=== PATIENT | male | born 2000 | race Caucasian/White ===

== ENCOUNTER 2023-04-26 08:28 | Outpatient (OUT) | payer BC, SELFPAY ==
--- NOTE | 2023-04-26 08:35 | MR_ITS ---
The [address] [address] Patient Name: SHY HARDWICK MRN: [facility]:[id number] date: 2000 Sex: M Assigned Patient Location: MRI Current Patient Location: MRI Accession/Order Number: [id number] Exam Date: 04/26/2023 08:57 Report Date: 04/26/2023 10:07 At the request of: SHADI BRITO Procedure: MR head/brain wo con MR head/brain wo con, 04/26/2023 8:57 AM EDT INDICATION: Migraine G43.909, Balance problem R26.89 COMPARISON: There is no appropriate prior study for comparison. TECHNIQUE: Multiplanar, multisequential MRI images of brain were obtained without injection of contrast. FINDINGS: The cerebral sulci as well as ventricular system are appropriate for age. There is no restricted diffusion. There is no intracranial mass, mass effect, midline shift, intra or extra-axial fluid collection or large hemorrhage. Normal flow-void in the intracranial vessels is noted. Retention cyst within the right maxillary sinus are noted. The visualized portions of orbits, mastoid air cells as well as remainder of paranasal sinuses are unremarkable. MR/MR head/brain wo con IMPRESSION: Normal MRI of brain. Electronically authenticated by: NORM TURNER Date: 04/26/2023 10:07
== END 2023-04-26 08:29 | disposition home or self-care (01) ==
LOC: MRI 08:31
PROVIDERS: PCP Family Medicine; Visit Provider Physician Assistant Medical
DX: G43.909 Migraine, unspecified, not intractable, without status migrainosus (principal); R26.89 Other abnormalities of gait and mobility
CPT/HCPCS: 70551

== ENCOUNTER 2023-06-22 16:37 | Emergency (ER) | payer BC, SELFPAY ==
[2023-06-22 16:39] VITALS: BP 153/97; PULSE 75; RESP 18; TEMP 36.6; O2SAT 100; BMI 23.7
--- NOTE | 2023-06-22 16:48 | ECG_ITS ---
The [facility] Test Date: 2023-06-22 Pat Name: SHY HARDWICK Department: Room: - Gender: Male Manager Summer: : 2000 Requested By: [id number] Order Number: [id number] Reading MD: KIRA RODGERS Measurements Intervals [place] Rate: 62 P: 51 AR: 136 QRS: 53 QRSD: 108 T: 76 QT: 370 QTc: 374 Interpretive Statements 1100 Sinus rhythm 2440 Incomplete right bundle branch block 9130 borderline ECG No previous ECG available for comparison Electronically Signed On 06-23-2023 6:56:29 EST by KIRA RODGERS
--- NOTE | 2023-06-22 16:48 | CT_ITS ---
The [address] [address] Patient Name: SHY HARDWICK MRN: [id number] date: 2000 Sex: M Assigned Patient Location: ED.MAIN Current Patient Location: Accession/Order Number: [id number] Exam Date: 06/22/2023 17:16 Report Date: 06/22/2023 17:42 At the request of: JUJU MATSON Procedure: CT head/brain wo con EXAM: CT head/brain wo con HISTORY: Vertigo COMPARISON: MRI brain 04/26/2023 TECHNIQUE: Axial CT scans through the head were obtained without IV contrast administration. Dose reduction techniques were achieved by using: automated exposure control and/or adjustment of mA and /or kV according to patient size and/or use of iterative reconstruction technique. FINDINGS: There is no acute intracranial hemorrhage or abnormal extra-axial fluid collection. No mass effect or midline shift is seen. There is no evidence of large acute territorial infarction. There is no hydrocephalus. To the limit of CT, the posterior fossa appears unremarkable. The calvaria and extra cranial soft tissues are unremarkable. The visualized orbits show no abnormal mass. The visualized paranasal sinuses show no air-fluid level. Mastoid air cells are clear. CT/CT head/brain wo con IMPRESSION: Unremarkable CT brain performed without contrast Electronically authenticated by: HORACIO NGUYEN Date: 06/22/2023 17:42
--- NOTE | 2023-06-22 16:56 | ED_ITS ---
HPI - Dizziness General Chief Complaint: Dizziness Stated Complaint: DIZZINESS Time Seen by Provider: 06/22/23 16:41 Source: patient Mode of arrival: walk-in Limitations: no limitations History of Present Illness HPI Narrative: 23-year-old male presents for intermittent dizziness that started the day before yesterday. No fever vomiting or diarrhea. No head injury. He doesn't complain of a headache. From time to time she feels like the whole room is spinning. No localized weakness or numbness. He had similar episode about six years ago but did not go and have it checked. Related Data Home Medications Medication Instructions Recorded Confirmed atogepant 60 mg tablet (Qulipta) 60 mg PO DAILY 06/22/23 06/22/23 Previous Rx's Medication Instructions Recorded meclizine 25 mg tablet 25 mg PO TID PRN dizziness #20 tabs 06/22/23 Allergies Allergy/AdvReac Type Severity Reaction Status Date / Time Penicillins Allergy Mild Verified 06/22/23 16:43 Review of Systems ROS Narrative A ten point review of systems is negative except as noted above. Exam Narrative Exam Narrative: Nurses note and vital signs reviewed and patient is not hypoxic. General: The patient appears well and in no apparent distress. Patient is resting comfortably on cart. Skin: Warm, dry, no pallor noted. There is no rash noted. Head: Normocephalic, atraumatic Eye: Normal conjunctiva, no drainage, EOMI. PERRL Ears, Nose, Mouth, and Throat: oral mucosa is moist. Nares patent. Tympanic membranes are normal in appearance. Cardiovascular: Regular Rate and Rhythm Respiratory: Patient is in no distress, no accessory muscle use, lungs are clear to auscultation, no wheezing, rales or rhonchi Back: non-tender GI: soft and nontender Musculoskeletal: The patient has no evidence of calf tenderness, no pitting edema, symmetrical pulses noted bilaterally Neurological: A&O x4, normal speech; upper and lower extremity strength intact Psychiatric: Cooperative Constitutional Vital Signs, click to edit/add: Last Vital Signs Temp 97.9 F 06/22/23 16:39 Pulse 80 06/22/23 17:02 Resp 18 06/22/23 17:02 BP 126/80 06/22/23 17:02 Pulse Ox 100 06/22/23 16:39 O2 Del Method Room Air 06/22/23 16:39 Course Vital Signs Vital signs: Vital Signs Temperature 97.9 F 06/22/23 16:39 Pulse Rate 75 06/22/23 16:39 Respiratory Rate 18 06/22/23 16:39 Blood Pressure 153/97 H 06/22/23 16:39 Pulse Oximetry 100 06/22/23 16:39 Oxygen Delivery Method Room Air 06/22/23 16:39 Temperature 97.9 F 06/22/23 16:39 Pulse Rate 80 06/22/23 17:02 Respiratory Rate 18 06/22/23 17:02 Blood Pressure 126/80 06/22/23 17:02 Pulse Oximetry 100 06/22/23 16:39 Oxygen Delivery Method Room Air 06/22/23 16:39 MDM - Dizziness MDM Narrative Medical decision making narrative: His workup including CT of the brain is negative. He'll be discharged home on Antivert. The patient happens to have a neurology appointment tomorrow and he'll keep that appointment. Treatment diagnosis and follow-up were discussed with the patient. Differential Diagnosis Differential diagnosis: Likely benign paroxysmal positional vertigo and other (dehydration, acute kidney injury, anemia, dysrhythmia) Lab Data Attestation: I reviewed the patient's lab results. Labs: Lab Results 06/22/23 Range/Units 16:54 WBC 5.7 (4.0-11.0) 10^3/uL RBC 4.77 (4.70-6.10) 10^6/uL Hgb 14.6 (14.0-18.0) g/dL Hct 42.1 (42.0-54.0) % MCV 88.3 (80.0-94.0) fL MCH 30.6 (25.9-34.0) pg MCHC 34.7 (29.9-35.2) g/dL RDW 11.5 (11.0-15.0) % Plt Count 253 (150-450) 10^3/uL MPV 9.9 (9.5-13.5) fL Neut % (Auto) 61.7 (43.0-75.0) % Lymph % (Auto) 25.3 (20.5-60.0) % [place] % (Auto) 8.0 (1.7-12.0) % Eos % (Auto) 3.7 (0.9-7.0) % Baso % (Auto) 1.1 (0.2-2.0) % Neut # (Auto) 3.5 (1.4-6.5) 10^3/uL Lymph # (Auto) 1.4 (1.2-3.8) 10^3/uL [place] # (Auto) 0.5 (0.3-0.8) 10^3/uL Eos # (Auto) 0.2 (0.0-0.7) 10^3/uL Baso # (Auto) 0.1 (0.0-0.1) 10^3/uL Abs Immat Gran (auto) 0.01 (0.00-0.03) 10^3/uL Imm/Tot Granulo (auto) 0.2 (0.0-0.5) % Sodium 139 (136-145) mmol/L Potassium 3.8 (3.5-5.1) mmol/L Chloride 104 (98-107) mmol/L Carbon Dioxide 29.9 (21.0-32.0) mmol/L Anion Gap 8.9 BUN 14.0 (7.0-18.0) mg/dL Creatinine 0.99 (0.70-1.30) mg/dL Est GFR ( Amer) >60 (>=60) Est GFR (Non-Af Amer) >60 (>=60) BUN/Creatinine Ratio 14.1 Glucose 101 (74-106) mg/dL Calcium 9.4 (8.5-10.1) mg/dL Imaging Data CT scan - head: Radiologist's impression: Procedure: CT head/brain wo con EXAM: CT head/brain wo con HISTORY: Vertigo COMPARISON: MRI brain 04/26/2023 TECHNIQUE: Axial CT scans through the head were obtained without IV contrast administration. Dose reduction techniques were achieved by using: automated exposure control and/or adjustment of mA and /or kV according to patient size and/or use of iterative reconstruction technique. FINDINGS: There is no acute intracranial hemorrhage or abnormal extra-axial fluid collection. No mass effect or midline shift is seen. There is no evidence of large acute territorial infarction. There is no hydrocephalus. To the limit of CT, the posterior fossa appears unremarkable. The calvaria and extra cranial soft tissues are unremarkable. The visualized orbits show no abnormal mass. The visualized paranasal sinuses show no air-fluid level. Mastoid air cells are clear. IMPRESSION: Unremarkable CT brain performed without contrast Electronically authenticated by: HORACIO NGUYEN Date: 06/22/2023 17:42 ECG Data Attestation: I personally reviewed and interpreted this ECG as follows: (EKG on my interpretation shows normal sinus rhythm with a rate of 62.) Discharge Plan Discharge Chief Complaint: Dizziness Clinical Impression: Vertigo Patient Disposition: Home, Self-Care Time of Disposition Decision: 18:25 Condition: Good Mode of Transportation: Private Vehicle Prescriptions / Home Meds: New meclizine 25 mg tablet 25 mg PO TID PRN (Reason: dizziness) Qty: 20 0RF No Action Qulipta 60 mg tablet 60 mg PO DAILY Instructions: Vertigo (ED) Stand Alone Forms: Portal Instructions Referrals: Campos Lee DO [Primary Care Provider] - 1 week
[2023-06-22] MEDS: MECLIZINE HCL 12.5 MG TABLET 25 MG PO (17:01)
[2023-06-22 17:02] VITALS: BP 126/80; PULSE 80; RESP 18
[2023-06-22 17:02] LABS: Basophils Absolute Auto 0.1 10^3/uL (0.0-0.1); Basophils Percent Auto 1.1 % (0.2-2.0); Eosinophils Absolute Auto 0.2 10^3/uL (0.0-0.7); Eosinophils Percent Auto 3.7 % (0.9-7.0); Hematocrit 42.1 % (42.0-54.0); Hemoglobin 14.6 g/dL (14.0-18.0); Immature Granulocytes Abs Auto 0.01 10^3/uL (0.00-0.03); Immature Granulocytes Pct Auto 0.2 % (0.0-0.5); Lymphocytes Absolute Auto 1.4 10^3/uL (1.2-3.8); Lymphocytes Percent Auto 25.3 % (20.5-60.0); Mean Corpuscular HGB Conc 34.7 g/dL (29.9-35.2); Mean Corpuscular Hemoglobin 30.6 pg (25.9-34.0); Mean Corpuscular Volume 88.3 fL (80.0-94.0); Mean Platelet Volume 9.9 fL (9.5-13.5); Monocytes Absolute Auto 0.5 10^3/uL (0.3-0.8); Neutrophils Absolute Auto 3.5 10^3/uL (1.4-6.5); Neutrophils Percent Auto 61.7 % (43.0-75.0); Platelet Count 253 10^3/uL (150-450); Red Blood Count 4.77 10^6/uL (4.70-6.10); Red Cell Distribution Width 11.5 % (11.0-15.0); White Blood Count 5.7 10^3/uL (4.0-11.0)
[2023-06-22 17:11] LABS: Anion Gap 8.9; BUN Creatinine Ratio 14.1; Calcium 9.4 mg/dL (8.5-10.1); Carbon Dioxide 29.9 mmol/L (21.0-32.0); Chloride 104 mmol/L (98-107); Estimated GFR (African America >60 (>=60); Estimated GFR (Non-African Ame >60 (>=60); Glucose 101 mg/dL (74-106); Potassium 3.8 mmol/L (3.5-5.1); Sodium 139 mmol/L (136-145)
== END 2023-06-22 18:48 | disposition home or self-care (01) ==
PROVIDERS: Emergency Provider Emergency Medicine; PCP Family Medicine
DX: R42 Dizziness and giddiness (principal); Z79.899 Other long term (current) drug therapy
CPT/HCPCS: 36415; 70450; 80048; 85025; 93005; 99285

== ENCOUNTER 2024-03-10 13:45 | Outpatient (OUT) | payer BC, SELFPAY ==
--- NOTE | 2024-03-10 13:47 | MR_ITS ---
The [address] [address] Patient Name: SHY HARDWICK MRN: [id number] date: 2000 Sex: M Assigned Patient Location: MRI Current Patient Location: Accession/Order Number: [id number] Exam Date: 03/10/2024 14:00 Report Date: 03/11/2024 06:48 At the request of: SHADI BRITO Procedure: MR head/brain wo con EXAMINATION: MR head/brain wo con HISTORY: Migraine Without Status Migrainosus, Dizziness COMPARISON: MR head/brain 04/26/2023 TECHNIQUE: A variety of imaging planes and parameters were utilized for visualization of suspected pathology. Images were performed without contrast. FINDINGS: CEREBRUM: No edema, hemorrhage, mass, acute infarction, or inappropriate atrophy. CEREBELLUM: No edema, hemorrhage, mass, acute infarction, or inappropriate atrophy. BRAINSTEM: No edema, hemorrhage, mass, acute infarction, or inappropriate atrophy. CSF SPACES: Ventricles, cisterns, and sulci are appropriate for age. No hydrocephalus, subarachnoid hemorrhage, or mass. SKULL: No mass or other significant visible lesion. SINUSES: A few tiny mucocele/retention cysts within the paranasal sinuses. ORBITS: Limited views are unremarkable. OTHER: Negative. MR/MR head/brain wo con IMPRESSION: 1. Mild chronic sinusitis. 2. No suspicious abnormality of the brain. Electronically authenticated by: JOEY WADDELL Date: 03/11/2024 06:48
== END 2024-03-10 13:46 | disposition home or self-care (01) ==
LOC: MRI 13:45
PROVIDERS: PCP Family Medicine; Visit Provider Physician Assistant Medical
DX: G43.909 Migraine, unspecified, not intractable, without status migrainosus (principal); R42 Dizziness and giddiness; J32.8 Other chronic sinusitis
CPT/HCPCS: 70551

== ENCOUNTER 2025-06-11 07:26 | Emergency (ER) | payer BC, SELFPAY ==
--- OUTSIDE RECORDS SUMMARY | 2017-08-05 06:31 | XMS_ITS | Continuity of Care Document ---
Author Organization [facility] Address [address] [place] [address] Phone Care Team Providers Care Nutter Up Name Role Phone Dc Fabian Unavailable Unavailable Procedures Procedure Date OFFICE/OUTPATIENT VISIT, EST MENB RP W/OMV VACCINE IM Imm Admin Through 18 Yrs Of Age 017 HPV 9 Valent Imm Admin Through 18 Yrs Of Age 017 MENB RP W/OMV VACCINE IM IMMUNIZATION ADMIN HPV VACCINE NON VALENT IM IMMUNIZATION ADMIN, EACH ADD MENB RP W/OMV VACCINE IM Imm Admin Through 18 Yrs Of Age 016 HPV 9 Valent Imm Admin Through 18 Yrs Of Age 016 HEP A VACC, PED/ADOL, 2 DOSE Imm Admin Through 18 Yrs Of Age 016 HPV 9 Valent Imm Admin Through 18 Yrs Of Age 016 Meningococcal Conjugate Vaccine 016 IMMUNIZATION ADMIN HEP A VACC, PED/ADOL, 2 DOSE IMMUNIZATION ADMIN, EACH ADD HPV VACCINE NON VALENT IM MENINGOCOCCAL VACCINE, IM Imm Admin Through 18 Yrs Of Age 011 HEP A VACC, PED/ADOL, 2 DOSE Imm Admin Through 18 Yrs Of Age 011 MENINGOCOCCAL VACCINE, IM Imm Admin Through 17 Yrs Of Age 011 TDAP VACCINE >7 IM OFFICE/OUTPATIENT VISIT, EST Advance Directives Directive Yes / No Effective Date File Name No Information Encounters Encounter Description Practice Location Reason(s) For Visit Diagnoses Date Provider Providers Copied on Encounter [facility], [address] [place], [place], [id number], [place] tel:[phone] [facility] No Information 7 Visci DO Dc. [address] [place], [place], [id number] , [place]. tel: [phone] OFFICE/OUTPAT IENT VISIT, EST [facility], [address] [place], [place], [id number], [place] tel:[phone] [facility] No Information 7 Visci DO Dc. [address] [place], [place], [id number] , [place]. tel: [phone] [facility], [address] [place], [place], [id number], [place] tel:[phone] [facility] No Information 7 Visci DO Dc. [address] [place], [place], [id number] , [place]. tel: [phone] [facility], [address] [place], [place], [id number], [place] tel:[phone] [facility] No Information 6 Visci DO Dc. [address] [place], [place], [id number] , [place]. tel: [phone] [facility], [address] [place], [place], [id number], [place] tel:[phone] [facility] No Information 2 6 Visci DO Dc. [address] [place], [place], [id number] , [place]. tel: [phone] OFFICE/OUTPAT IENT VISIT, [facility], [address] [place], [place], [id number], [place] tel:[phone] [facility] No Information 1 Cruz Oliver. [address] [place], [place], [id number] , [place]. tel:[phone] Family History Family Member Type Diagnosis Age At Onset No Information Immunizations Vaccine Date Status Comments meningococcal B, OMV, 2 dose schedule administered Source: New Immuniza tion Record Influenza virus vaccine, injectable, quadrivalent, split virus, preservative free, 3 years or older Fluarix, Flulaval or Fluzone Quad refused Source: New Immuniza tion Record HPV (9-valent) administered Source: New I mmunization Record Influenza virus vaccine, injectable, quadrivalent, split virus, preservative free, 3 years or older Fluarix, Flulaval or Fluzone Quad refused Source: New Immuniza tion Record meningococcal B, OMV, 2 dose schedule administered Source: New Immuniza tion Record HPV (9-valent) administered Source: New I mmunization Record Influenza virus vaccine, injectable, quadrivalent, split virus, preservative free, 3 years or older Fluarix, Flulaval or Fluzone Quad refused Source: New Immuniza tion Record Hep A (ped/adol, 2 dose) administered Britt rce: New Immunization Record HPV (9-valent) administered Source: New I mmunization Record MCV4 administered Source: New Imm unization Record Hep A (ped/adol, 2 dose) administered Britt rce: New Immunization Record Tdap administered Source: New Imm unization Record MCV4 (11-55 yrs) administered Source: New Immunization Record Payers Payer name Insurance type Covered alliance party ID Authoriza tion(s) [employer] [place] [id number] Medicaid Wrap - [employer] [place] [id number] [employer] [place] [id number] Medicaid Wrap - [employer] [place] [id number] [employer] [place] [id number] Medicaid Wrap - [employer] MC [id number] [employer] MC [id number] Medicaid Wrap - [employer] [place] [id number] [employer] MC [id number] Medicaid Wrap - [employer] MC [id number] Social History Type Description Quantity Date Captured Comments Sex Male Smoking Status No Information Chief Complaint And Reason For Visit No Information Reason For Referral Reason For Referral No Information History Of Present Illness Encounter Date Complaint History Of Prese nt Illness No Information Functional Status Date Functional Assessmen t No Information Instructions Date Instruction Additional Infor mation No Information Assessments Type Assessment Date No Information Patient Care Teams Name Effective Dates (start - stop) Status Members No Information
--- OUTSIDE RECORDS SUMMARY | 2025-06-08 04:10 | XMS_ITS | Continuity of Care Document ---
Author Organization [facility] Address [address] [place] [address] Phone Care Team Providers Care Director Of Midwifery/Staff Midwife Name Role Phone Jesus Campos MATA Primary Care Provider Campos Lee DO Attending Provider [phone] Mayra Hylton DO Attending Provider Care Teams Patient Care Team Team Status: Active Member Role/Relationship Status Dates Campos Lee DO Primary Care Provider Active Visit Care Team Team Status: Inactive Member Role/Relationship Status Dates Campos Lee DO Primary Care Provider Active Sta rt: March 30, 2025 End: March 30deacon Lee DOAttmushtaq ProviderActiveStart: March 30, 2025 End: March 30, 2025 Visit Care Team Team Status: Inactive Member Role/Relationship Status Dates Campos Lee DO Primary Care Provider Active Sta rt: April 30, 2025 End: April 30deacon Lee DOAttending ProviderActiveStart: April 30, 2025 End: April 30, 2025 Patient Care Team Team Status: Inactive Member Role/Relationship Status Dates Campos Lee DO Primary Care Provider Active Sta rt: June 08, 2025 End: June 08reg Hylton DOAttending ProviderActiveStart: June 08, 2025 End: June 08, 2025 Chief Complaint and Reason for Visit Chief Complaint Admit Date 3 month follow up March 30, 2025 8: 37am lung soreness post covid per bpk Septemb 2024 10:23am 3-4 month follow up June 08, 2025 8 :52am Reason for Visit Admit Date Abdominal pain March 30, 2025 8: 37am Bilateral hand numbness March 30 8:37am Gastritis and duodenitis March 30 8:37am Numbness and tingling of both feet Augus t 2024 8:37am Post covid-19 condition, unspecified Sep tember 2024 10:23am Acid reflux June 08, 2025 8 :52am Bloating June 08, 2025 8 :52am Allergies, Adverse Reactions, Alerts Allergen Type Severity Reaction Last Updated Verified Status banana Allergy Moderate Swelling of Lip/Tongue/Throat June 08, 2025 8:53am Yes Active Penicillins Allergy Unknown Itching, hives May 112024 8:53am Yes Active egg Allergy Unknown Itching June 08, 2025 8:53am Yes Active Social History Smoking Status Status Start Date End Date Date of Observa tion Smokes tobacco daily (finding) January 30, 2025 10:20am Observation Status Observation Response Date of Response Legal Sex Male (finding) Sex Assigned At BirthMaleSeptember 1999 Family History Relationship Condition Age at Onset Recorded Date/T marco father Seizures Unknown motherMigraine headacheUnknownpaternal grandmotherHypertensionUnknownHigh blood cholesterolUnknownHeart diseaseUnknownGlaucomaUnknownfamily memberMalignant neoplasmUnknownpaternal grandfatherHigh blood cholesterolUnknownDementiaUnknown HypertensionUnknownHeart diseaseUnknown Problems Active Problems Problem Diagnosis/Recorded Date Onset Date Stat us Change in bowel habits June 23, 2024 11:25am Unk nown Active Cervical spine pain October 09, 2024 11:12am Unknown Active Fatigue December 01, 2023 10:45am Unknown Act nae Hypotestosteronism December 15, 2024 9:17am Unknown A ctive Migraines December 06, 2021 5:21pm Unknown Acti ve Lack of motivation October 09, 2024 11:43am Unknown Active Neutropenia October 27, 2023 11:28am Unknown Act nae Elevated liver enzymes July 10, 2024 3:26pm Unkno wn Active Vertigo October 27, 2023 11:06am Unknown Act nae Viremia July 10, 2024 3:26pm Unknown Ac tive Bloating August 10, 2024 1:09pm Unknown Act nae BRBPR (bright red blood per rectum) August 10, 2024 1:08pm Unknown Active Lumbar pain October 26, 2023 5:19pm Unknown Acti ve Left foot pain October 09, 2024 11:12am Unknown Ac tive Blood in stool June 23, 2024 11:25am Unknown Active Blood in stool January 05, 2025 9:26am Unknown Acti ve Acid reflux October 26, 2023 5:19pm Unknown Acti ve Abdominal pain June 23, 2024 11:25am Unknown Active Abdominal pain January 05, 2025 9:26am Unknown Acti ve Elevated LDL cholesterol level October 26, 2023 5:19pm Unknown Active Open-angle glaucoma June 23, 2024 11:09am Unknow n Active Vitamin D deficiency October 26, 2023 5:19pm Unknown Active Hepatomegaly July 19, 2024 12:36pm Unknown Active Inactive/Resolved Problems Problem Diagnosis/Recorded Date Onset Date Stat us EBV positive mononucleosis syndrome July 19 12:36pm Unknown Resolved Mononucleosis July 19, 2024 12:30pm Unknown Resolved Melena August 10, 2024 1:02pm Unknown Res olved Medications Medication Status Dose Units Route Directions Qty Days Refills S tart Date Stop Date End Date Reason(s) Instructions Adherence Prednisone 20 mg tablet Discontinued 20 MG PO .COMPLEX 15 10 1 October 25, 2024 3:17pm December 15, 2024 8:52am20 mg orally BID x 5 days , QD x 5 days;Pantoprazole 40 mg tablet,delayed release (DR/EC)Szrnsy14NGZWGbtqw267Ejyf 2024 12:00am Complies with drug therapyClotrimazole-Betamethasone 1-0.05 % bguztAryqjr1WIDSSZ TOPICALTwice iumkk324Yzcaabtsk 2024 12:00amComplies with drug therapy Ondansetron 4 mg tablet,emgrevdirjazezUpmqzennadno9ZOPNL7F091Qtopb 2021 12:00amMarch 2023 10:48amAzithromycin (Zithromax Z-Dante) 250 mg tablet Tfzpvlclrdig9OU.ELMOBYB93Zqjoe 2021 12:00amMarch 2023 5:16pmFor 250 mg dose pack: take 500 mg today (day 1), then 250 mg for 4 days (days 2-5) Divalproex 250 mg tablet,delayed release (DR/EC)Koksoddlxuao651HNDGTnjgu daily June 23, 2024 1:00amJanuary 2024 1:04pmZavegepant (Zavzpret) 10 mg/actuation spray,non-nwmaezrQcwbuhlrrukk8PWMPPGIOYBOYCRZNphi as neededNovember 2023 1:00amJanuary 2024 1:04pmCholecalciferol (Vitamin D3) 25 mcg (1,000 unit) dqaazsnDizsutcrtpai73SASXMOzfugCudzrtap 2023 1:00amDeceer 2023 11:41amDiclofenac Sodium (Arthritis Pain (Diclofenac)) 1 % gel Ljkijertwxxm7NFTHNOZFGIiol times daily as needed for oyml7919Zvxenge 2024 1:00amMarch 2024 11:47amGabapentin 100 mg jsnfbvbSpqxwfzztzhi723PREEIqats ddnuv715Kbbytu 2024 12:00amOctober 2024 8:58amFluticasone Propionate 50 mcg/actuation spray,bexfphzpojNnrsbrighxuo0ZLGVOWVJDJHBQXYUmgrzLxsqn 2023 12:00amMarch 2023 10:48amAtogepant 60 mg uhabymQmtraswymews04FHKM DailyC[facility] 2023 12:00amNovember 2023 11:18amPrednisone 20 mg tablet Ldrvhuxmbrat37MRJUYoekv532Skwgg 2023 12:00amApril 2023 10:44amBID X 5 DAYS, QD X 5 DAYSMethylprednisolone 4 mg tablets,dose gibiHhozjbqhawss9FRbkv package omycowwpwu250Oapbwzfp 11th, 2024 1:00amJanuary 2024 1:04pmPO PER PKG DIRPrednisone 20 mg elcjgpLxgcgszcnkls80TGNQ.NGWFLRW99342Uopzg 2024 1:00amMarch 2024 3:17pm20 mg orally BID x 5 days , QD x 5 days;Diclofenac Sodium (Arthritis Pain (Diclofenac)) 1 % xhmWnhdyjqrirle6VABTEACVHFyvg times daily as needed for rcnr9681Cllww 2024 11:47amJune 2024 2:10pm Cholecalciferol (Vitamin D3) 50 mcg (2,000 unit) fndxnvsIorlup594HWHNMVdlcqJqg 2024 12:00amComplies with drug therapyAscorbate Calcium (Vitamin C) 500 mg uuygniImwlzm070OLQOAyysyXig 2024 12:00amComplies with drug therapyMagnesium Glycinate 100 mg magnesium gkrozmsQuoiut274PFWIYpyqmGob 2024 12:00am Complies with drug therapyPrednisone 20 mg ilaoqkWszliqjbxuhl54ZVFO.ZDKGIWW191 April 30, 2025 12:00amOctober 2024 8:58am20 mg orally BID for five days, QD for five days;Budesonide-Formoterol (Symbicort) 160-4.5 mcg/actuation HFA aerosol ieaxdfxOfbudjkhkrqh7STENUSNKJYADALuhdw daily10.21Sept2024 12:00amOctober 2024 8:58am Immunizations Immunization Event Date Not Given Reason Dose Number Production Manager Lot Number Reason(s) Given Vaccine Information Statement (VIS) Detail Administration Location Meningococcal B, OMV September 15, 2016 Meningococcal B, OMVMarch 2016DTap, unspecifiedNovember 1998DTap, unspecifiedOctober 1999DTap, unspecifiedAugust 2003DTap, unspecified August 18, 1999DTap, unspecifiedMarch 1999Hepatitis A Vaccine, adol/ped, 2 doseAugust 2010Hepatitis A Vaccine, adol/ped, 2 doseAugust 2015Hepatitis B Vaccine, adol/ped dosageNov1998Hepatitis B Vaccine, adol/ped dosageJanuary 1999Hepatitis B Vaccine, adol/ped dosage June 07, 2000Hib, unspecified formulationNov1998Hib, unspecified formulationJanuary 1999Hib, unspecified formulationMarch 1999Hib, unspecified formulationOctober 1999Human Papillomavirus, 9 Valent March 10, 2016Human Papillomavirus, 9 ValentOctober 2015Human Papillomavirus, 9 ValentFebruary 2016Inactivated Poliovirus VaccineAugust 2003Meningococcal LKN7KCuehff 2015Meningococcal Vaccine (MCV4P)March 19, 2011Measles, Mumps, and Rubella Virus VaccineOctober 1999Measles, Mumps, and Rubella Virus VaccineAugust 2003polio, unspecified formulation June 26, 1999polio, unspecified formulationJanuary 1999polio, unspecified formulationJune 1999Tetanus, Diphtheria, Pertussis (Tdap) March 19, 2011Tetanus, Diphtheria, Pertussis (Tdap)March 27, 2023 Vital Signs Vital Reading Result Reference Range Collection Date/Time Height 69 [in_i] March 30, 2025 9:53pkYlvpii76.91 kgAugust 2024 9:00amHeart Rate68 /min 60-100August 2024 9:00amRespiratory rate16 /rqg32-88Nwatqv 2024 9:00amOxygen saturation by Pulse %95-100August 2024 9:00amBP Etxgydnr980 mm[Hg]100-140August 2024 9:00amBP Jqoojafpo56 mm[Hg]60-100 March 30, 2025 9:00amBMI (Body Mass Index)27.3 kg/q7Nfubao 2024 9:00am Vqdtbi59 [in_i]April 30, 2025 11:95atIwznnf93.91 kgSeptember 2024 11:00amHeart Rate66 /miu18-191Ebbmhwuvl 2024 11:00amRespiratory rate18 /jec73-23Yonrysgxn 2024 11:00amOxygen saturation by Pulse jvkryoru29 % 95-100September 2024 11:00amBP Uxrdgpjl720 mm[Hg]100-140September 2024 11:00amBP Nokqqhqhx89 mm[Hg]60-100September 2024 11:00amBMI (Body Mass Index)27.3 kg/l6Msbtruvfe 2024 11:97ocRfabwi19 [in_i]June 08, 2025 8:96huHzuuhj12.45 kgOctober 2024 8:57amBMI (Body Mass Index)28.8 kg/k6Epzlppr 2024 8:57am Advance Directives Advance Directive Response Recorded Date/ Time Advance Directives No December 24 9:26am Insurance Providers Guarantor Sebastian Brooke Address [address] [facility] [address]Qbhddmx Info.Home Phone: Coverage Status Update:2025 Payer Group Member ID Coverage Type Subscriber Relationship to Subscriber Effective Date Expiration Date MMO PEDRO [id number] A Baker Id: [id number] [address] [facility] [address] Home Phone: Email: declined 7..[employer] [place] Id: [id number] A Baker Id: [id number] [address] [facility] [address] [facility] [address] Home Phone: Email: declined 7..[facility] [place] PEDRO [id number] A Baker Id: [id number] [address] [facility] [address] [facility] [address] Home Phone: Email: declined 7..[facility] Id: [id number] Palm[place] Id: [id number] [address] [facility] [address] [facility] [address] Home Phone: Encounters Encounter Location(s) Arrival/Admit Date Discharge/Departure Date Discharge/Departure Disposition Provider(s) Departed Physician/ Provider Office Visit -[facility] [place] March 30, 2025 8:37am March 30, 2025 9:43am Discharged to home care or self care (routine discharge) Kodak West DO Departed Physician/ Provider Office Visit -[facility] April 30, 2025 10:23am April 30, 2025 11:37am Discharged to home care or self care (routine discharge) Kodak West DO Departed Physician/ Provider Office Visit -[facility] June 08, 2025 8:52am June 08, 2025 9:08am Discharged to home care or self care (routine discharge) Mayra Hylton DO Recent Diagnosis Onset Date Admit Date Abdominal pain Unknown March 30 8:37am Bilateral hand numbness Unknown March 102024 8:37am Gastritis and duodenitis Unknown March 30, 2025 8:37am Numbness and tingling of both feet Unknown March 30, 2025 8:37am Post covid-19 condition, unspecified Unknown April 30, 2025 10:23am Acid reflux Unknown June 08 8:52am Bloating Unknown June 08 8:52am Assessments Author Pennie [facility] 2024 9:15amThe above note written by Pennie KIDD acting as human recorder, note dictated by Dr. Campos Lee. Author Malkaarabella Brandt [facility] 2024 11:08amSooner if needed, ER if concerns. The above note written by Malka Brandt LPN, acting as human recorder, note dictated by Dr. Campos Lee. Plan of Treatment Author Pennie [facility] 2024 9:43amPatient did have colonscopy and EGD with Dr. Hylton in January. Colonoscopy noted mild diverticulosis in the right colon, one polyp removed, internal hemorrhoids, otherwise normal colon. Recommended the patient have another colonoscopy in five years. EGD noted esophagitis in the distal esophagus, mild gastritis, mild duodenitis, otherwise normal EGD status post small bowel, gastric, distal and proximal esophageal biopsies obtained. All biopsies were benign. I did prescribe gabapentin 100mg. Advised the patient to start taking at bedtime. If this doesn't cause drowsiness, he can take twice a day or two at bedtime. I would like to see the patient back in two months to follow up. Prescription provided of gabapentin. Noted on EGD results. I advised the patient he needs to continue with the pantoprazole. I will see the patient back early June as the patient might be moving to [place] end of June. Author Malka Brandt [facility] HospitalAuthoredSeptember 2024 11:36amI do feel pt would benefit from treatment with oral steroids and an inhaler for these persistent symptoms. Discussed risks, benefits, and dosing directions of these medications. Pt is agreeable to this treatment plan. He is to call if symptoms do not resolve. Future Tests Future scheduled test information is unavailable Pending Tests Pending diagnostic test information is unavailable Future Visits Future appointment information is unavailable Future Procedures Future procedure information is unavailable Future Medications Future medication information is unavailable Patient Instructions Patient instructions are unavailable
--- OUTSIDE RECORDS SUMMARY | 2025-06-11 07:37 | XMS_ITS | Encounter Summary ---
Author Organization [facility] Address [address] [place] [address] Care Team Providers Care Belt Picker Name Role Phone Jesus Campos Kodak DO Primary Care Provider [phone] Blake Beverly MD Unavailable [phone] Shannon Wharton Unavailable Shadi Brito Unavailable Curtis Zayas DO Unavailable [phone] Encounter Details DateTypeDepartmentCare Team (Latest Contact Info)Zjzagdbznqz98/03/2024linisync Result Encounter [facility] Unsolicited Shadi Brito PA [address] [place] [address] Social History Tobacco UseTypesPacks/DayYears UsedDateSmoking Tobacco: Every DayCigarettes Alcohol UseStandard Drinks/WeekCommentsNever0 (1 standard drink = 0.6 oz pure alcohol)caffeine intake: 1-2 cups per daySex and Gender InformationValueDate RecordedSex Assigned at BirthNot on fileLegal JmnHvii0710/21/2022 7:08 PM EDT Gender IdentityNot on fileSexual OrientationNot on filedocumented as of this encounter Plan of Treatment DateTypeDepartmentCare Team (Latest Contact Info)Hebikgbirmg33/19/2025 9:00 AM ESTOffice Visit [facility] [address] [place] [id number] Curtis Zayas DO [address] [place] [address] documented as of this encounter Procedures Procedure NamePriorityDate/TimeAssociated DiagnosisCommentsMR HEAD/BRAIN WO CON 03/11/2024 6:48 AM EDT documented in this encounter Results * MR HEAD/BRAIN WO CON (03/11/2024 6:48 AM EDT)Anatomical RegionLaterality ModalityOtherSpecimen (Source)Anatomical Location / LateralityCollection Method / VolumeCollection TimeReceived Time03/11/2024 6:48 AM EDT Narrative 03/11/2024 6:50 AM EDT [facility] ?[address] ? [place] [address] ? Magnetic Resonance Report ? Signed ? Patient: SHY BROOKE ? MR#: [id number] ?? : 2000 ?Acct:[id number] ?? Age/Sex: 23 / M ?ADM Date: 03/10/24 ?? Loc: MRI ? Attending Dr: Shadi PAIZ ? Ordering Physician: Shadi Brito ?? Date of Service: 03/10/24 ?? Procedure(s): MR head/brain wo con ?? Accession Number(s): [id number] ? cc: Campos Lee D.O.; Shadi Brito ? [facility] ? [address] ? [place] [address] ? Patient Name: ?? SHY Dowling RONEN ? MRN: [facility]:[id number] ? date: 2000 ?Sex: M ?? Assigned Patient Location: MRI ?? Current Patient Location: ? Accession/Order Number: [id number] ?? Exam Date: 03/10/2024 ??14:00 ?Report Date: 03/11/2024 ??06:48 ? At the request of: ?? SHADI ??LAYA ? Procedure: ??MR head/brain wo con ? EXAMINATION: MR head/brain wo con ? HISTORY: Migraine Without Status Migrainosus, Dizziness ? COMPARISON: MR head/brain 04/26/2023 ? TECHNIQUE: A variety of imaging planes and parameters were utilized for ?? visualization of suspected pathology. Images were performed without contrast. ? FINDINGS: ?? CEREBRUM: No edema, hemorrhage, mass, acute infarction, or inappropriate ?? atrophy. ?? CEREBELLUM: No edema, hemorrhage, mass, acute infarction, or inappropriate ?? atrophy. ?? BRAINSTEM: No edema, hemorrhage, mass, acute infarction, or inappropriate ?? atrophy. ?? CSF SPACES: Ventricles, cisterns, and sulci are appropriate for age. No ?? hydrocephalus, subarachnoid hemorrhage, or mass. ?? SKULL: No mass or other significant visible lesion. ?? SINUSES: A few tiny mucocele/retention cysts within the paranasal sinuses. ?? ORBITS: Limited views are unremarkable. ?? OTHER: Negative. ? MR/MR head/brain wo con ?? IMPRESSION: ? 1. Mild chronic sinusitis. ?? 2. No suspicious abnormality of the brain. ? Electronically authenticated by: BLAKE ??NADIRA ?? Date: 03/11/2024 ??06:48 ? Dictated By: ?Blake Diallo M.D. ? Signed By: ?03/11/24 0650 ? DD/ 0648 ? TD/TT: ? Wagon Washer: Procedure Note Radiology, Radiologist, - 03/11/2024 [place] [address] Magnetic Resonance Report Signed Patient: SHY BROOKE [facility]#: [id number] : 2000Acct:[id number] Age/Sex: 23 / MADM Date: 03/10/24 Loc: MRI Attending Dr: Shadi PAIZ Ordering Physician: Shadi Brito Date of Service: 03/10/24 Procedure(s): MR head/brain wo con Accession Number(s): [id number] cc: Campos Lee D.O.; Shadi Brito [place] [id number] Patient Name: SHY BROOKE MRN: [id number] date: 2000 Sex: M Assigned Patient Location: MRI Current Patient Location: Accession/Order Number: [id number] Exam Date: 03/10/2024 14:00 Report Date: 03/11/2024 06:48 At the request of: SHADI BRITO Procedure: MR head/brain wo con EXAMINATION: MR head/brain wo con HISTORY: Migraine Without Status Migrainosus, Dizziness COMPARISON: MR head/brain 04/26/2023 TECHNIQUE: A variety of imaging planes and parameters were utilized for visualization of suspected pathology. Images were performed withoutcontrast. FINDINGS: CEREBRUM: No edema, hemorrhage, mass, acute infarction, or inappropriate atrophy. CEREBELLUM: No edema, hemorrhage, mass, acute infarction, or inappropriate atrophy. BRAINSTEM: No edema, hemorrhage, mass, acute infarction, or inappropriate atrophy. CSF SPACES: Ventricles, cisterns, and sulci are appropriate for age. No hydrocephalus, subarachnoid hemorrhage, or mass. SKULL: No mass or other significant visible lesion. SINUSES: A few tiny mucocele/retention cysts within the paranasal sinuses. ORBITS: Limited views are unremarkable. OTHER: Negative. MR/MR head/brain wo con IMPRESSION: 1. Mild chronic sinusitis. 2. No suspicious abnormality of the brain. Electronically authenticated by: BLAKE DIALLO Date: 03/11/2024 06:48 Dictated By: Blake Diallo M.D. Signed By:03/11/2450 DD/ TD/TT: Wagon Washer: Authorizing ProviderResult TypeResult StatusAngela Laya PACLINISYNC IMAGINGFinal Result documented in this encounter Visit Diagnoses Not on filedocumented in this encounter Care Teams Team MemberRelationshipSpecialtyStart DateEnd Date Campos Lee DO [address] [place] [address] PCP - [facility]01/06/24 Blake Beverly MD [address] [place] [address] [place] [address] Referring SepiomaauMyfcrtikn75/14/24 Shannon Wharton PA Physician LcmfkqxkjSsnyaabtr04/14/24 Shadi Brito PA [address] [facility] [address] [place] [address] Physician AssistantNeurology01/08/25 Curtis Zayas DO [address] [place] [address] Otolaryngology01/08/25documented as of this encounter
--- OUTSIDE RECORDS SUMMARY | 2025-06-11 07:37 | XMS_ITS | Clinical Summary ---
Author Organization [facility] Address [address] [place] [place] [address] Care Team Providers Care Youth Associate Name Role Phone Samuel Leean Kodak DO Primary Care Provider [phone] Blake Beverly MD Unavailable Shannon Wharton Unavailable Nalini Asif Unavailable Curtis Zayas DO Unavailable [phone] Allergies Active AllergyReactionsCriticalityNoted CunxBsmqlptoVlblqlftrya16/29/2024 Medications MedicationSigDispense QuantityRefillsLast FilledStart DateEnd DateStatus Ascorbic Acid (VITAMIN C PO) Take by mouthActive Cholecalciferol (VITAMIN D3 PO) Take by mouthActive MAGNESIUM GLYCINATE PO Take by mouthActive pantoprazole (ProtoNix) 40 MG EC tablet Take 40 mg by mouth Daily5Active Active Problems ProblemNoted DateDiagnosed YwqlSnumykij91/29/2024 Overview (05/06/2024): Patient presented with migraines that have been occurring since he was 17 years old and are daily with symptoms of dizziness, visual changes, photophobia, and nausea. Patient headaches are Most consistent with migraine headache without aura with associated symptoms including vertigo and blurred vision. The patient had a CT scan of the brain 12/06/21 that was normal. The patient had a Holter Monitor that revealed sinus rthythm mechanism throughout. The patient had a routine EEG that was normal. The patient was previously taking Duexis that helped but he cannot get this anymore. He was started on eletriptan that did not work and he has side effects. Patient stopped taking amitriptyline as he felt it may have caused side effects. He did not have a benefit with doxepin. PSG 04/01/22 was negative for obstructive sleep apnea. He works third shift which is also likely influencing his symptoms. He did not like how he felt on Trileptal. He has had slight benefit with Emgality. He does not like to take medications. He has triptans at home but he does not always take these. He stopped Emgality due to potential side effects. He has had excellent response to Qulipta but he notes his insurance may deny this. The patient notes that he is now experiencing neuropathic pain around the eyes that is intermittent and sharp in nature. This is new for him. Ydxwlicrq31/29/2024 Overview (05/06/2024): The patient continues with dizziness manifested as difficulty focusing when turning his head. He states that this affects his balance as well. He had a significant episode 06/22/23 which prompted ER visit as he could not operate his browne at work due to his symptoms. CT brain 06/22/23 was unremarkable. He was started on meclizine and had some improvement. MRI of the brain 04/26/23 was unremarkable. Wjvjjavxnjw88/29/2024alance pnidjce9401/05/2024 Resolved Problems ProblemNoted DateDiagnosed DateResolved DateMild episode of recurrent major depressive peaogbvq40 Encounters DateTypeDepartmentCare ObgtFwcqddldvvo62/05/2025 10:45 AM EDTOffice Visit [facility] [address] [place] [id number] Brigitte Yadav, SAND OPERATOR COVID-19 (Primary Dx); Cough, unspecified type; Pharyngitis, unspecified owwoelvx28/05/2025Travelfrom Last 3 Months Family History Medical HistoryRelationNameCommentsHypertensionFatherSeizuresFatherHypertension MotherMigrainesMotherSeizuresMotherRelationNameStatusCommentsFatherMother Social History Tobacco UseTypesPacks/DayYears UsedDateSmoking Tobacco: Every DayCigarettes Tobacco Cessation:Ready to Q uit: Not Asked; Counseling Given: Not Answered Alcohol UseStandard Drinks/WeekCommentsNever0 (1 standard drink = 0.6 oz pure alcohol)caffeine intake: 1-2 cups per daySex and Gender InformationValueDate RecordedSex Assigned at BirthNot on fileLegal IlxGzyp2610/21/2022 7:08 PM EDT Gender IdentityNot on fileSexual OrientationNot on file Last Filed Vital Signs Vital SignReadingTime TakenCommentsBlood Xpxkvzzh496/78004/13/2025 10:44 AM EDT Hezlp405404/13/2025 10:44 AM HCHIggopefkbzv99.9 ??C (98.5 ??F)04/13/2025 10:44 AM EDTRespiratory Jjep971904/13/2025 10:44 AM EDTOxygen Sqmqnhsxwy67%04/13/2025 10:44 AM EDTInhaled Oxygen Concentration--Laqpte52.6 kg (186 lb 8.2 oz)04/13/2025 10:44 AM CJQCzeqcs883.3 cm (5' 9 )01/26/2025 9:09 AM EDTBody Mass Index27.54 01/26/2025 9:09 AM EDT Plan of Treatment DateTypeDepartmentCare Team (Latest Contact Info)Qgimmtkmrbh22/19/2025 9:00 AM ESTOffice Visit [facility] [address] [place] [address] Curtis Zayas, DO [address] [place] [address] Procedures Procedure NamePriorityDate/TimeAssociated DiagnosisCommentsSTREP DNA PROBE Ivdqgsd5904/13/2025 11:02 AM EDT Pharyngitis, unspecified etiology RAPID DNA MASBNVnzdagq80/05/2025 11:02 AM EDT Cough, unspecified type from Last 3 Months Results * STREP DNA PROBE (04/13/2025 11:02 AM EDT)ComponentValueRef RangeTest Method Analysis TimePerformed AtPathologist SignatureRESULTnegNegativeSpecimen (Source)Anatomical Location / LateralityCollection Method / VolumeCollection TimeReceived ZrwmWfrdnr29/05/2025 11:02 AM EDT Narrative Authorizing ProviderResult TypeResult StatusLindsalan Yadav NPPOINT OF CARE TEST ENTER/EDIT ORDERABLESFinal Result * (ABNORMAL) RAPID DNA COVID (04/13/2025 11:02 AM EDT)ComponentValueRef Range Test MethodAnalysis TimePerformed AtPathologist SignatureCOVID-19 NAATpositive NegativeSpecimen (Source)Anatomical Location / LateralityCollection Method / VolumeCollection TimeReceived WachAbmhfcfhcwjiwr42/05/2025 11:02 AM EDT Narrative Authorizing ProviderResult TypeResult StatusLindsalan Yadav NPPOINT OF CARE TEST ENTER/EDIT ORDERABLESFinal Result from Last 3 Months Insurance Care Teams Team MemberRelationshipSpecialtyStart DateEnd Campos Lee DO [address] [place] [address] PCP - General01/06/24 Blake Beverly MD [address] [place] [address] [place] [address] Referring RsttcpqlfHyytzjvys99/14/24 Shannon Wharton PA Physician JfzlglmxlYqdffwyec22/14/24 Nalini Asif PA [address] [place] [address] Physician AssistantNeurology01/08/25 Curtis Zayas DO [address] [place] [address] Otolaryngology01/08/25
--- OUTSIDE RECORDS SUMMARY | 2025-06-11 07:37 | XMS_ITS | Clinical Summary ---
Author Organization [facility] Address [address] [place] [address] Phone Care Team Providers Care Sighter Name Role Phone Unavailable Primary Care Provider Unavailabl e Social History Tobacco UseTypesPacks/DayYears UsedDateSmoking Tobacco: Never AssessedSex and Gender InformationValueDate RecordedSex Assigned at BirthNot on fileLegal Sex Male07/03/2022 8:16 PM ESTGender IdentityNot on fileSexual OrientationNot on file Plan of Treatment Not on file
--- OUTSIDE RECORDS SUMMARY | 2025-06-11 07:37 | XMS_ITS | Patient Health Record ---
Author Organization [facility] Address [address] [place] [address] Care Team Providers Care Software Development Project Manager Name Role Phone José Miguel Hahn Primary Care Provider SRIDHAR SANTOYO Unavailable Unavailable Allergies Allergen (clinical drug ingredient) Drug/Non Drug Allergy documented on EMR Reaction Allergy Type Onset Date Status PenicillinUnknownDrug AllergyActive Reason For Referral Reason referral from Dr. Zhen leigh (neurology) for evaluation to treat, concerns of depressed mood, feeling disconnected and trouble with focus. 06/30 Attempt Diagnosis 1 Encounter for screen ing examination for mental health and behavioral disorders (Z13.30) Referral Organization Referrals Referring Provider First Name SRIDHAR Referring Provider Last Name YARELIS Referring Provider Speciality Unknown Referred Organization [facility] Referred Address [address] [place], [place],[address], Referred Provider Specialty Medicatio ns Referral Priority Routine Medications Medication SIG (Take, Route, Frequency, Duration) Notes Start Date End Date Status Vilazodone HCl 10 MG Tablet 1 tablet wit h food Orally Once a day; Duration: 30 day(s) 5Active Social History Tobacco Use: Social History Observation Description Date Details (start date - stop date) Current Smoker NA - NA Social History GeneralSocial InfoQuestionAnswerNotesDepression Screening (PHQ-9):Little interest or pleasure in doing thingsNearly every dayFeeling down, depressed, or hopelessSeveral daysTrouble falling or staying asleep, or sleeping too much Several daysFeeling tired or having little energyNearly every dayPoor appetite or overeatingNearly every dayFeeling bad about yourself-or that you are a failure or have let yourself or your family downNot at allTrouble concentrating on things, such as reading the newspaper or watching televisionSeveral days Moving or speaking so slowly that other people could have noticed. Or the opposite being so fidgetyor restless that you have been moving around a lot more than usualSeveral daysThoughts that you would be better off , or of hurting yourself in some waySeveral days(Consider Suicide Assessment Risk)Total Score14 IntepretationModerate DepressionDrug/Alcohol:Social InfoQuestionAnswerNotes AUDIT-C (Standard)Did you have a drink containing alcohol in the past year?No Fjaxvq9YrrabuthraaexvHzssorwcFkesxyh Use:Social InfoQuestionAnswerNotesTobacco Control (Standard)Tobacco use:Current smoker? How often do you smoke cigarettes? Some days, but not every day Problems Problem Type SNOMED Code ICD Code Onset Dates Problem Status W/U Status Risk Notes Problem Mild recurrent major depression (65697294) Mild episode of recurrent major depressive disorder (F33.0) Activeconfirmed Vital Signs Heart Rate 82 /min 08/15/2024 Rbiginshwyv786.3 degrees Cddajpxzle93/07/2971Elhuhjrp11 %08/15/2024lood pressure jdihtpsxo28 mm Hg08/15/20244055Rzfagh70 in08/15/2024lood pressure systolic 125 mm Hg08/15/20245609Wjdwbe983.2 lbs08/15/2024BMI28.97 kg/m208/15/2024 Encounters Encounter Location Date Provider Diagnosis [facility] [address] [place] [address] 08/15/2024 Robinp Jovani Mild episode of recu rrent major depressive disorder F33.0 Assessments Encounter Date Diagnosis (ICD Code) Assessment Notes Treatment Notes Treatment Clinical Notes Section Notes 08/15/2024 Mild episode of recurrent major depressive disorder (ICD-10 - F33.0) . Patient will trial 10 mg of Viibryd and follow up in 30 days to discuss and evaluate. Patient also will undergo [employer] testing for possible genetic make-up and matching for potential medications inthe future. Informed consent obtained: YES, we discussed the diagnosis/diagnoses, the treatment options, treatment(s) recommended vs. no treatment. We discussed risks and benefits of treatment options, treatmentrecommendations vs. no treatment. . .Based on DSM V, this patient meets the criteria for the diagnosis of: _ .major depressive disorder Recommended treatment is: _ SSRI or SNRI . The patient verbalizes understanding with all questions answered thoroughly and is in agreement with treatment plan. . . Pharmacological management: . Alternative medication plans were discussed with the patient/guardian. All relevant side effects and potential adverse effects were discussed with the patient/guardian. Standard cautions and potential benefits were discussed. Patient/Guardian consented to the start/continuation of the treatment. . . Currently at low risk for self harm. Denies ongoing feelings of hopelessness. Denies ongoing suicidal ideation, intent or plan in session. . . FDA approved medication for this age group include Selective Serotonin Reuptake Inhibitors (SSRI) and Selective Norepinephrine Reuptake Inhibitors (SNRI). Selective serotonin reuptake inhibitors? can cause nausea, headache, upset stomach, diarrhea, constipation, anxiety, irritability, and sexual dysfunction. Please monitor for worsening of symptoms, especially suicidal ideations or morbid thoughts, and call office and or go to the emergency department immediately . Plan Of Treatment No Information Medical (General) History Medical History History ICD Code Migraines Hospitalization History Reason Date(Month/Year) sleep study
[2025-06-11 07:38] VITALS: BP 126/85; PULSE 78; TEMP 36.7; O2SAT 97; BMI 28.1
--- OUTSIDE RECORDS SUMMARY | 2025-06-11 07:40 | XMS_ITS | CCD ---
Author Organization [facility] CliniSymn Care Team Providers Care Detasseler Name Role Phone Campos Lee Primary Care Provider Campos Lee Attending Provider [phone] Carmencita Adams Unavailable Campos Lee Unavailable DO Campos Lee Primary Care Provider MD Vlad Byers Attending Provider [phone] MD Joey Beverly Referring Provider DO Campos Lee Primary Care Provider DO Campos Lee Attending Provider [phone] MD Eloy Turner Jr Emergency Provider DO Campos Lee Primary Care Provider [phone] DO Campos Lee Attending Provider Campos Lee MD Primary Care Provider Joey Beverly MD Unavailable [phone] Shannon Hughes Unavailable Campos Lee DO Primary Care Provider [phone] Campos Lee DO Attending Provider Shannon Santoyo PA-C Attending Provider Varinder Lee DO Attending Provider Campos Lee DO Primary Care Provider [phone] Campos Lee DO Attending Provider [phone] Campos Lee DO Primary Care Provider Campos Lee DO Primary Care Provider Joey Beverly MD Unavailable Unavailable Kuns DO, Campos Primary Care Provider [phone] Kuns DO, Campos Attending Provider Nalini Navarrete Unavailable Curtis Musa DO Unavailable Shannon Hughes Unavailable Kuns, Campos Attending Unavailable Kuns, Campos Admitting Unavailable Kuns, Campos Primary Care Unavailable Kuns, Campos Attending Unavailable Kuns, Campos Admitting Unavailable Kuns, Campos Primary Care Unavailable Kuns, Campos Attending Unavailable Kuns, Campos Admitting Unavailable Kuns, Campos Primary Care Unavailable Ly, Mayra L Admitting Unavailable Ly, Mayra L Attending Unavailable Kuns, Campos Primary Care Unavailable Kuns, Campos Primary Care Unavailable Kuns, Campos Attending Unavailable Kuns, Campos Admitting Unavailable Kuns, Campos Primary Care Unavailable Kuns, Campos Attending Unavailable Kuns, Campos Admitting Unavailable Shannon Santoyo C Admitting Unavailable HillShannon C Attending Unavailable Kuns, Campos Primary Care Unavailable Kuns, Varinder Attending Unavailable Kuns, Campos Primary Care Unavailable Kuns, Varinder Admitting Unavailable Kuns DO, Campos Primary Care Provider Ly DO, Mayra L Attending Provider [phone] Ly DO, Mayra L Other Provider [place] Marjorie KIDD Attending Provider Unavailab le Kuns DO, Campos Attending Provider [phone] JADE SAMANIEGO Attending Unavailable CURTIS MUSA Attending Unavailable DOUG GOODWIN Attending Unavailable SHANNON SANTOYO Attending Unavailable SHANNON SANTOYO Attending Unavailable NALINI ASIF Attending Unavailable CURTIS MUSA Referring Unavailable CURTIS MUSA Attending Unavailable NALINI ASIF Referring Unavailable NALINI ASIF Attending Unavailable NALINI ASIF Attending Unavailable Joey Beverly MD Unavailable Kuns DO, Campos Primary Care Provider Ly DO, Mayra Ayon Attending Provider Campos Lee DO Primary Care Provider [phone] Joey Beverly MD Unavailable [phone] Shannon Hughes Unavailable Nalini Navarrete Unavailable Campos Lee DO Primary Care Provider Mayra Hylton DO Attending Provider Unavailable Unavailable Unavailable Allergies Allergy ClassificationReported Allergen(s)Allergy TypeDate of OnsetReaction(s) Facility (20 sources)Penicillins; Translations: [Penicillins]Allergy to substance 40-94-2617Rgtsmzc, Itching, hivesS[facility] (10 sources)Egg proteinDrug allergyButler Hospital [employer] Other (16 sources)PenicillinDrug AllergyhiPlumas District Hospital [employer] Other (7 sources)banana allergenic extractDrug Allergytongue [facility] [employer] Other (1 source)EggDrug allergyButler Hospital [employer] Other (5 sources)Eggs or Egg-derived ProductsDrug allergyButler Hospital [employer] Other (20 sources)Banana Extract; Translations: [banana]Drug Ieetwjf60-04-1256Xmpfbyn, Itching, tongue itchy, Swelling of Lip/Tongue/ThroatScci Hospital [facility]ima (19 sources)egg extract; Translations: [egg]Drug Encgyac71-16-3922VxansceWay[facility] (15 sources)Egg Derived; Translations: [Egg Derived]Allergy to substance 04-54-1888Zczbuky ReactionScci Hospital Lima Medications Current Medications MedicationDrug Class(es)DatesSig (Normalized)Sig (Original)Ascorbic Acid (7 sources)Vitamin CAscorbic Acid (VITAMIN C PO) Take by mouth ActiveAtogepant (Qulipta) 60 MG tablet (6 sources)Start: 03-06-2024 End: 16-82-2942zpcl 1 tablet by mouth once dailyAtogepant (Qulipta) 60 MG tablet Indications: Migraine without status migrainosus, not intractable,unspecified migraine type (CMS/HCC) Take 1 tablet by mouth Daily 30 tablet 3 03/06/2024 05/10/2024 Discontinued (Side effects)Start: 88-28-0631dwsz 1 tablet by mouth once dailyAtogepant (Qulipta) 60 MG tablet Indications: Migraine without status migrainosus, not intractable,unspecified migraine type (CMS/HCC) Take 1 tablet by mouth Daily 30 tablet 3 03/06/2024 Activeatogepant 60 MG Oral Tablet [Qulipta] (2 sources)take 1 tablet by mouth every twenty-four hoursQulipta 60 MG 1 tablet Orally Once a day Activebetamethasone 0.5 mg/ml / clotrimazole 10 mg/ml topical cream (3 sources)Azole Antifungal, CorticosteroidStart: 70-45-6028Pmkyacbysrew- Betamethasone 1-0.05 % cream Active 1 APPLIC TOPICAL Twice daily 45 April 11, 2025 12:00am Complies with drug therapyStart: 10-87-0954Zyqoilzighyo- Betamethasone 1-0.05 % 1 application Externally Twice a day Feb, Active calcium ascorbate 500 mg oral tablet (5 sources)Start: 89-50-5748xvwf 1 tablet by mouth once dailyAscorbate Calcium (Vitamin C) 500 mg tablet Active 500 MG PO Daily December 15, 2024 12:00am Complies with drug therapycholecalciferol 0.05 mg oral capsule (20 sources)Vitamin DStart: 78-62-2645bngj 1 capsule by mouth once daily Cholecalciferol (Vitamin D3) 50 mcg (2,000 unit) capsule Active 100 MCG PO Daily December 15, 2024 12:00am Complies with drug therapyStart: 33-94-0548vnta 1 capsule by mouth once dailyCholecalciferol (Vitamin D3) 50 mcg (2,000 unit) capsule Active 50 MCG PO Daily December 15, 2024 12:00amStart: 06-23-2024 End: 58-98-2041ocby 1 capsule by mouth once dailyCholecalciferol (Vitamin D3) 25 mcg (1,000 unit) capsule Discontinued 25 MCG PO Daily June 23, 2024 1:00am July 19, 2024 11:41amCholecalciferol (VITAMIN D3 PO) Take by mouth Activeclotrimazole 10 mg/ml topical cream (1 source)Azole AntifungalStart: 74-32-9667Vwwnldhcxvxa 1 % 1 application Externally Twice a day for 7 day(s) Jun, Activedexamethasone 2 mg oral tablet (1 source)CorticosteroidStart: 47-30-1208Mzevfejebuiup 2 MG 1 tablet with food or milk Orally 1 tab TID X 3 days , 1 tab BID x 3 days and 1 tab QD x 3 days for 9 days Apr, Activedicyclomine hydrochloride 20 mg oral tablet (2 sources)AnticholinergicStart: 71-87-3558glfn 1 tablet by mouth twice daily as neededDicyclomine HCl 20 MG 1 tablet Orally Twice a day as needed for 30 days Oct, Activedoxepin hydrochloride 10 mg oral capsule (1 source)Tricyclic Antidepressanttake 1 capsule by mouth every twenty-four hoursDoxepin HCl 10 MG 1 capsule at bedtime Orally Once a day Activefamotidine 26.6 mg / ibuprofen 800 mg oral tablet (6 sources)Nonsteroidal Anti-inflammatory Drug, Histamine-2 Receptor Antagonist Start: 76-13-1671mxjx 1 tablet by mouth every eight hoursIbuprofen-Famotidine 800-26.6 MG 1 tablet Orally Three times a day for 30 day(s) Nov, Active 1.5 ml fremanezumab-vfrm 150 mg/ml auto-injector (7 sources)Start: 06-22-2024 End: 98-18-0253qczhcrdydvnt (Ajovy) 225 MG/1.5ML auto-injector Indications: Migraine without status migrainosus, not intractable, unspecified migraine type (CMS/HCC) Inject 1 pen (225 mg) under the skin every 30 (thirty) days 1.68 mL 2 08/30/2024 09/29/2024 Active1 ml galcanezumab-gnlm 120 mg/ml auto-injector (4 sources)Start: 25-22-5161gbfaqb 1 mL by subcutaneous injection every month Emgality 120 MG/ML 1 mL Subcutaneous monthly for 30 days samples Jun, ActiveStart: 65-27-2520Ogmkyvij 120 MG/ML as directed Subcutaneous Jun, ActiveMagnesium glycinate (7 sources)MAGNESIUM GLYCINATE PO Take by mouth ActiveMagnesium Glycinate 100 mg magnesium capsule (5 sources)Start: 37-27-5776Xbcfgzgus Glycinate 100 mg magnesium capsule Active 200 MG PO Daily December 15, 2024 12:00am Complies with drug therapyStart: 34-70-7635Lgrkjnclz Glycinate 100 mg magnesium capsule Active MG PO December 15, 2024 12:00ammeclizine hydrochloride 25 mg oral tablet (9 sources)AntiemeticStart: 06-23-2023 End: 76-82-8789cqxf 1 tablet by mouth three times daily as needed for dizziness meclizine (Antivert) 25 MG tablet Indications: Dizziness Take 1 tablet (25 mg) by mouth 3 (three) times a day as needed for dizziness 90 tablet 3 03/29/2024 04/28/2024 ActiveStart: 70-93-1837rhli 1 tablet by mouth every twenty-four hours Meclizine HCl 25 MG 1 tablet as needed Orally Once a day December, ActiveNo Name (No Known Home Meds) (3 sources)Start: 72-66-5088Sh Name (No Known Home Meds) Active August 10, 2024 12:00amomeprazole 40 mg delayed release oral capsule (2 sources)Proton Pump InhibitorStart: 14-33-8158qcfa 1 capsule by mouth once dailyOmeprazole 40 MG 1 capsule 30 minutes before morning meal Orally Once a day for 90 days Oct, Activepantoprazole 40 mg delayed release oral tablet (5 sources)Proton Pump InhibitorStart: 86-65-8536vhpg 1 tablet by mouth once dailyPantoprazole 40 mg tablet,delayed release (DR/EC) Active 40 MG PO Daily 90 January 30, 2025 12:00am Complies with drug therapypropranolol hydrochloride 40 mg oral tablet (5 sources)beta-Adrenergic BlockerStart: 03-29-2024 End: 20-83-2715irju 1 tablet by mouth in the morningpropranolol (Inderal) 40 MG tablet Indications: Migraine without status migrainosus, not intractable, unspecified migraine type (CMS/HCC) Take 1 tablet (40 mg) by mouth in the morning and 1 tablet (40 mg) before bedtime. 60 tablet 3 03/29/2024 05/10/2024 Discontinued (Side effects)SUMAtriptan 100 mg oral tablet (3 sources)Serotonin-1b and Serotonin-1d Receptor Agonisttake 1 tablet by mouth once, then take 2 tablets by mouth every two hoursSUMAtriptan Succinate 100 MG TAKE 1 TABLET AT ONSET OF HEADACHE, MAY REPEAT 1 TIME IN 2 HOURS. MAX OF 2 TABLETS PER DAY, MAX OF 2 DAYS PER WEEK Oral Active Completed/Discontinued Medications MedicationDrug Class(es)DatesSig (Normalized)Sig (Original)amitriptyline hydrochloride 25 mg oral tablet (3 sources)Tricyclic Antidepressanttake 1 tablet by mouth once daily at bedtime Amitriptyline HCl 25 MG TAKE 1 TABLET BY MOUTH ONCE DAILY AT BEDTIME Oral Not-TakingAtogepant (16 sources)Start: 10-26-2023 End: 45-37-4701idie 1 tablet by mouth once dailyAtogepant 60 mg tablet Discontinued 60 MG PO Daily October 26, 2023 12:00am June 23, 2024 11:18am Start: 10-26-2023 End: 49-93-8811xyhb 1 tablet by mouth once dailyAtogepant 60 mg tablet Discontinued 60 MG PO Daily October 25, 2023 11:00pm June 23, 2024 10:18am Start: 64-81-9308hgkh 60 mg by mouth once dailyAtogepant Active 60 MG PO Daily October 26, 2023 12:00amazithromycin 250 mg oral tablet (20 sources)Macrolide AntimicrobialStart: 12-06-2021 End: 89-33-8969Fkzyevblbhlr (Zithromax Z-Dante) 250 mg tablet Discontinued 0 PO .COMPLEX 6 0 December 06, 2021 12:00am October 26, 2023 5:16pm For 250 mg dose pack: take 500 mg today (day 1), then 250 mg for 4 days (days 2-5)take 2 tablets by mouth once daily, then take 1 tablet by mouth once dailyZithromax 250 MG 2 tablet on the first day, then 1 tablet daily for 4 days Orally as directed Nourho702 actuat budesonide 0.16 mg/actuat / formoterol fumarate 0.0045 mg/actuat metered dose inhaler (2 sources)Corticosteroid, beta2-Adrenergic AgonistStart: 04-30-2025 End: 42-34-0568Skndyvbyjt-Formoterol (Symbicort) 160-4.5 mcg/actuation HFA aerosol inhaler Discontinued 2 INH INHALATION Twice daily 10.2 1 April 30, 2025 12:00am June 08, 2025 8:58amdiclofenac sodium 0.01 mg/mg topical gel (16 sources)Nonsteroidal Anti-inflammatory DrugStart: 00-90-4679Imvjqtebjz Sodium (Arthritis Pain (Diclofenac)) 1 % gel Active 2 GM TOPICAL Four times daily as needed for pain October 09, 2024 11:47amStart: 97-91-2325Tzdtalyaxb Sodium (Arthritis Pain (Diclofenac)) 1 % gel Active 2 GM TOPICAL Four times daily as needed for pain October 09, 2024 10:47amStart: 09-04-2024 End: 97-21-5816Neefjvgxfh Sodium (Arthritis Pain (Diclofenac)) 1 % gel Discontinued 2 GM TOPICAL Four times daily as needed for pain 100 October 09, 2024 11:47am January 22, 2025 2:10pmStart: 09-04-2024 End: 78-84-9551Ylrgeoxrva Sodium (Arthritis Pain (Diclofenac)) 1 % gel Discontinued 2 GM TOPICAL Four times daily as needed for pain September 04, 2024 1:00am October 09, 2024 11:47amStart: 09-04-2024 End: 59-04-5129Uplpvrbawx Sodium (Arthritis Pain (Diclofenac)) 1 % gel Discontinued 2 GM TOPICAL Four times daily as needed for pain September 04, 2024 12:00am October 09, 2024 10:47amStart: 53-34-8522Vhgdlzprrd Sodium (Arthritis Pain (Diclofenac)) 1 % gel Active 2 GM TOPICAL Four times daily as needed for pain September 04, 2024 12:00ameletriptan 40 mg oral tablet (10 sources)Serotonin-1b and Serotonin-1d Receptor AgonistStart: 11-11-2020 Eletriptan Hydrobromide 40 MG 1 tablet Orally at onset of headache, limit 2 in 24 hr. Nov, Not-Takingfluticasone propionate 0.05 mg/actuat metered dose nasal spray (18 sources)CorticosteroidStart: 10-26-2023 End: 64-42-2796Pvoffgsazjy Propionate 50 mcg/actuation spray,suspension Discontinued 2 SPRAY INTRANASAL Daily October 26, 2023 12:00am October 27, 2023 10:48amStart: 32-20-9409tilb 2 spray(s) nasal route once dailyFluticasone Propionate 50 MCG/ACT 2 sprays in each nostril Nasally Once a day for 30 days Apr, Activegabapentin 100 mg oral capsule (3 sources)Anti-epileptic AgentStart: 03-30-2025 End: 12-20-7955whdd 1 capsule by mouth twice dailyGabapentin 100 mg capsule Discontinued 100 MG PO Twice daily 60 1 March 30, 2025 12:00am 2024 8:58amLORazepam 0.5 mg oral tablet (9 sources)BenzodiazepineStart: 38-87-2377totd 1 tablet by mouth every eight hours as neededLORazepam 0.5 MG 1 tablet Orally Q 8 hrs prn May cause drowsiness December, Not-TakingmethylPREDNISolone 4 mg oral tablet (12 sources)CorticosteroidStart: 07-19-2024 End: 87-53-2952Ytkrdawkvihyswpgke 4 mg tablets,dose pack Discontinued 0 PO per package directions 21 July 19, 2024 1:00am August 10, 2024 1:04pm PO PER PKG DIRondansetron 4 mg disintegrating oral tablet (20 sources)Serotonin-3 Receptor AntagonistStart: 12-06-2021 End: 66-49-9926difj 1 tablet by mouth every eight hoursOndansetron 4 mg tablet,disintegrating Discontinued 4 MG PO Q8H 9 3 0 December 06, 2021 12:00am October 27, 2023 10:48ampredniSONE 20 mg oral tablet (20 sources)Start: 04-30-2025 End: 08-71-7876Ivfafbhpnx 20 mg tablet Discontinued 20 MG PO .COMPLEX 15 0 April 30, 2025 12:00am June 08, 2025 8:58am 20 mg orally BID for five days, QD for five days;Start: 10-09-2024 End: 71-77-7880Umhaollapm 20 mg tablet Discontinued 20 MG PO .COMPLEX 15 10 October 25, 2024 3:17pm December 15, 2024 8:52am 20 mg orally BID x 5 days , QD x 5 days;Start: 10-27-2023 End: 22-24-3791Rlktbaxjdd 20 mg tablet Discontinued 20 MG PO Daily 15 October 27, 2023 12:00am December 01, 2023 10:44am BID X 5 DAYS, QD X 5 DAYSStart: 75-05-0460cvoabqXJLJ 20 MG 1 tablet Orally BID x 5 days and daily x 5 days December, ActiveTheraputic Injection (12 sources)Start: 98-80-6295Jxsybnbbme Injection Jun, 120 mgtiZANidine 4 mg oral tablet (20 sources)Central alpha-2 Adrenergic AgonistStart: 02-29-2024 End: 68-63-1629xdse 1 tablet by mouth at bedtimetiZANidine (Zanaflex) 4 MG tablet Indications: Neck pain 1/2 to 1 tab PO at bedtime for muscle spasm 30 tablet 5 08/30/2024 04/13/2025 Discontinued (Therapy completed)traZODone hydrochloride 50 mg oral tablet (12 sources)Serotonin Reuptake InhibitorStart: 11-29-2024 End: 81-94-8934mtxs 1 tablet by mouth at bedtimetraZODone (Desyrel) 50 MG tablet Indications: Shifting sleep-work schedule, affecting sleep Take 1 tablet (50 mg) by mouth at bedtime 30 tablet 3 11/29/2024 04/13/2025 Discontinued (Therapy completed)divalproex sodium 250 mg delayed release oral tablet (20 sources)Mood Stabilizer, Anti-epileptic AgentStart: 06-22-2024 End: 06-64-9253tjvm 1 tablet by mouth twice dailyDivalproex 250 mg tablet,delayed release (DR/EC) Discontinued 250 MG PO Twice daily June 23, 2024 1:00am August 10, 2024 1:04pmStart: 05-25-2024 End: 06-77-2147tiji 1 tablet by mouth in the morningdivalproex (Depakote) 500 MG EC tablet Indications: Migraine without status migrainosus, not intractable, unspecified migraine type (CMS/HCC) Take 1 tablet (500 mg) by mouth in the morning and 1 tablet (500 mg) before bedtime. Do not crush, chew, or split.. 60 tablet 2 05/25/2024 06/22/2024 Discontinued (Reorder)Start: 05-10-2024 End: 06-10-9006fcss 1 tablet by mouth in the morningdivalproex (Depakote) 250 MG EC tablet Indications: Migraine without status migrainosus, not intractable, unspecified migraine type (CMS/HCC) Take 1 tablet (250 mg) by mouth in the morning and 1 tablet (250 mg) before bedtime. Do not crush, chew, or split.. 60 tablet 2 05/10/2024 05/25/2024 Discontinued (Reorder)Zavegepant (13 sources)Start: 06-23-2024 End: 43-75-2857Kkdthtbslk (Zavzpret) 10 mg/actuation spray,non-aerosol Discontinued 1 SPRAY INTRANASAL Once as needed June 23, 2024 1:00am August 10, 2024 1:04pmStart: 06-23-2024 End: 67-04-3900Ramfleztyx (Zavzpret) 10 mg/actuation spray,non-aerosol Discontinued 1 SPRAY INTRANASAL Once as needed June 23, 2024 12:00am August 10, 2024 12:04pmStart: 70-41-7710Hcxudyjfzt (Zavzpret) 10 mg/actuation spray,non-aerosol Active 1 SPRAY INTRANASAL Once as needed June 23, 2024 12:00amZavegepant HCl 10 MG/ACT solution (20 sources)Start: 05-10-2024 End: 21-73-8356aasg 10 mg nasal route once daily as neededZavegepant HCl 10 MG/ACT solution Indications: Migraine without status migrainosus, not intractable, unspecified migraine type Administer 10 mg into affected nostril(s) Daily as needed (migraine) 8 each 1 05/10/2024 04/13/2025 Discontinued (Therapy completed)Start: 61-86-6848dvhi 10 mg nasal route once daily as needed Zavegepant HCl 10 MG/ACT solution Indications: Migraine without status migrainosus, not intractable, unspecified migraine type Administer 10 mg into affected nostril(s) Daily as needed (migraine) 8 each 1 05/10/2024 ActiveStart: 73-46-9389fjxa 10 mg nasal route once daily as neededZavegepant HCl 10 MG/ACT solution Indications: Migraine without status migrainosus, not intractable, unspecified migraine type (CMS/HCC) Administer 10 mg into affected nostril(s) Daily as needed (migraine) 8 each 1 05/10/2024 Active Problems Active Problems Problem ClassificationProblemDateDocumented DateEpisodic/ChronicAbdominal pain (20 sources)Abdominal pain; Translations: [Unspecified abdominal pain]Onset: 60-17-5589OkcapshcXejizroqannhcj/social admission (2 sources)Person with feared health complaint in whom no diagnosis is made; Translations: [Concern about disease without diagnosis]24-21-9789Dpvlwxvu Allergic reactions (20 sources)Photosensitivity; Translations: [Other specified acute skin changes due to ultraviolet radiation]Onset: 03-04-2022 Resolved: 03-38-1092DdxyatnqXrxbucsqs and vision defects (18 sources)Eye / vision finding; Translations: [Unspecified visual disturbance] Onset: 12-09-2021 Resolved: 62-76-7225FrjoidggVjsywoiuxe associated with dizziness or vertigo (20 sources)Dizziness; Translations: [Dizziness and giddiness]Onset: 12-09-2021 Resolved: 53-38-0630InwkykrlSlmetcip of white blood cells (20 sources)Neutropenia; Translations: [Neutropenia, unspecified]Onset: 963004-10-4230RugkohiPsakmbttk of lipid metabolism (20 sources)Pure hypercholesterolemia; Translations: [Pure hypercholesterolemia, unspecified]Onset: 49-74-3488UgaxwoyUwlclsonj of teeth and jaw (3 sources)Jaw pain; Translations: [Jaw pain]EpisodicEsophageal disorders (20 sources)Acid reflux; Translations: [Gastro-esophageal reflux disease without esophagitis]ChronicGastritis and duodenitis (3 sources)Gastroduodenitis; Translations: [Gastroduodenitis, unspecified, without bleeding]73-19-6361YljoytgcWkemjlacsdmiesed hemorrhage (20 sources)Hematochezia; Translations: [Melena]Onset: 11-30-280908 EpisodicGenitourinary symptoms and ill-defined conditions (3 sources)Cloudy urine; Translations: [Unspecified abnormal findings in urine] EpisodicGlaucoma (13 sources)Open-angle glaucoma; Translations: [Unspecified open-angle glaucoma, stage unspecified]75-87-9668VvtkhrtRwbnsgwx; including migraine (20 sources)Cluster headache; Translations: [Cluster headache syndrome, unspecified, not intractable]Onset: 12-03-2021 Resolved: 07-55-9662UhvogvsZtlqjdzm; including migraine (16 sources)Headache; Translations: [Recurrent headache]EpisodicMalaise and fatigue (16 sources)Fatigue; Translations: [Other fatigue]Onset: EpisodicMiscellaneous mental health disorders (2 sources)Depressed mood; Translations: [Other symptoms and signs involving emotional state]58-54-0053YnqjolooXrhjdajjxar deficiencies (20 sources)Vitamin D deficiency; Translations: [Vitamin D deficiency, unspecified]Onset: 46-13-1798QxihqooBjhxk connective tissue disease (1 source)Cramp and spasmEpisodicOther connective tissue disease (4 sources)Foot pain; Translations: [Pain in left foot]39-24-5675GmkxalfcPojjh connective tissue disease (3 sources)Pain in left foot; Translations: [Pain in left foot]10-09-2024 EpisodicOther ear and sense organ disorders (2 sources)Pain of ear structure; Translations: [Otalgia, bilateral]Episodic Other ear and sense organ disorders (1 source)Otalgia, bilateralEpisodicOther ear and sense organ disorders (1 source)Bilateral sensation of blocked ears; Translations: [Other specified disorders of ear, bilateral]35-16-6629XcuvnyzsBcttu endocrine disorders (5 sources)Hypotestosteronism; Translations: [Endocrine disorder, unspecified] 39-41-8303VgxiqfmyCkzgm endocrine disorders (2 sources)Endocrine disorder, unspecified; Translations: [Unspecified endocrine disorder]54-96-1194ConzfvxtEekjz gastrointestinal disorders (13 sources)Altered bowel function; Translations: [Change in bowel habit] 50-23-2481SbplodksZhtul gastrointestinal disorders (14 sources)Abdominal bloating; Translations: [Abdominal distension (gaseous)] 30-04-2237KvlajchyBcwfv gastrointestinal disorders (8 sources)Abdominal distension (gaseous); Translations: [Flatulence, eructation, and gas pain]47-12-6852DrskzswhNhimu infections; including parasitic (2 sources)Post-viral disorder; Translations: [Post covid-19 condition, unspecified]44-01-9169GbhjtnyRxtfw liver diseases (12 sources)Elevated liver enzymes level; Translations: [Abnormal levels of other serum enzymes]23-12-2367NrynmaqoYswax liver diseases (12 sources)Large liver; Translations: [Hepatomegaly, not elsewhere classified] 86-70-4855QbhawvcdEcxfk liver diseases (7 sources)Hepatomegaly, not elsewhere classified; Translations: [Hepatomegaly] 30-70-0776VxcavcvqOngap lower respiratory disease (2 sources)Cough; Translations: [Cough, unspecified type]98-72-4594XzxobhzlTrivb nervous system disorders (4 sources)Circadian rhythm sleep disorder of shift work type; Translations: [Circadian rhythm sleep disorder,shift work type]01-62-8236TknknwpQghqv nervous system disorders (13 sources)Tremor; Translations: [Tremor, unspecified]EpisodicOther nervous system disorders (3 sources)Numbness of hand; Translations: [Anesthesia of skin]03-30-2025 EpisodicOther nervous system disorders (3 sources)Paresthesia of foot ; Translations: [Anesthesia of skin]03-30-2025 EpisodicOther screening for suspected conditions (not mental disorders or infectious disease) (16 sources)Patient encounter status; Translations: [Encounter for screening for cardiovascular disorders]Onset: 12-03-2021 Resolved: 61-86-4132CxudrepkOepvf skin disorders (2 sources)Excessive sweating; Translations: [Generalized hyperhidrosis] 91-81-4866OrnovdcyOzzqf upper respiratory infections (20 sources)Frontal sinusitis; Translations: [Chronic frontal sinusitis]Onset: 12-09-2021 Resolved: 30-35-2167DzmigutVncew upper respiratory infections (2 sources)Pharyngitis; Translations: [Acute pharyngitis, unspecified]04-13-2025 EpisodicOtitis media and related conditions (1 source)Unspecified Eustachian tube disorder, bilateralEpisodicResidual codes; unclassified (20 sources)Hypersomnia; Translations: [Hypersomnia, unspecified]Onset: 073663-85-5060LcimudtGbumfgcs codes; unclassified (14 sources)Family history of seizure disorder; Translations: [Family history of epilepsy and other diseases ofthe nervous system]EpisodicResidual codes; unclassified (7 sources)Low motivation; Translations: [Other specified personal risk factors, not elsewhere classified]84-96-2131SkwsiyxiRzpwvilfdgh; intervertebral disc disorders; other back problems (20 sources)Low back pain; Translations: [Low back pain]Onset: 09-04-2024 57-26-2002OetqdxvdJvkkhsl (16 sources)Near syncope; Translations: [Syncope and collapse]Onset: 12-03-2021 Resolved: 90-47-6948VfalomdzEzzrd infection (20 sources)Viremia; Translations: [Viral infection, unspecified]Onset: 736739-11-7254FuxjmxquJtasb infection (1 source)COVID-19; Translations: [Lab test positive for detection of COVID-19 virus] Past or Other Problems Problem ClassificationProblemDateDocumented DateEpisodic/ChronicMood disorders (11 sources)Depressed mood; Translations: [Recurrent major depressive episodes, mild ]Onset: 01-04-2025 Resolved: 600971-55-9631OjmgzccSjnfjyx (1 source)Tinea corporisOnset: 06-20-2021 Resolved: 49-69-9880FkcvhmceYdeipbwoqda chest pain (1 source)Chest pain, unspecifiedOnset: 12-15-2021 Resolved: 54-71-3283DeeakmbmVeolq connective tissue disease (12 sources)Pain in left foot; Translations: [Pain in limb]Onset: 09-04-2024 45-68-8231PyuaztllWroxi gastrointestinal disorders (14 sources)Change in bowel habit; Translations: [Other symptoms involving digestive system]Onset: 905009-39-2805GmatmoamQvfub liver diseases (8 sources)Abnormal levels of other serum enzymes; Translations: [Other nonspecific abnormal serum enzyme levels]Onset: 043172-19-2031Whnwxvch Other nervous system disorders (1 source)Tremor, unspecifiedOnset: 12-15-2021 Resolved: 08-06-8881WefufgykIxeke nervous system disorders (20 sources)Impairment of balance; Translations: [Other abnormalities of gait and mobility]Onset: 362962-88-6866FzkvmjpjWlcepulv codes; unclassified (2 sources)Family history of epilepsy and other diseases of the nervous system Onset: 12-09-2021 Resolved: 53-64-3009VvjkjoqdScemujpd codes; unclassified (6 sources)Other specified personal risk factors, not elsewhere classified; Translations: [Other specified conditions influencing health status]Onset: 265488-70-3222DiinzqepCmvknog and intentional self-inflicted injury (1 source)Suicidal ideationsOnset: 12-09-2021 Resolved: 04-07-9932Dioqlvqc Results Test NameValueInterpretationReference RangeFacilityLaboratory - Microbiology and Antimicrobial susceptibilityon 64-77-3181BOOM-CoV-2 (COVID-19) RNA SAMY+probe Ql (Unsp spec)PositiveNegativeSamaritan HospitalNo Panel Informationon 04-13-2025 Interpretation and review of laboratory resultsAbnormGundersen Boscobel Area Hospital and ClinicsS. pyogenes DNA SAMY+probe Nom (Unsp spec)on 89-59-9409Kvtxjxkxfezmyb and review of laboratory resultsNoSt. Mary Rehabilitation HospitalRESULTNegativeNegativeSamaritan HospitalLon 01-30-2025L Specimen: [id number] Received: 01/30/25 Status: CARLOS ALBERTO Baird Num: [id number] Spec Type: Surgical Subm Dr: Mayra Hylton DO Tissues: A Colon Biopsy (SM BOWEL BX) B Gastric Biopsy (GASTRIC BX) C Esophagus Biopsy (DISTAL ESO BX) D Esophagus Biopsy (PROXIMAL ESO BX) E Colon Biopsy (TRANSVERSE POLYP) Procedures: HE/10, Gross/Micro L4/5, GMS II Dark Age/ Patient Sex Location Account Attending Physician Shy Hardwick [address] [place] [address] [id number] Mayra Hylton DO SPEC NUM: [id number] RECD: 01/30/25 STATUS: CARLOS ALBERTO BAIRD NUM: [id number] TYRONE: 01/30/25-1154 [facility] DR: Mayra Hylton DO ENTERED: 01/30/25-[address]: KATEY TYPE: Surgical DEPT: S ENTERED BY: [id number] RECV BY: [id number] ORDERED: HE/10, Gross/Micro L4/5, GMS II Dark ORDERED: HE/10, Gross/Micro L4/5, GMS II Dark Supplemental Report Addendum 1 Entered: 02/15/252035 To issue HSV I/II immunohistochemical stain was performed on the tissue block C with appropriate staining control from [facility] ONCOLOGY. HSV I/II: Negative Addendum Signed (signature on file) Adrian Armijo MD 02/15/25 1338 Pathological Diagnosis A. Duodenum (mucosal biopsies): Within normal limits No features of celiac disease or dysplasia seen B. Stomach (mucosal biopsies): Chronic gastritis, minimal and inactive with mild foveolar hyperplasia Specimen: [id number] Received: 01/30/25 Status: CARLOS ALBERTO Baird Num: [id number] Spec Type: Surgical Subm Dr: Mayra Hylton DO Tissues: A Colon Biopsy (SM BOWEL BX) B Gastric Biopsy (GASTRIC BX) C Esophagus Biopsy (DISTAL ESO BX) D Esophagus Biopsy (PROXIMAL ESO BX) E Colon Biopsy (TRANSVERSE POLYP) Procedures: HE/10, Gross/Micro L4/5, GMS II Dark Patient: Shy Hardwick [id number] (Continued) Specimen: [id number] Received: 01/30/25 (Continued) Pathological Diagnosis (Continued) Signed (signature on file) Kenny De La Rosa Jr., MD 02/02/25 1340 Specimen: [id number] Received: 01/30/25 Status: CARLOS ALBERTO Baird Num: [id number] Spec Type: Surgical Subm Dr: Mayra Hylton DO Tissues: A Colon Biopsy (SM BOWEL BX) B Gastric Biopsy (GASTRIC BX) C Esophagus Biopsy (DISTAL ESO BX) D Esophagus Biopsy (PROXIMAL ESO BX) E Colon Biopsy (TRANSVERSE POLYP) Procedures: HE/10, Gross/Micro L4/5, GMS II Dark Patient: Shy Hardwick [id number] (Continued) Specimen: [id number] Received: 01/30/25-1409 (Continued) Pathological Diagnosis (Continued) No Helicobacter pylori organisms, intestinal metaplasia, or dysplasia seen C. Esophagus, distal (mucosal biopsies): Active esophagitis with erosions No glandular epithelium or dysplasia seen A GMS stain for fungal organisms is negative with a satisfactory control See comment D. Esophagus, proximal (mucosal biopsies): Esophageal squamous mucosa with mild hyperplasia and reactive changes No glandular epithelium, features of eosinophilic esophagitis, or dysplasia seen E. Colon, transverse polyp (endoscopic polypectomy/biopsy): Serrated lesion Comment: No features of eosinophilic esophagitis or definite viral inclusions are noted within the distal esophageal biopsies. Immunoperoxidase stains for herpes simplex virus are being performed and a supplemental report will be issued. Clinical Information Abdominal pains, nausea, bloating, bloody stools, constipation, Part A rule out celiac disease, Part B rule out H. pylori, Part C and Part D rule out eosinophilic esophagitis Gross Description Part A is received in formalin labeled with the patients name, date of , and small bowel BX are 2 crenshaw-esquivel, focally erythematous, friable, 0.3 cm each in greatest dimension tissue bits. The specimen is entirely submitted in a single cassette. (1, ns, [id number] A) JG Part B is received in formalin labeled with the patients name, date of , and gastric biopsy are 2 crenshaw-esquivel, f (more content not included)...NormalThe [facility] Physician GroupCT MAXILLOFACIAL WO IV CONTRASTon 68-84-7403AN MAXILLOFACIAL WO IV CONTRASTHISTORY: Generalized headaches. TECHNIQUE: Spiral high resolution axial unenhanced CT images were obtained through the paranasal sinuses with sagittal, coronal reconstructions. All CT scans at this facility use dose modulation, iterative reconstruction, and/or weight based dosing when appropriate to reduce radiation dose to as low as reasonably achievable. COMPARISON: None. RESULT: Post-Surgical Findings: None Sinus Chambers: Mild mucosal thickening especially within the anterior ethmoid air cells. Mild thickening frontal sinuses. Tiny amount of polypoid thickening within the maxillary sinuses. Sphenoid sinuses grossly clear. Nasal Cavities: Visualized nasal cavities are patent. Developmental Anomalies: Sabi cells. Ostiomeatal Complex: Patent within the constraints of the study. Other: The visualized mastoid air cells and middle ear cavities are clear. The soft tissues of the face and orbits are within normal limits within the limitations of the study. IMPRESSION: Mild paranasal sinus disease as discussed. ELECTRONICALLY SIGNED BY: Morris Vincent MDNormalNot AvailableAuditory function testson 91-86-5350Wdyluldme Normal hearing Hallpike: Head Left: NEGATIVE sit to supine NEGATIVE supine to sit Head Right: NEGATIVE sit to supine NEGATIVE supine to sit Samaritan HospitalNONM HealthcareSerum or plasma free testosterone measurement (mass/volume)Ordered By: Campos Lee on 90-48-3789Rztitkqnliue Free [Mass/Vol] Free testosterone measurement by LC-MS/MSLow9.3-.5FFisher-Titus Medical CenterComment on above:Performed at: [facility] [address] [id number] Director: Francis Kearns PhD, Phone: [phone] at: [facility] [address] [id number] Director: Julio Cesar Estrella MD, Phone: [phone] Free and TotalOrdered By: Campos Lee on 56-20-3101Vwnqwsxxnqns [Mass/Vol]278 ng/dL Aqcgbg398-855Pywkbyxfr[address] [place], [place] [address]Comment on above:Adult male reference interval is based on a population ofhealthy nonobese males (BMI <30) between 19 and 39 yearsold. Travison, et.al. JCEM 2017,102;0458-5012. PMID:53302191.Result Comment: Adult male reference interval is based on a population of healthy nonobese males (BMI <30) between 19 and 39 years old. Travison, et.al. JCEM 2017,102;6214-4669. PMID: 55483606.Performed By: #### TEST F + T ####[facility] ,Testosterone Free and Totalon 91-59-7642Kqsfaeinlijb,Free6.7 pg/mLLow9.3-26.5The [facility] Physician GroupComment on above:Result Comment: Performed at: CB - [facility] [address], [place] [id number] Pneumatic Drum Sander: Francis Kearns PhD, Phone: [phone] Performed at: [facility] [id number] Pneumatic Drum Sander: Julio Cesar Estrella MD, Phone: [phone] PERFORMED BY: [place] [address] PATHOLOGIST DELICATESSEN MANAGER DANIEL KNOTT M.D.Performed By: #### TEST F + T ####[facility] ,X-ray reportOrdered By: Matt Walker on 98-23-2770Vvljo report [facility] [place] [address] XRay Report Signed Patient: Shy Hardwick MR#: [id number] : 2000 Acct:[id number] Age/Sex: 24 / M ADM Date: 5 Loc: XDSHC Room: Type: [facility] Attending Dr: Campos Lee DO Copies to: Campos Lee DO~ Ordering Provider: Campos Lee DO Date of Service: 09/06/24 XR/XR foot LT min 3V*: LEFT FOOT PAIN M79.672 LEFT FOOT - 3 views CLINICAL HISTORY: Left foot pain COMPARISON: None FINDINGS: No fracture or dislocation. Joint spaces preserved. No focal soft tissue abnormality. XR/XR foot LT min 3V* IMPRESSION: NO ACUTE PLAIN FILM FINDINGS. Impression dictated by: Matt Walker M.D.09/06/2024 4:26 PM Dictation Location: [place] [address] Transcribed By: [facility] 09/06/241625 Dictated By: Matt Walker MD 09/06/241623 Signed By: 09/06/241625 [facility] Work Phone: Study report[facility] Main [place] [id number] XRay Report Signed Patient: Shy Hardwick MR#: [id number] : 2000 Acct:[id number] Age/Sex: 24 / M ADM Date: 5 Loc: XDSHC Room: Type: [facility] CLI Attending Dr: Campos Lee DO Copies to: Campos Lee DO~ Ordering Provider: Campos Lee DO Date of Service: 09/06/24 XR/XR cervical spine 5V*: NECK PAIN M54.2 CERVICAL SPINE 5 views: CLINICAL HISTORY: Neck pain COMPARISON: None FINDINGS: Cervical vertebral height and alignment maintained from C1 through C6. Cervicalthoracic junction partially obscured by shoulders. Mild straightening/slight reversal of the normal lordosis. No prevertebral soft tissue swelling. XR/XR cervical spine 5V* IMPRESSION: Slight reversal normal lordosis could be related to positioning versus muscle spasm. Otherwise no significant degenerative changes by x-ray. Impression dictated by: Matt Walker M.D.09/06/2024 4:24 PM Dictation Location: [facility] Transcribed By: [facility] 09/06/241623 Dictated By: Matt Walker MD 09/06/241622 Signed By: 09/06/24 [facility] Work Phone: XR cervical spine 5V*on 63-83-7699TT cervical spine 5V*[facility] [place] [address] XRay Report Signed Patient: Shy Hardwick MR#: [id number] 0 : 2000 Acct:[id number] Age/Sex: 24 / M ADM Date: 09/06/24 Loc: XDS Room: Type: [facility] CLI Attending Dr: Campos Lee DO Copies to: Campos Lee DO Ordering Provider: Campos Lee DO Date of Service: 09/06/24 XR/XR cervical spine 5V*: NECK PAIN M54.2 CERVICAL SPINE 5 views: CLINICAL HISTORY: Neck pain COMPARISON: None FINDINGS: Cervical vertebral height and alignment maintained from C1 through C6. Cervical thoracic junction partially obscured by shoulders. Mild straightening/slight reversal of the normal lordosis. No prevertebral soft tissue swelling. XR/XR cervical spine 5V* IMPRESSION: Slight reversal normal lordosis could be related to positioning versus muscle spasm. Otherwise no significant degenerative changes by x-ray. Impression dictated by: Matt Walker M.D.09/06/2024 4:24 PM Dictation Location: [facility]- Transcribed By: [facility] 09/06/241623 Dictated By: Matt Walker MD 09/06/241622 Signed By: 09/06/24 [place] CenterYolandaSt. John's HospitalXR foot LT min 3V*on 09-06-2024 XR foot LT min 3V*[facility] Main [place] [address] [place] [address] XRay Report Signed Patient: Shy Hardwick MR#: [id number] 0 : 2000 Acct:[id number] Age/Sex: 24 / M ADM Date: 09/06/24 [facility] Attending Dr: Campos Lee DO Copies to: Campos Lee DO Ordering Provider: Campos Lee DO Date of Service: 09/06/24 XR/XR foot LT min 3V*: LEFT FOOT PAIN M79.672 LEFT FOOT - 3 views CLINICAL HISTORY: Left foot pain COMPARISON: None FINDINGS: No fracture or dislocation. Joint spaces preserved. No focal soft tissue abnormality. XR/XR foot LT min 3V* IMPRESSION: NO ACUTE PLAIN FILM FINDINGS. Impression dictated by: Matt Walker M.D.09/06/2024 4:26 PM Dictation Location: [place] [address] Transcribed By: [facility] 09/06/241625 Dictated By: Matt Walker MD 09/06/241623 Signed By: 09/06/[address] [place] [address] Physician [facility]antsANA Antinuclear Antibodieson 76-28-4723Lnkqpblomjc Abs, IFAPositiveCritically abnormal.The [facility] Rehabilitation HospitalComment on above:Result Comment: Negative <1:80 Borderline 1:80 Positive >1:80Performed By: #### DAVI, RA ####[facility] ,#### LIPID, CBC, CMP, TSH3, CRP, ESR, URIC ####[facility] [address] [place] [address] USANote 1CommentNormal.The [facility] Physician Group Comment on above:Result Comment: Pattern Potential Disease Association Homogeneous Systemic Lupus Erythematosus, Drug Induced Systemic Lupus Erythematosus, Chronic Autoimmune hepatitis, Juvenile Idiopathic Arthritis Speckled Sjogren Syndrome, Systemic Lupus Erythematosus, Subacute Cutaneous Lupus, Lupus, Congenital Heart Block, Mixed Connective Tissue Disease, Scleroderma-diffuse, Scleroderma-Autoimmune Myositis Overlap Syndrome, Systemic Lupus Ggakfayoyvrxn-Xyqphcjfpmt-Wjsjbnlxpz Myositis Overlap Syndrome, Systemic Autoimmune Rheumatic Disease, Undifferentiated Connective Tissue Disease Nucleolar Systemic Sclerosis, Scleroderma-Autoimmune Myositis Overlap Syndrome, Sjogren Syndrome, Raynaud phenomenon, Pulmonary Arterial Hypertension, Systemic Autoimmune Rheumatic Disease, Cancer Centromere Scleroderma-CREST, Limited Cutaneous SSc, Raynaud's Phenomenon, Primary Biliary Cholangitis Nuclear Dot Primary Biliary Cholangitis Nuclear Primary Biliary Cholangitis, Autoimmune Membrane Hepatitis/Liver disease, Systemic Autoimmune Rheumatic Disease, Autoimmune Cytopenias, Linear Scleroderma, Antiphospholipid Syndrome Performed at: [employer] - [facility] [address] [id number] Pneumatic Drum Sander: Francis Kearns PhD, Phone: [phone] PERFORMED BY: [facility] [address] [place] [address] PATHOLOGIST DELICATESSEN MANAGER DANIEL KNOTT M.D.Performed By: #### DAVI, RA ####[facility] ,#### LIPID, CBC, CMP, TSH3, CRP, ESR, URIC ####[facility] [place] [address] USASpeckled Rdcxzxv5Yciejr.The [facility] Physician GroupComment on above:Result Comment: Dense Fine Speckled pattern is noted. This pattern suggests the presence of DFS70 antibody which has a low prevalence in systemic autoimmune rheumatic diseases. ICAP nomenclature: AC-2,4,5,29Performed By: #### DAVI, RA ####[facility] ,#### LIPID, CBC, CMP, TSH3, CRP, ESR, URIC ####[facility] [place] [id number] USAAlanine aminotransferase [Enzymatic activity/volume] in Serum or PlasmaOrdered By: Campos Lee on 49-90-4674PAM [Catalytic activity/Vol]Alanine aminotransferase [Enzymatic activity/volume] in Serum or PlasmaScci Hospital LimaAlbumin [Mass/volume] in Serum or Plasma by Bromocresol green (BCG) dye binding metho Ordered By: Campos Lee on 94-31-8025Riaptob BCG dye [Mass/Vol]Albumin [Mass/volume] in Serum or Plasma by Bromocresol green (BCG) dye binding metho 3.5-5.7FFisher-Titus Medical CenterAlkaline phosphatase [Enzymatic activity/volume] in Serum or PlasmaOrdered By: Campos Lee on 50-62-1443YOZ [Catalytic activity/Vol]Alkaline phosphatase [Enzymatic activity/volume] in Serum or Przxux67-853AjchqjhdfScci Hospital LimaAspartate aminotransferase [Enzymatic activity/volume] in Serum or PlasmaOrdered By: Campos Lee on 30-85-8679PZC [Catalytic activity/Vol]Aspartate aminotransferase [Enzymatic activity/volume] in Serum or Pbmmqq28-88UbnypttgfScci Hospital Lima Basophils Auto (Bld) [#/Vol]Ordered By: Campos Lee on 79-16-5077Jepngphtv (Bld) [#/Vol]Automated basophil count0.0-0.2FFisher-Titus Medical Center Basophils/100 WBC Auto (Bld)Ordered By: Campos Lee on 33-60-7204Ejuxbjiih/100 WBC (Bld)Automated basophil %.[facility]cci Hospital LimaBilirubin.total [Mass/volume] in Serum or PlasmaOrdered By: Campos Lee on 63-09-3335Brxckdcrf [Mass/Vol]Bilirubin.total [Mass/volume] in Serum or Plasma0.3-1.0Scci Hospital LimaC reactive protein [Mass/volume] in Serum or Plasma Ordered By: Campos Lee on 32-88-6304PJM [Mass/Vol]C reactive protein [Mass/volume] in Serum or Plasma0.0-0.5FFisher-Titus Medical CenterC- Reactive Proteinon 82-08-4134YTW [Mass/Vol]mg/LNormal0.0-0.5The [facility] Physician GroupComment on above:Performed By: #### DAVI, RA ####[facility] ,#### LIPID, CBC, CMP, TSH3, CRP, ESR, URIC ####[facility] [address] [place] [address] USACalcium [Mass/volume] in Serum or PlasmaOrdered By: Campos Lee on 44-04-1505Wpjfayu [Mass/Vol]Calcium [Mass/volume] in Serum or Plasma8.6-10.3FFisher-Titus Medical CenterCarbon dioxide, total [Moles/volume] in Serum or PlasmaOrdered By: Campos Lee on 68-00-8706LS5 [Moles/Vol]Carbon dioxide, total [Moles/volume] in Serum or Plasma 21.0-31.0Scci Hospital LimaChloride [Moles/volume] in Serum or PlasmaOrdered By: Campos Lee on 58-97-3530Svbakmnb [Moles/Vol]Chloride [Moles/volume] in Serum or Rfgbcb55-144OcbhqbgghScci Hospital Lima Cholesterol [Mass/volume] in Serum or PlasmaOrdered By: Campos Lee on 09-04-2024 Cholesterol [Mass/Vol]Cholesterol [Mass/volume] in Serum or Qxqjhn142-554 [facility] Hospital LimaComment on above:Chol less than 200 mg/dl low riskChol 201-239 mg/dl borderline riskChol 240 mg/dl and greater high risk Cholesterol in HDL [Mass/volume] in Serum or PlasmaOrdered By: Campos Lee on 35-80-4751Smajoizxhpv in HDL [Mass/Vol]Serum or plasma high density lipoprotein (HDL) cholesterol wjmrzquzplt19-04IwggoounzScci Hospital LimaComment on above:HDL CHOL ATP-III CLASSIFICATION Cardiovascular RiskHDL > or equal to 60 mg/dL LOWHDL < 40 mg/dL HIGHCholesterol in LDL Calc [Mass/Vol]Ordered By: Campos Lee on 58-18-8473Mmrppaoapmi in LDL [Mass/Vol]Cholesterol in LDL [Mass/volume] in Serum or Plasma by calculation0-100Scci Hospital LimaComment on above:LDL ATP III CLASSIFICATIONLDL less than 100 mg/dL OptimalLDL 100-129 mg/dL Near or above worgzctPHX630-115 mg/dL Borderline highLDL 160-189 mg/dL HighLDL greater than 189 mg/dL Very highCholesterol in VLDL Calc [Mass/Vol] Ordered By: Campos Lee on 56-52-2874Agpyhqoeijl in VLDL [Mass/Vol]Cholesterol in VLDL [Mass/volume] in Serum or Plasma by calculationNovant Health Forsyth Medical Center Regional Medical CenterComplete Blood Count Auto Diffon 17-89-1479Xzjqzfxvj (Bld) [#/Vol]0.1 10*3/uLNormal0.0-0.2The [facility] Physician GroupComment on above:Performed By: #### DAVI, RA ####[facility] ,#### LIPID, CBC, CMP, TSH3, CRP, ESR, URIC ####[place] [address] [place] Basophils/100 WBC (Bld)0.9 %Normal.The [facility] Physician GroupComment on above:Performed By: #### DAVI, RA ####[facility] ,#### LIPID, CBC, CMP, TSH3, CRP, ESR, URIC ####[place] [address] USAEosinophils (Bld) [#/Vol]0.5 10*3/uLHigh0.0-0.45The [facility] Physician GroupComment on above:Performed By: #### DAVI, RA ####[facility] ,#### LIPID, CBC, CMP, TSH3, CRP, ESR, URIC ####[place] [address] USAEosinophils/100 WBC (Bld)7.5 %Normal.The [facility] Physician GroupComment on above:Performed By: #### DAVI, RA ####[facility] ,#### LIPID, CBC, CMP, TSH3, CRP, ESR, URIC #### [place] [address] USAErythrocyte distribution width (RBC) [Ratio]12.8 %Xpfwcf87.0-14.8The [facility] Physician GroupComment on above:Performed By: #### DAVI, RA ####[facility] ,#### LIPID, CBC, CMP, TSH3, CRP, ESR, URIC ####[place] [address] USAHematocrit (Bld) [Volume fraction]45.2 %Normal 38.8-50.0The [facility] Physician GroupComment on above:Performed By: #### DAVI, RA ####[facility] ,#### LIPID, CBC, CMP, TSH3, CRP, ESR, URIC #### [place] [address] USAHemoglobin (Bld) [Mass/Vol]15.4 g/tVZyfyot96.0-17.0The [facility] Physician GroupComment on above:Performed By: #### DAVI, RA ####[facility] ,#### LIPID, CBC, CMP, TSH3, CRP, ESR, URIC ####[place] [address] USALymphocytes (Bld) [#/Vol]2.2 10*3/uLNormal1.00-4.8 The [facility] Physician GroupComment on above:Performed By: #### DAVI, RA ####[facility] ,#### LIPID, CBC, CMP, TSH3, CRP, ESR, URIC #### [place] [address] [place] Lymphocytes/100 WBC (Bld)35.9 %Normal.The [facility] Physician GroupComment on above:Performed By: #### DAVI, RA ####[facility] ,#### LIPID, CBC, CMP, TSH3, CRP, ESR, URIC ####[place] [address] [facility] MEDICAL CENTERMCH (RBC) [Entitic mass]30.9 jdNhibvp32.5-35.2The [facility] Physician GroupComment on above:Performed By: #### DAVI, RA ####[facility] ,#### LIPID, CBC, CMP, TSH3, CRP, ESR, URIC ####[place] [address] USAV (RBC) [Entitic vol]90.7 fL Reslcq61.5-101The [facility] Physician GroupComment on above:Performed By: #### DAVI, RA ####[facility] ,#### LIPID, CBC, CMP, TSH3, CRP, ESR, URIC ####[place] [address] USAMean Corpuscular HGB Conc34.1 g/jVAvovqo58.5-35.6The [facility] Physician GroupComment on above:Performed By: #### DAVI, RA ####[facility] ,#### LIPID, CBC, CMP, TSH3, CRP, ESR, URIC ####[place] [address] USAMonocytes (Bld) [#/Vol]0.5 10*3/uLNormal0.0-0.8The [facility] Physician GroupComment on above:Performed By: #### DAVI, RA ####[facility] ,#### LIPID, CBC, CMP, TSH3, CRP, ESR, URIC ####[place] [address] USAMonocytes/100 WBC (Bld)8.7 % Normal.The [facility] Physician GroupComment on above:Performed By: #### DAVI, RA ####[facility] ,#### LIPID, CBC, CMP, TSH3, CRP, ESR, URIC #### [place] [address] USANeutrophils (Bld) [#/Vol]2.9 10*3/uLNormal1.8-7.7The [facility] Physician GroupComment on above:Performed By: #### DAVI, RA ####[facility] ,#### LIPID, CBC, CMP, TSH3, CRP, ESR, URIC ####[place] [address] USANeutrophils/100 WBC (Bld)47.0 %Normal.The [facility] Physician GroupComment on above:Performed By: #### DAVI, RA ####[facility] ,#### LIPID, CBC, CMP, TSH3, CRP, ESR, URIC ####[place] [address] USANRBC%0.2 /100{WBC}Normal0-0.5 The [facility] Physician GroupComment on above:Performed By: #### DAVI, RA ####[facility] ,#### LIPID, CBC, CMP, TSH3, CRP, ESR, URIC #### [place] [address] USAPlatelet mean volume (Bld) [Entitic vol]8.5 fLNormal6.6-10.1The [facility] Comment on above:Performed By: #### DAVI, RA ####[facility] ,#### LIPID, CBC, CMP, TSH3, CRP, ESR, URIC ####[place] [address] USAPlatelets (Bld) [#/Vol]281 10*3/uLNormal 150-450The [facility] Physician GroupComment on above:Performed By: #### DAVI, RA ####[facility] ,#### LIPID, CBC, CMP, TSH3, CRP, ESR, URIC #### [place] [address] USARBC (Bld) [#/Vol]4.99 10*6/uLNormal3.90-5.60The [facility] Physician GroupComment on above: Performed By: #### DAVI, RA ####[facility] ,#### LIPID, CBC, CMP, TSH3, CRP, ESR, URIC ####[place] [address] USAWBC (Bld) [#/Vol]6.1 10*3/uLNormal4.1-10.5The [facility] Comment on above:Performed By: #### DAVI, RA ####[facility] ,#### LIPID, CBC, CMP, TSH3, CRP, ESR, URIC ####[facility] [address] [place] [address] USAComprehensive Metabolic Panelon 09-04-2024 Albumin [Mass/Vol]4.7 g/dLNormal3.5-5.7The [facility] Physician GroupComment on above:Performed By: #### DAVI, RA #### [facility] , #### LIPID, CBC, CMP, TSH3, CRP, ESR, URIC #### [facility] [address] [place] [address] USAAlbumin/Globulin [Mass ratio]2.0 {ratio}NormalThe [facility] Physician GroupComment on above:Performed By: #### DAVI, RA #### [facility] , #### LIPID, CBC, CMP, TSH3, CRP, ESR, URIC #### [facility] [address] [place] [address] USAALP [Catalytic activity/Vol]72 U/XAwmfqq66-649Dos [facility] Physician GroupComment on above:Performed By: #### DAVI, RA #### [facility] , #### LIPID, CBC, CMP, TSH3, CRP, ESR, URIC #### [facility] [address] [place] [address] USAALT [Catalytic activity/Vol]38 U/LNormal7-52The [facility] Physician GroupComment on above:Performed By: #### DAVI, RA #### [facility] , #### LIPID, CBC, CMP, TSH3, CRP, ESR, URIC #### [facility] [address] [place] [address] USAAnion gap [Moles/Vol]8.5 mmol/LNormal6.0-15.0The [facility] Physician GroupComment on above:Performed By: #### DAVI, RA #### [facility] , #### LIPID, CBC, CMP, TSH3, CRP, ESR, URIC #### [place] [address] USAAST [Catalytic activity/Vol]23 U/WGmqssr15-00Udv [facility] Physician GroupComment on above:Performed By: #### DAVI, RA #### [facility] , #### LIPID, CBC, CMP, TSH3, CRP, ESR, URIC #### [place] [address] USABilirubin [Mass/Vol]0.7 mg/dLNormal0.3-1.0The [facility] Physician GroupComment on above:Performed By: #### DAVI, RA #### [facility] , #### LIPID, CBC, CMP, TSH3, CRP, ESR, URIC #### [place] [address] USACalcium [Mass/Vol]9.6 mg/dLNormal8.6-10.3The [facility] Physician GroupComment on above:Performed By: #### DAVI, RA #### [facility] , #### LIPID, CBC, CMP, TSH3, CRP, ESR, URIC #### [place] [address] USAChloride [Moles/Vol]105 mmol/PKpeqvs82-652Xub [facility] Physician GroupComment on above:Performed By: #### DAVI, RA #### [facility] , #### LIPID, CBC, CMP, TSH3, CRP, ESR, URIC #### [place] [address] USACO2 [Moles/Vol]28.9 mmol/OSlkduq49.0-31.0The [facility] Physician GroupComment on above:Performed By: #### DAVI, RA #### [facility] , #### LIPID, CBC, CMP, TSH3, CRP, ESR, URIC #### [place] [address] USACreatinine [Mass/Vol]0.83 mg/dLNormal0.70-1.30The [facility] Physician GroupComment on above:Performed By: #### DAVI, RA #### [facility] , #### LIPID, CBC, CMP, TSH3, CRP, ESR, URIC #### [facility] [address] [place] [address] USAGFR/1.73 sq M.predicted MDRD (S/P/Bld) [Vol rate/Area] mL/min/{1.73_m2}NormalThe [facility] Physician GroupComment on above:Performed By: #### DAVI, RA #### [facility] , #### LIPID, CBC, CMP, TSH3, CRP, ESR, URIC #### [facility] [address] [place] [address] USAGlobulin (S) [Mass/Vol]2.3 g/dLNormalThe [facility] Physician GroupComment on above:Performed By: #### DAVI, RA #### [facility] , #### LIPID, CBC, CMP, TSH3, CRP, ESR, URIC #### [facility] [address] [place] [address] USAGlucose [Mass/Vol]92 mg/uUScozpq32-032Eaj [facility] Physician GroupComment on above:Result Comment: Random Glucose Reference Range is dependent on time and content of last meal. Glucose of more than 200 mg/dL in a nonstressed, ambulatory subject supports the diagnosis of Diabetes Mellitus. ADA recommended reference rangePerformed By: #### DAVI, RA #### [facility] , #### LIPID, CBC, CMP, TSH3, CRP, ESR, URIC #### [facility] [address] [place] [address] USAPotassium [Moles/Vol]4.4 mmol/LNormal3.5-5.1The [facility] Physician GroupComment on above:Performed By: #### DAVI, RA #### [facility] , #### LIPID, CBC, CMP, TSH3, CRP, ESR, URIC #### [facility] [address] [place] [address] USAProtein [Mass/Vol]7.0 g/dLNormal6.4-8.9The [facility] Physician GroupComment on above:Performed By: #### DAVI, RA #### [facility] , #### LIPID, CBC, CMP, TSH3, CRP, ESR, URIC #### [facility] [address] [place] [address] USASodium [Moles/Vol]138 mmol/NGxmlwb320-972Pnt [facility] Physician GroupComment on above:Performed By: #### DAVI, RA #### [facility] , #### LIPID, CBC, CMP, TSH3, CRP, ESR, URIC #### [facility] [address] [place] [address] USAUrea nitrogen [Mass/Vol]12 mg/dLNormal7-25The [facility] Physician GroupComment on above:Performed By: #### DAVI, RA #### [facility] , #### LIPID, CBC, CMP, TSH3, CRP, ESR, URIC #### [facility] [address] [place] [address] USACreatinine [Mass/volume] in Serum or PlasmaOrdered By: Campos Lee on 15-10-1660Jveguqecac [Mass/Vol]Creatinine [Mass/volume] in Serum or Plasma0.70-1.30[facility] LimaEosinophils Auto (Bld) [#/Vol]Ordered By: Campos Lee on 40-68-2427Bghhbskndst (Bld) [#/Vol]Automated eosinophil countHigh0.0-0.45[facility] LimaEosinophils/100 WBC Auto (Bld)Ordered By: Campos Lee on 22-62-7678Oreucvwafad/100 WBC (Bld) Automated eosinophil %.[facility] LimaErythrocyte Sedimentation Rateon 90-20-9946GYW (Bld) [Velocity]2 mm/hNormal0-14The [facility] Physician GroupComment on above:Result Comment: PERFORMED BY: [facility] [address] [facility] [place] [id number] PATHOLOGIST DELICATESSEN MANAGER DANIEL KNOTT M.D.Performed By: #### DAVI, RA ####[facility] ,#### LIPID, CBC, CMP, TSH3, CRP, ESR, URIC ####[facility] [place] [address] [facility] MEDICAL CENTERErythrocyte distribution width Auto (RBC) [Ratio]Ordered By: Campos Lee on 02-83-1667Oovekkkjufb distribution width (RBC) [Ratio]Erythrocyte distribution width [Ratio] by Automated count 12.0-14.8[facility] LimaErythrocyte sedimentation rate by Photometric methodOrdered By: Campos Lee on 58-83-6328EIN Photometric method (Bld) [Velocity]Erythrocyte sedimentation rate by Photometric method0-14 [facility] LimaGlobulin Calc (S) [Mass/Vol]Ordered By: Campos Lee on 09-13-6021Jryskiik (S) [Mass/Vol]Serum globulin measurement by calculation (mass/volume)[facility] LimaGlucose [Mass/volume] in Serum or PlasmaOrdered By: Campos Lee on 06-73-3550Mcbkehi [Mass/Vol]Glucose [Mass/volume] in Serum or Qkrlzb28-260HvsklelqqScci Hospital LimaComment on above:ADA recommended reference rangeRandom Glucose Reference Range is dependent on time and content of last meal. Glucose of more than 200 mg/dL in a nonstressed, ambulatory subject supports the diagnosisof Diabetes Mellitus. Hematocrit Auto (Bld) [Volume fraction]Ordered By: Campos Lee on 09-04-2024 Hematocrit (Bld) [Volume fraction]Hematocrit [Volume Fraction] of Blood by Automated count38.8-50.0[facility] LimaHemoglobin [Mass/volume] in BloodOrdered By: Campos Lee on 74-14-6730Uzvfftrtkk (Bld) [Mass/Vol]Hemoglobin [Mass/volume] in Blood13.0-17.0[facility] LimaLeukocytes [#/volume] corrected for nucleated erythrocytes in Blood by Automated counOrdered By: Campos Lee on 12-09-4675FWD corrected for nucl RBC Auto (Bld) [#/Vol]Leukocytes [#/volume] corrected for nucleated erythrocytes in Blood by Automated coun4.1-10.5FFisher-Titus Medical CenterLipid Panelon 44-18-6887Wtybovzquja [Mass/Vol]158 mg/xFHiahpv071-161Tfw [facility] Physician GroupComment on above:Result Comment: Chol less than 200 mg/dl low risk Chol 201-239 mg/dl borderline risk Chol 240 mg/dl and greater high riskPerformed By: #### DAVI, RA ####[facility] ,#### LIPID, CBC, CMP, TSH3, CRP, ESR, URIC ####[facility] [id number] [place] [address] USACholesterol in HDL [Mass/Vol] 36 mg/pQNwyysr01-67M[facility] HospitalComment on above:Result Comment: HDL CHOL ATP-III CLASSIFICATION Cardiovascular Risk HDL > or equal to 60 mg/dL LOW HDL < 40 mg/dL HIGHPerformed By: #### DAVI, RA ####[facility] ,#### LIPID, CBC, CMP, TSH3, CRP, ESR, URIC ####[facility] [id number] [place] [address] USACholesterol.total/Cholesterol in HDL [Mass ratio]4.4 {ratio}Normal<5.0The [facility] Rehabilitation HospitalComment on above: Performed By: #### DAVI, RA ####[facility] ,#### LIPID, CBC, CMP, TSH3, CRP, ESR, URIC ####[facility] [id number] [place] [address] USALDL Cholesterol,Fhdovzhwra129 mg/dLNormal0-100The [facility] Physician GroupComment on above:Result Comment: LDL ATP III CLASSIFICATION LDL less than 100 mg/dL Optimal LDL 100-129 mg/dL Near or above optimal LDL 130-159 mg/dL Borderline high LDL 160-189 mg/dL High LDL greater than 189 mg/dL Very highPerformed By: #### DAVI, RA ####[facility] ,#### LIPID, CBC, CMP, TSH3, CRP, ESR, URIC ####[place] [address] [place] [address] USATriglyceride w/Zdiziq792 mg/dL Normal0-149The [facility] Physician GroupComment on above:Result Comment: TRIG ATP III CLASSIFICATION TRIG less than 150 mg/dL Normal TRIG 150-199 mg/dL Borderline high TRIG 200-500 mg/dL High TRIG greater than 500 mg/dL Very high Standard traceable to the Center for Disease Conrtrol and Prevention (CDC) test method.Performed By: #### ADVI, RA ####[facility] ,#### LIPID, CBC, CMP, TSH3, CRP, ESR, URIC ####[place] [address] [place] [address] USAVLDL PRIBSTNQLAW43 mg/dLNormal The [facility] Physician GroupComment on above:Performed By: #### DAVI, RA ####[facility] ,#### LIPID, CBC, CMP, TSH3, CRP, ESR, URIC #### [place] [address] [place] [address] USALymphocytes Auto (Bld) [#/Vol]Ordered By: Campos Lee on 52-87-1563Yuinbgcotjz (Bld) [#/Vol] Lymphocytes [#/volume] in Blood by Automated count1.00-4.8[facility] LimaLymphocytes/100 WBC Auto (Bld)Ordered By: Campos Lee on 09-04-2024 Lymphocytes/100 WBC (Bld)Lymphocytes/100 leukocytes in Blood by Automated count. [facility] Auto (RBC) [Entitic mass]Ordered By: Campos Lee on 27-29-5285LPZ (RBC) [Entitic mass]MCH [Entitic mass] by Automated count 27.5-35.2FGenesis Hospital Auto (RBC) [Mass/Vol]Ordered By: Campos Lee on 48-18-2594QJPK (RBC) [Mass/Vol]MCHC [Mass/volume] by Automated count32.5-35.6FFisher-Titus Medical CenterMCV Auto (RBC) [Entitic vol] Ordered By: Campos Lee on 01-24-1583DRC (RBC) [Entitic vol]MCV [Entitic volume] by Automated count83.5-101[facility] LimaMonocytes Auto (Bld) [#/Vol]Ordered By: Campos Lee on 47-18-1222Irvxwtsxq (Bld) [#/Vol]Automated blood monocyte count0.0-0.8[facility] LimaMonocytes/100 WBC Auto (Bld)Ordered By: Campos Lee on 01-18-3376Lexgfcuqr/100 WBC (Bld)Automated monocyte %.[facility] LimaNeutrophils Auto (Bld) [#/Vol] Ordered By: Campos Lee on 45-14-4288Gsrotawzmjq (Bld) [#/Vol]Neutrophils [#/volume] in Blood by Automated count1.8-7.7FFisher-Titus Medical Center Neutrophils/100 WBC Auto (Bld)Ordered By: Campos Lee on 09-04-2024 Neutrophils/100 WBC (Bld)Automated neutrophil %.[facility] LimaNo Panel InformationOrdered By: Campos Lee on 93-50-1162Brux-Nuclear Antibody Comment 2Comment.[facility] Hospital LimaComment on above: Pattern Potential Disease Association Homogeneous Systemic Lupus Erythematosus, Drug Induced Systemic Lupus Erythematosus, Chronic Autoimmune hepatitis, Juvenile Idiopathic Arthritis Speckled Sjogren Syndrome, Systemic Lupus Erythematosus, Subacute Cutaneous Lupus, Lupus, Congenital Heart Block, Mixed Connective Tissue Disease, Scleroderma-diffuse, Scleroderma- Autoimmune Myositis Overlap Syndrome, Systemic Lupus Crnftyirqwfgb-Qvefiygsfpp-Aizgtcosvr Myositis Overlap Syndrome, Systemic Autoimmune Rheumatic Disease, Undifferentiated Connective Tissue Disease Nucleolar Systemic Sclerosis, Scleroderma-Autoimmune Myositis Overlap Syndrome, Sjogren Syndrome, Raynaud phenomenon, Pulmonary Arterial Hypertension, Systemic Autoimmune Rheumatic Disease, Cancer Centromere Scleroderma-CREST, Limited Cutaneous SSc, Raynaud's Phenomenon, Primary Biliary Cholangit is Nuclear Dot Primary Biliary Cholangitis Nuclear Primary Biliary Cholangitis, AutoimmuneMembrane Hepatitis/Liver disease, Systemic Autoimmune Rheumatic Disease, Autoimmune Cytopenias, Linear Scleroderma, Antiphospholipid Syndrome Performed at: [employer] [facility] [address] [id number] Director: Francis Kearns PhD, Phone: [phone] GFR (CKD-EPI)> 60.0 mL/MinScci Hospital LimaPharmacy Creatinine Clearance (ChemN/[facility] HospitalNucleated erythrocytes [Presence] in Blood by Automated count Ordered By: Campos Lee on 39-58-0091Xucnzmzab RBC Auto Ql (Bld)Nucleated erythrocytes [Presence] in Blood by Automated count0-0.5FFisher-Titus Medical CenterPlatelet mean volume Auto (Bld) [Entitic vol]Ordered By: Campos Lee on 84-47-5159Xqxztmeg mean volume (Bld) [Entitic vol]Platelet mean volume [Entitic volume] in Blood by Automated count6.6-10.1FFisher-Titus Medical CenterPlatelets Auto (Bld) [#/Vol]Ordered By: Campos Lee on 87-05-6911Lkymvaalk (Bld) [#/Vol]Platelets [#/volume] in Blood by Automated fmufw901-346LywywbkayScci Hospital LimaPotassium [Moles/volume] in Serum or PlasmaOrdered By: Campos Lee on 93-40-8531Rfcmhfjuo [Moles/Vol]Potassium [Moles/volume] in Serum or Plasma3.5-5.1FFisher-Titus Medical CenterProtein [Mass/volume] in Serum or PlasmaOrdered By: Campos Lee on 50-41-8540Eniolqn [Mass/Vol]Protein [Mass/volume] in Serum or Plasma6.4-8.9[facility] Hospital LimaRBC Auto (Bld) [#/Vol]Ordered By: Campos Lee on 37-83-3890GAO (Bld) [#/Vol]Erythrocytes [#/volume] in Blood by Automated count3.90-5.60[facility] Rheumatoid Factoron 59-83-8963Avhdwcykob Factor<10.0Normal<14.0The [facility] Physician GroupComment on above:Result Comment: Performed at: - [facility] [address] [place], [place] [id number] Pneumatic Drum Sander: Francis Kearns PhD, Phone: [phone] By: #### DAVI, RA ####[facility] ,#### LIPID, CBC, CMP, TSH3, CRP, ESR, URIC #### [facility] [id number] [place] [address] USASerum homogeneous pattern antinuclear antibody (DAVI) titerOrdered By: Campos Lee on 15-42-1479Pyzpblpiwk nuclear Ab pattern (S) [Titer]Serum homogeneous pattern antinuclear antibody (ADVI) titerTuscarawas Hospitalerum nuclear antibody titerOrdered By: Campos Lee on 48-96-8360Kpqmbcp Ab (S) [Titer]Serum nuclear antibody titerAbnormal.[facility] LimaComment on above:Negative <1:80 Borderline 1:80 Positive >1:80Serum or plasma albumin/globulin mass ratioOrdered By: Campos Lee on 00-83-2682Cpeyniu/Globulin [Mass ratio]Serum or plasma albumin/globulin mass ratioTuscarawas Hospitalerum or plasma anion gap determinationOrdered By: Campos Lee on 79-36-2827Oqmdp gap [Moles/Vol]Serum or plasma anion gap determination6.0-15.0 Tuscarawas Hospitalerum or plasma rheumatoid factor measurement (units/volume)Ordered By: Campos Lee on 97-67-4556Nncrqmqgkz factor QnSerum or plasma rheumatoid factor measurement (units/volume)<14.0[facility] LimaComment on above:Performed at: - [facility] [id number] Director: Francis Kearns PhD, Phone: [phone] Serum or plasma total cholesterol/high density lipoprotein (HDL) cholesterol mass ratOrdered By: Campos Lee on 78-58-8527Zlajtnmyuux.total/Cholesterol in HDL [Mass ratio]Serum or plasma total cholesterol/high density lipoprotein (HDL) cholesterol mass rat<5.0Tuscarawas Hospitalerum speckled pattern antinuclear antibody (DAVI) titerOrdered By: Campos Lee on 65-32-9550Phkfmwne nuclear Ab pattern (S) [Titer]Serum speckled pattern antinuclear antibody (DAVI) titer.[facility] LimaComment on above:Dense Fine Speckled pattern is noted. This pattern suggeststhe presence of DFS70 antibody which hasa low prevalencein systemic autoimmune rheumatic diseases.ICAP nomenclature: AC-2,4,5,29Sodium [Moles/volume] in Serum or PlasmaOrdered By: Campos Lee on 54-49-0778Qtszdd [Moles/Vol]Sodium [Moles/volume] in Serum or Jnraqs106-638 [facility] LimaThyroid Stimulating Hormoneon 97-73-9905SYN Qn 1.29 m[IU]/LNormal0.45-5.33The [facility] Physician GroupComment on above:Result Comment: PERFORMED BY: [facility] [address] [place] [address] PATHOLOGIST DELICATESSEN MANAGER DANIEL KNOTT M.D.Performed By: #### DAVI, RA ####[facility] ,#### LIPID, CBC, CMP, TSH3, CRP, ESR, URIC ####[facility] [id number] [place] [address] USAThyrotropin [Units/volume] in Serum or PlasmaOrdered By: Campos Lee on 99-09-0218XFQ QnThyrotropin [Units/volume] in Serum or Plasma0.45-5.33[facility] Triglyceride [Mass/volume] in Serum or PlasmaOrdered By: Campos Lee on 94-68-7104Pxakvmmwwiah [Mass/Vol]Triglyceride [Mass/volume] in Serum or Plasma 0-149[facility] LimaComment on above:TRIG ATP III CLASSIFICATIONTRIG less than 150 mg/dL NormalTRIG 150-199 mg/dL Borderline highTRIG 200-500 mg/dL High TRIG greater than 500 mg/dL Very highStandard traceable to the Center for Disease Conrtrol and Prevention (CDC) test method. Urate [Mass/volume] in Serum or PlasmaOrdered By: Campos Lee on 68-36-5832Cmcks [Mass/Vol]Urate [Mass/volume] in Serum or Plasma4.4-7.6FFisher-Titus Medical CenterUrea nitrogen [Mass/volume] in Serum or PlasmaOrdered By: Campos Lee on 23-74-8940Jyyx nitrogen [Mass/Vol]Urea nitrogen [Mass/volume] in Serum or Plasma7-25[facility] LimaUric Acidon 84-01-3431Yxpso [Mass/Vol]6.1 mg/dLNormal4.4-7.6The [facility] Physician GroupComment on above: Performed By: #### DAVI, RA #### [facility] , #### LIPID, CBC, CMP, TSH3, CRP, ESR, URIC #### [facility] [address] [place] [address] USAWBC Auto (Bld) [#/Vol]Ordered By: Campos Lee on 09-04-2024 WBC (Bld) [#/Vol]Leukocytes [#/volume] in Blood by Automated count4.1-10.5 [facility] Hospital LimaAlanine aminotransferase [Enzymatic activity/volume] in Serum or PlasmaOrdered By: Campos Lee on 68-66-4717ZEP [Catalytic activity/Vol]Alanine aminotransferase [Enzymatic activity/volume] in Serum or Plasma7-52[facility] LimaAlbumin [Mass/volume] in Serum or Plasma by Bromocresol green (BCG) dye binding methoOrdered By: Campos Lee on 53-99-8916Ykrqzzo BCG dye [Mass/Vol]Albumin [Mass/volume] in Serum or Plasma by Bromocresol green (BCG) dye binding metho3.5-5.7FFisher-Titus Medical CenterAlkaline phosphatase [Enzymatic activity/volume] in Serum or PlasmaOrdered By: Campos Lee on 46-85-5743NIX [Catalytic activity/Vol]Alkaline phosphatase [Enzymatic activity/volume] in Serum or Bvojxg70-127JcqkjglhvScci Hospital LimaAspartate aminotransferase [Enzymatic activity/volume] in Serum or PlasmaOrdered By: Campos Lee on 64-08-0333QAD [Catalytic activity/Vol] Aspartate aminotransferase [Enzymatic activity/volume] in Serum or Csfibc75-15 [facility] LimaBasophils Auto (Bld) [#/Vol]Ordered By: Campos Lee on 82-95-6320Vtyzonazn (Bld) [#/Vol]Automated basophil count0.0-0.2 [facility] LimaBasophils/100 WBC Auto (Bld)Ordered By: Campos Lee on 51-22-6636Ahxzzggyx/100 WBC (Bld)Automated basophil %.[facility] Hospital LimaBilirubin.total [Mass/volume] in Serum or PlasmaOrdered By: Campos Lee on 75-62-2237Xtnuxarov [Mass/Vol]Bilirubin.total [Mass/volume] in Serum or Plasma0.3-1.0[facility] LimaCMV IgG Antibodyon 10-65-9386UJV IgG Antibody<0.84Opbbxf7.00-0.59The [facility] Physician GroupComment on above: Result Comment: Negative <0.60 Equivocal 0.60 - 0.69 Positive >0.69Performed By: #### CMVIGG, CMVIGM #### [facility] , #### CMP, CBC, MONOTEST #### [place] [address] USACMV IgM Antibodyon 04-70-0473QUJ IgM Antibody<30.0Normal 0.0-29.9The [facility] Physician GroupComment on above:Result Comment: Negative <30.0 Equivocal 30.0 - 34.9 Positive >34.9 A positive result is generally indicative of acute infection, reactivation or persistent IgM production. Performed at: [facility] [id number] Pneumatic Drum Sander: Francis Kearns PhD, Phone: [phone] PERFORMED BY: [place] [address] PATHOLOGIST DELICATESSEN MANAGER DANIEL KNOTT M.D.Performed By: #### CMVIGG, CMVIGM #### [facility] , #### CMP, CBC, MONOTEST #### [place] [address] USACalcium [Mass/volume] in Serum or PlasmaOrdered By: Campos Lee on 66-87-9781Lqdpesw [Mass/Vol]Calcium [Mass/volume] in Serum or Plasma 8.6-10.3FFisher-Titus Medical CenterCarbon dioxide, total [Moles/volume] in Serum or PlasmaOrdered By: Campos Lee on 48-54-9476QU4 [Moles/Vol]Carbon dioxide, total [Moles/volume] in Serum or BlycjaMiaj90.0-31.0[facility] LimaChloride [Moles/volume] in Serum or PlasmaOrdered By: Campos Lee on 45-14-6191Jmuuhmyl [Moles/Vol]Chloride [Moles/volume] in Serum or Plasma 98-107[facility] LimaComplete Blood Count Auto Diffon 94-37-9989Vfzgohivt (Bld) [#/Vol]0.1 10*3/uLNormal0.0-0.2The [facility] Physician GroupComment on above:Result Comment: PERFORMED BY: [place] [address] PATHOLOGIST DELICATESSEN MANAGER DANIEL KNOTT M.D.Performed By: #### CMVIGG, CMVIGM #### [facility] , #### CMP, CBC, MONOTEST #### [place] [address] USABasophils/100 WBC (Bld)1.0 %Normal.The [facility] Physician GroupComment on above:Performed By: #### CMVIGG, CMVIGM #### [facility] , #### CMP, CBC, MONOTEST #### [place] [address] USAEosinophils (Bld) [#/Vol]0.6 10*3/uLHigh0.0-0.45The [facility] Physician GroupComment on above:Performed By: #### CMVIGG, CMVIGM #### [facility] , #### CMP, CBC, MONOTEST #### [place] [address] USAEosinophils/100 WBC (Bld)10.3 %Normal.The [facility] Physician GroupComment on above:Performed By: #### CMVIGG, CMVIGM #### [facility] , #### CMP, CBC, MONOTEST #### [place] [address] USAErythrocyte distribution width (RBC) [Ratio]13.2 %Normal 12.0-14.8The [facility] Physician GroupComment on above:Performed By: #### CMVIGG, CMVIGM #### [facility] , #### CMP, CBC, MONOTEST #### [place] [address] USAHematocrit (Bld) [Volume fraction]42.9 %Nlqvqc54.8-50.0The [facility] Physician GroupComment on above:Performed By: #### CMVIGG, CMVIGM #### [facility] , #### CMP, CBC, MONOTEST #### [place] [address] USAHemoglobin (Bld) [Mass/Vol]14.8 g/jMBtxrvb56.0-17.0The [facility] Physician GroupComment on above:Performed By: #### CMVIGG, CMVIGM #### [facility] , #### CMP, CBC, MONOTEST #### [place] [address] USALymphocytes (Bld) [#/Vol]2.0 10*3/uLNormal1.00-4.8The [facility] Physician GroupComment on above:Performed By: #### CMVIGG, CMVIGM #### [facility] , #### CMP, CBC, MONOTEST #### [place] [address] USALymphocytes/100 WBC (Bld)33.1 %Normal.The [facility] Physician GroupComment on above:Performed By: #### CMVIGG, CMVIGM #### [facility] , #### CMP, CBC, MONOTEST #### [place] [address] USAMCH (RBC) [Entitic mass]31.0 gwCyicmt89.5-35.2The [facility] Physician GroupComment on above:Performed By: #### CMVIGG, CMVIGM #### [facility] , #### CMP, CBC, MONOTEST #### [place] [address] USAMCV (RBC) [Entitic vol]89.9 kMInlwux00.5-101The [facility] Physician GroupComment on above:Performed By: #### CMVIGG, CMVIGM #### [facility] , #### CMP, CBC, MONOTEST #### [place] [address] USAMean Corpuscular HGB Conc34.5 g/kANauzta92.5-35.6The [facility] Physician GroupComment on above:Performed By: #### CMVIGG, CMVIGM #### [facility] , #### CMP, CBC, MONOTEST #### [place] [address] USAMonocytes (Bld) [#/Vol]0.6 10*3/uLNormal0.0-0.8The [facility] Physician GroupComment on above:Performed By: #### CMVIGG, CMVIGM #### [facility] , #### CMP, CBC, MONOTEST #### [place] [address] USAMonocytes/100 WBC (Bld)9.9 %Normal.The [facility] Physician GroupComment on above:Performed By: #### CMVIGG, CMVIGM #### [facility] , #### CMP, CBC, MONOTEST #### [place] [address] USANeutrophils (Bld) [#/Vol]2.7 10*3/uLNormal1.8-7.7The [facility] Physician GroupComment on above:Performed By: #### CMVIGG, CMVIGM #### [facility] , #### CMP, CBC, MONOTEST #### [place] [address] USANeutrophils/100 WBC (Bld)45.7 %Normal.The [facility] Physician GroupComment on above:Performed By: #### CMVIGG, CMVIGM #### [facility] , #### CMP, CBC, MONOTEST #### [facility] [address] [place] [address] USANRBC%0.0 /100{WBC}Normal0-0.5The [facility] Comment on above:Performed By: #### CMVIGG, CMVIGM #### [facility] , #### CMP, CBC, MONOTEST #### [facility] [address] [place] [address] USAPlatelet mean volume (Bld) [Entitic vol]8.8 fLNormal 6.6-10.1The [facility] Physician GroupComment on above:Performed By: #### CMVIGG, CMVIGM #### [facility] , #### CMP, CBC, MONOTEST #### [place] [address] USAPlatelets (Bld) [#/Vol]220 10*3/jUSafjhv842-585Smk [facility] Physician GroupComment on above:Performed By: #### CMVIGG, CMVIGM #### [facility] , #### CMP, CBC, MONOTEST #### [facility] [address] [place] [address] USARBC (Bld) [#/Vol]4.77 10*6/uLNormal3.90-5.60The [facility] Physician GroupComment on above:Performed By: #### CMVIGG, CMVIGM #### [facility] , #### CMP, CBC, MONOTEST #### [facility] [address] [place] [address] USAWBC (Bld) [#/Vol]5.9 10*3/uLNormal4.1-10.5The [facility] Physician GroupComment on above:Performed By: #### CMVIGG, CMVIGM #### [facility] , #### CMP, CBC, MONOTEST #### [facility] [address] [place] [address] USAComprehensive Metabolic Panelon 76-43-5886Uuiqsqs [Mass/Vol]4.7 g/dLNormal3.5-5.7The [facility] Physician GroupComment on above: Performed By: #### CMVIGG, CMVIGM #### [facility] , #### CMP, CBC, MONOTEST #### [place] [address] USAAlbumin/Globulin [Mass ratio]2.0 {ratio}NormalThe [facility] Physician GroupComment on above:Performed By: #### CMVIGG, CMVIGM #### [facility] , #### CMP, CBC, MONOTEST #### [place] [address] USAALP [Catalytic activity/Vol]59 U/WRlalwz44-660Wtt [facility] Physician GroupComment on above:Result Comment: PERFORMED BY: [place] [address] PATHOLOGIST DELICATESSEN MANAGER DANIEL KNOTT M.D.Performed By: #### CMVIGG, CMVIGM #### [facility] , #### CMP, CBC, MONOTEST #### [place] [address] USAALT [Catalytic activity/Vol]41 U/LNormal7-52The [facility] Physician GroupComment on above:Performed By: #### CMVIGG, CMVIGM #### [facility] , #### CMP, CBC, MONOTEST #### [place] [address] USAAnion gap [Moles/Vol]8.9 mmol/LNormal6.0-15.0The [facility] Physician GroupComment on above:Performed By: #### CMVIGG, CMVIGM #### [facility] , #### CMP, CBC, MONOTEST #### [place] [address] USAAST [Catalytic activity/Vol]24 U/KPqltfo97-51Wzt [facility] Physician GroupComment on above:Performed By: #### CMVIGG, CMVIGM #### [facility] , #### CMP, CBC, MONOTEST #### [place] [address] USABilirubin [Mass/Vol]0.8 mg/dLNormal0.3-1.0The [facility] Physician GroupComment on above:Performed By: #### CMVIGG, CMVIGM #### [facility] , #### CMP, CBC, MONOTEST #### [facility] [address] [place] [address] USACalcium [Mass/Vol]9.5 mg/dLNormal8.6-10.3The [facility] Physician GroupComment on above:Performed By: #### CMVIGG, CMVIGM #### [facility] , #### CMP, CBC, MONOTEST #### [facility] [address] [place] [address] USAChloride [Moles/Vol]105 mmol/PAqxkqb77-267Isv [facility] Physician GroupComment on above:Performed By: #### CMVIGG, CMVIGM #### [facility] , #### CMP, CBC, MONOTEST #### [place] [address] USACO2 [Moles/Vol]31.4 mmol/LHigh21.0-31.0The [facility] Physician GroupComment on above:Performed By: #### CMVIGG, CMVIGM #### [facility] , #### CMP, CBC, MONOTEST #### [facility] [address] [place] [address] USACreatinine [Mass/Vol]0.84 mg/dLNormal0.70-1.30The [facility] Physician GroupComment on above:Performed By: #### CMVIGG, CMVIGM #### [facility] , #### CMP, CBC, MONOTEST #### [place] [address] USAGFR/1.73 sq M.predicted MDRD (S/P/Bld) [Vol rate/Area] mL/min/{1.73_m2}NormalThe [facility] Physician GroupComment on above:Performed By: #### CMVIGG, CMVIGM #### [facility] , #### CMP, CBC, MONOTEST #### [place] [address] USAGlobulin (S) [Mass/Vol]2.4 g/dLNormalThe [facility] Physician GroupComment on above:Performed By: #### CMVIGG, CMVIGM #### [facility] , #### CMP, CBC, MONOTEST #### [place] [address] USAGlucose [Mass/Vol]79 mg/wEXbqnhi12-707Ulb [facility] Physician GroupComment on above:Result Comment: Random Glucose Reference Range is dependent on time and content of last meal. Glucose of more than 200 mg/dL in a nonstressed, ambulatory subject supports the diagnosis of Diabetes Mellitus. ADA recommended reference rangePerformed By: #### CMVIGG, CMVIGM #### [facility] , #### CMP, CBC, MONOTEST #### [place] [address] USAPotassium [Moles/Vol]4.3 mmol/LNormal3.5-5.1The [facility] Physician GroupComment on above:Performed By: #### CMVIGG, CMVIGM #### [facility] , #### CMP, CBC, MONOTEST #### [facility] [address] [place] [address] USAProtein [Mass/Vol]7.1 g/dLNormal6.4-8.9The [facility] Physician GroupComment on above:Performed By: #### CMVIGG, CMVIGM #### [facility] , #### CMP, CBC, MONOTEST #### [facility] [address] [place] [address] USASodium [Moles/Vol]141 mmol/GEporhr450-409Cqd [facility] Physician GroupComment on above:Performed By: #### CMVIGG, CMVIGM #### [facility] , #### CMP, CBC, MONOTEST #### [facility] [address] [place] [address] USAUrea nitrogen [Mass/Vol]14 mg/dLNormal7-25The [facility] Physician GroupComment on above:Performed By: #### CMVIGG, CMVIGM #### [facility] , #### CMP, CBC, MONOTEST #### [facility] [address] [place] [address] USACreatinine [Mass/volume] in Serum or PlasmaOrdered By: Campos Lee on 10-45-5971Qruuwchlmu [Mass/Vol]Creatinine [Mass/volume] in Serum or Plasma0.70-1.30[facility] LimaEosinophils Auto (Bld) [#/Vol]Ordered By: Campos Lee on 17-28-9595Tulfmjoecqr (Bld) [#/Vol]Automated eosinophil countHigh0.0-0.45[facility] LimaEosinophils/100 WBC Auto (Bld)Ordered By: Campos Lee on 60-54-0082Eixwpyvaaup/100 WBC (Bld) Automated eosinophil %.[facility] LimaErythrocyte distribution width Auto (RBC) [Ratio]Ordered By: Campos Lee on 65-22-3192Pbgwpnsurqz distribution width (RBC) [Ratio]Erythrocyte distribution width [Ratio] by Automated count12.0-14.8[facility] LimaGlobulin Calc (S) [Mass/Vol]Ordered By: Campos Lee on 39-82-9237Opzkqxlq (S) [Mass/Vol]Serum globulin measurement by calculation (mass/volume)[facility] LimaGlucose [Mass/volume] in Serum or PlasmaOrdered By: Campos Lee on 10-38-7200Ukkhzef [Mass/Vol]Glucose [Mass/volume] in Serum or Lrfqhe76-231 [facility] LimaComment on above:ADA recommended reference rangeRandom Glucose Reference Range is dependent on time and content of last meal. Glucose of more than 200 mg/dL in a nonstressed, ambulatory subject supports the diagnosisof Diabetes Mellitus.Hematocrit Auto (Bld) [Volume fraction]Ordered By: Campos Lee on 36-17-3882Yvvosmojee (Bld) [Volume fraction] Hematocrit [Volume Fraction] of Blood by Automated count38.8-50.0[facility] LimaHemoglobin [Mass/volume] in BloodOrdered By: Campos Lee on 60-43-7895Xtslyzduob (Bld) [Mass/Vol]Hemoglobin [Mass/volume] in Blood 13.0-17.0[facility] LimaLeukocytes [#/volume] corrected for nucleated erythrocytes in Blood by Automated counOrdered By: Campos Lee on 01-35-6892EBB corrected for nucl RBC Auto (Bld) [#/Vol]Leukocytes [#/volume] corrected for nucleated erythrocytes in Blood by Automated coun4.1-10.5FFisher-Titus Medical CenterLymphocytes Auto (Bld) [#/Vol]Ordered By: Campos Lee on 08-45-8320Irlwyitpean (Bld) [#/Vol]Lymphocytes [#/volume] in Blood by Automated count1.00-4.8[facility] LimaLymphocytes/100 WBC Auto (Bld) Ordered By: Campos Lee on 47-69-6702Qerrzeiupty/100 WBC (Bld)Lymphocytes/100 leukocytes in Blood by Automated count.[facility] HospitalH Auto (RBC) [Entitic mass]Ordered By: Campos Lee on 81-67-2711KWM (RBC) [Entitic mass]MCH [Entitic mass] by Automated count27.5-35.2FCleveland Clinic Marymount HospitalHC Auto (RBC) [Mass/Vol]Ordered By: Campos Lee on 31-92-7273KGWZ (RBC) [Mass/Vol]MCHC [Mass/volume] by Automated count32.5-35.6FCleveland Clinic Marymount HospitalV Auto (RBC) [Entitic vol]Ordered By: Campos Lee on 07-11-2024 MCV (RBC) [Entitic vol]MCV [Entitic volume] by Automated count83.5-101[facility] LimaMonocytes Auto (Bld) [#/Vol]Ordered By: Campos Lee on 88-17-5300Nngrtwuau (Bld) [#/Vol]Automated blood monocyte count0.0-0.8[facility] LimaMonocytes/100 WBC Auto (Bld)Ordered By: Campos Lee on 34-98-0942Wgxjaugay/100 WBC (Bld)Automated monocyte %.[facility] Hospital LimaMonoteston 60-67-8663YgbbnvjeWhojppjmGdbjvnZheqmhvhOjv [facility] Physician GroupComment on above:Result Comment: PERFORMED BY: [facility] [address] [place] [address] PATHOLOGIST DELICATESSEN MANAGER DANIEL KNOTT M.D.Performed By: #### CMVIGG, CMVIGM #### [facility] , #### CMP, CBC, MONOTEST #### [facility] [address] [place] [address] USANeutrophils Auto (Bld) [#/Vol]Ordered By: Campos Lee on 73-15-0859Qjpysfgbqpw (Bld) [#/Vol]Neutrophils [#/volume] in Blood by Automated count1.8-7.7FFisher-Titus Medical CenterNeutrophils/100 WBC Auto (Bld) Ordered By: Campos Lee on 93-58-9779Gaqldetvkif/100 WBC (Bld)Automated neutrophil %.[facility] LimaNo Panel InformationOrdered By: Campos Lee on 52-26-4515Maqpwpcxh GFR (CKD-EPI)> 60.0 mL/MinScci Hospital LimaPharmacy Creatinine Clearance (ChemN/AFFisher-Titus Medical CenterNucleated erythrocytes [Presence] in Blood by Automated countOrdered By: Campos Lee on 59-47-4491Rtopjflom RBC Auto Ql (Bld)Nucleated erythrocytes [Presence] in Blood by Automated count0-0.5FFisher-Titus Medical Center Platelet mean volume Auto (Bld) [Entitic vol]Ordered By: Campos Lee on 56-50-7603Qsrwhydg mean volume (Bld) [Entitic vol]Platelet mean volume [Entitic volume] in Blood by Automated count6.6-10.1FFisher-Titus Medical Center Platelets Auto (Bld) [#/Vol]Ordered By: Campos Lee on 48-10-5684Gjrolcalh (Bld) [#/Vol]Platelets [#/volume] in Blood by Automated qjhby068-705BzqkgsvpxScci Hospital LimaPotassium [Moles/volume] in Serum or PlasmaOrdered By: Campos Lee on 91-10-7608Clrnsomws [Moles/Vol]Potassium [Moles/volume] in Serum or Plasma 3.5-5.1FFisher-Titus Medical CenterProtein [Mass/volume] in Serum or Plasma Ordered By: Campos Lee on 34-36-5701Wowmgme [Mass/Vol]Protein [Mass/volume] in Serum or Plasma6.4-8.9[facility] LimaRBC Auto (Bld) [#/Vol] Ordered By: Campos Lee on 83-54-8247IHE (Bld) [#/Vol]Erythrocytes [#/volume] in Blood by Automated count3.90-5.60T[facility]carawas Hospitalerum cytomegalovirus IgG antibody assay by immunoassay (units/volume)Ordered By: Campos Lee on 75-48-8773VKV IgG IA QnSerum cytomegalovirus IgG antibody assay by immunoassay (units/volume)0.00-0.59[facility] LimaComment on above:Negative <0.60 Equivocal 0.60 - 0.69 Positive >0.69Serum cytomegalovirus IgM antibody assay by immunoassay (units/volume)Ordered By: Campos Lee on 62-59-2398IHT IgM IA QnSerum cytomegalovirus IgM antibody assay by immunoassay (units/volume)0.0-29.9[facility] LimaComment on above:Negative <30.0 Equivocal 30.0 - 34.9 Positive >34.9A positive result is generally indicative of acuteinfection, reactivation or persistent IgM production.Performed at: [address] [id number] Director: Francis Kearns PhD, Phone: [phone] heterophile antibody detection by latex agglutinationOrdered By: Campos Lee on 07-11-2024 Heterophile Ab LA Ql (S)Serum heterophile antibody detection by latex agglutinationNegativeTuscarawas Hospitalerum or plasma albumin/globulin mass ratioOrdered By: Campos Lee on 28-18-5900Jwkomni/Globulin [Mass ratio]Serum or plasma albumin/globulin mass ratioTuscarawas Hospitalerum or plasma anion gap determinationOrdered By: Campos Lee on 19-77-9594Fdbzf gap [Moles/Vol]Serum or plasma anion gap determination6.0-15.0 [facility] Hospitalodium [Moles/volume] in Serum or PlasmaOrdered By: Campos Lee on 20-00-7021Wufvpx [Moles/Vol]Sodium [Moles/volume] in Serum or Mroxdw751-822ZcequykviScci Hospital LimaUrea nitrogen [Mass/volume] in Serum or PlasmaOrdered By: Campos Lee on 75-24-1533Sjil nitrogen [Mass/Vol]Urea nitrogen [Mass/volume] in Serum or Plasma7-[facility] WBC Auto (Bld) [#/Vol]Ordered By: Campos Lee on 06-09-2313SOM (Bld) [#/Vol] Leukocytes [#/volume] in Blood by Automated count4.1-10.5FFisher-Titus Medical CenterBasophils Auto (Bld) [#/Vol]Ordered By: Campos eLe on 07-04-2024 Basophils (Bld) [#/Vol]Automated basophil count0.0-0.2FFisher-Titus Medical CenterBasophils/100 WBC Auto (Bld)Ordered By: Campos Lee on 07-04-2024 Basophils/100 WBC (Bld)Automated basophil %.[facility] Complete Blood Count Auto Diffon 26-51-3808Miswgdvnn (Bld) [#/Vol]0.1 10*3/uL Normal0.0-0.2The [facility] Physician GroupComment on above:Result Comment: PERFORMED BY: [facility] [address] [place] [address] PATHOLOGIST DELICATESSEN MANAGER DANIEL KNOTT M.D.Performed By: #### EBV VCAIGG, EBV VCAIGM ####[facility] ,#### CBC ####[address] [address] USABasophils/100 WBC (Bld)0.8 %Normal.The [facility] Physician GroupComment on above:Performed By: #### EBV VCAIGG, EBV VCAIGM ####[facility] ,#### CBC ####[place] [address] USAEosinophils (Bld) [#/Vol]0.5 10*3/uLHigh0.0-0.45The [facility] Physician GroupComment on above:Performed By: #### EBV VCAIGG, EBV VCAIGM ####[facility] ,#### CBC ####[place] [address] USAEosinophils/100 WBC (Bld)6.8 %Normal.The [facility] Physician GroupComment on above:Performed By: #### EBV VCAIGG, EBV VCAIGM ####[facility] ,#### CBC ####[place] [address] USAErythrocyte distribution width (RBC) [Ratio] 13.3 %Ikqxpb99.0-14.8The [facility] Physician GroupComment on above:Performed By: #### EBV VCAIGG, EBV VCAIGM ####[facility] ,#### CBC ####[place] [address] USAHematocrit (Bld) [Volume fraction]44.1 %Xndvwh84.8-50.0The [facility] Physician GroupComment on above:Performed By: #### EBV VCAIGG, EBV VCAIGM ####[facility] ,#### CBC ####[address] Hemoglobin (Bld) [Mass/Vol]14.9 g/oSAweqyf73.0-17.0The [facility] Physician Group Comment on above:Performed By: #### EBV VCAIGG, EBV VCAIGM ####[facility] ,#### CBC ####[place] [address] USALymphocytes (Bld) [#/Vol]2.4 10*3/uLNormal1.00-4.8 The [facility] Physician GroupComment on above:Performed By: #### EBV VCAIGG, EBV VCAIGM ####[facility] ,#### CBC ####[place] [address] USALymphocytes/100 WBC (Bld)34.7 %Normal.The [facility] Physician GroupComment on above:Performed By: #### EBV VCAIGG, EBV VCAIGM ####[facility] ,#### CBC ####[place] [address] [facility] CITYH (RBC) [Entitic mass]30.9 ieSnrwrx97.5-35.2 The [facility] Physician GroupComment on above:Performed By: #### EBV VCAIGG, EBV VCAIGM ####[facility] ,#### CBC ####[place] [address] [facility] OK[facility] CITYV (RBC) [Entitic vol]91.3 qUZzcgul19.5-101 The [facility] Physician GroupComment on above:Performed By: #### EBV VCAIGG, EBV VCAIGM ####[facility] ,#### CBC ####[place] [address] USAMean Corpuscular HGB Conc33.9 g/dLNormal 32.5-35.6The [facility] Physician GroupComment on above:Performed By: #### EBV VCAIGG, EBV VCAIGM ####[facility] ,#### CBC ####[place] [address] USAMonocytes (Bld) [#/Vol]0.8 10*3/uLNormal0.0-0.8The [facility] Physician GroupComment on above:Performed By: #### EBV VCAIGG, EBV VCAIGM ####[facility] ,#### CBC ####[place] [address] USAMonocytes/100 WBC (Bld)12.0 %Normal.The [facility] Physician GroupComment on above:Performed By: #### EBV VCAIGG, EBV VCAIGM ####[facility] ,#### CBC ####[place] [address] USANeutrophils (Bld) [#/Vol]3.1 10*3/uLNormal1.8-7.7The [facility] Physician GroupComment on above: Performed By: #### EBV VCAIGG, EBV VCAIGM ####[facility] ,#### CBC ####[place] [address] [place] Neutrophils/100 WBC (Bld)45.7 %Normal.The [facility] Physician GroupComment on above:Performed By: #### EBV VCAIGG, EBV VCAIGM ####[facility] ,#### CBC ####[place] [address] [place] NRBC%0.2 /100{WBC}Normal0-0.5The [facility] Physician GroupComment on above: Performed By: #### EBV VCAIGG, EBV VCAIGM ####[facility] ,#### CBC ####[address] [place] [address] USAPlatelet mean volume (Bld) [Entitic vol]8.7 fLNormal6.6-10.1The [facility] Physician GroupComment on above:Performed By: #### EBV VCAIGG, EBV VCAIGM ####[facility] ,#### CBC ####[place] [address] USAPlatelets (Bld) [#/Vol]236 10*3/qPNszltl491-674Iap [facility] Physician GroupComment on above:Performed By: #### EBV VCAIGG, EBV VCAIGM ####[facility] ,#### CBC ####[place] [address] USARBC (Bld) [#/Vol]4.83 10*6/uLNormal3.90-5.60 The [facility] Physician GroupComment on above:Performed By: #### EBV VCAIGG, EBV VCAIGM ####[facility] ,#### CBC ####[place] [address] USAWBC (Bld) [#/Vol]6.8 10*3/uLNormal4.1-10.5The [facility] Physician GroupComment on above:Performed By: #### EBV VCAIGG, EBV VCAIGM ####[facility] ,#### CBC ####[place] [address] USAEBV Ab VCA, IgGon 77-18-4173DKB Ab VCA, IgG <18.0Hcncod3.0-17.9The [facility] Physician GroupComment on above:Result Comment: Negative <18.0 Equivocal 18.0 - 21.9 Positive >21.9Performed By: #### EBV VCAIGG, EBV VCAIGM ####[facility] ,#### CBC ####[place] [address] [place] [id number] USAEBV Ab VCA, IgMon 08-75-7405QGB Ab VCA, IgM77.1High 0.0-35.9The [facility] Physician GroupComment on above:Result Comment: Negative <36.0 Equivocal 36.0 - 43.9 Positive >43.9 Performed at: - [facility] [id number] Pneumatic Drum Sander: Francis Kearns PhD, Phone: [phone] PERFORMED BY: [facility] [address] [place] [address] PATHOLOGIST DELICATESSEN MANAGER DANIEL KNOTT M.D.Performed By: #### EBV VCAIGG, EBV VCAIGM ####[facility] ,#### CBC ####[place] [address] [place] [address] USAEosinophils Auto (Bld) [#/Vol]Ordered By: Campos Lee on 24-31-2331Smpiyontjmy (Bld) [#/Vol]Automated eosinophil countHigh0.0-0.45 [facility] LimaEosinophils/100 WBC Auto (Bld)Ordered By: Campos Lee on 43-89-2243Nrqtllouwtm/100 WBC (Bld)Automated eosinophil %.[facility] LimaErythrocyte distribution width Auto (RBC) [Ratio]Ordered By: Campos Lee on 34-34-4010Sbgdabnzmfi distribution width (RBC) [Ratio] Erythrocyte distribution width [Ratio] by Automated count12.0-14.8[facility] LimaHematocrit Auto (Bld) [Volume fraction]Ordered By: Campos Lee on 09-49-8953Nkonzdnnfj (Bld) [Volume fraction]Hematocrit [Volume Fraction] of Blood by Automated count38.8-50.0[facility] LimaHemoglobin [Mass/volume] in BloodOrdered By: Campos Lee on 08-76-5761Icpghtogeb (Bld) [Mass/Vol]Hemoglobin [Mass/volume] in Blood13.0-17.0[facility] LimaLeukocytes [#/volume] corrected for nucleated erythrocytes in Blood by Automated counOrdered By: Campos Lee on 35-44-5060TIP corrected for nucl RBC Auto (Bld) [#/Vol]Leukocytes [#/volume] corrected for nucleated erythrocytes in Blood by Automated coun4.1-10.5FFisher-Titus Medical CenterLymphocytes Auto (Bld) [#/Vol]Ordered By: Campos Lee on 41-52-1543Bnfnnpfxfpg (Bld) [#/Vol] Lymphocytes [#/volume] in Blood by Automated count1.00-4.8[facility] LimaLymphocytes/100 WBC Auto (Bld)Ordered By: Campos Lee on 07-04-2024 Lymphocytes/100 WBC (Bld)Lymphocytes/100 leukocytes in Blood by Automated count. [facility] HospitalH Auto (RBC) [Entitic mass]Ordered By: Campos Lee on 03-88-8241QOX (RBC) [Entitic mass]MCH [Entitic mass] by Automated count 27.5-35.2FFisher-Titus Medical CenterMCHC Auto (RBC) [Mass/Vol]Ordered By: Campos Lee on 83-73-9505GOFD (RBC) [Mass/Vol]MCHC [Mass/volume] by Automated count32.5-35.6FFisher-Titus Medical CenterMCV Auto (RBC) [Entitic vol] Ordered By: Campos Lee on 26-17-1586QXF (RBC) [Entitic vol]MCV [Entitic volume] by Automated count83.5-101[facility] LimaMonocytes Auto (Bld) [#/Vol]Ordered By: Campos Lee on 21-97-7822Wqcriubdm (Bld) [#/Vol]Automated blood monocyte count0.0-0.8[facility] LimaMonocytes/100 WBC Auto (Bld)Ordered By: Campos Lee on 68-68-8833Zjamdmcer/100 WBC (Bld)Automated monocyte %.[facility] LimaNeutrophils Auto (Bld) [#/Vol] Ordered By: Campos Lee on 47-26-3385Hsykdfrkdfi (Bld) [#/Vol]Neutrophils [#/volume] in Blood by Automated count1.8-7.7FFisher-Titus Medical Center Neutrophils/100 WBC Auto (Bld)Ordered By: Campos Lee on 07-04-2024 Neutrophils/100 WBC (Bld)Automated neutrophil %.[facility] LimaNucleated erythrocytes [Presence] in Blood by Automated countOrdered By: Campos Lee on 52-07-9319Yqmlyoswy RBC Auto Ql (Bld)Nucleated erythrocytes [Presence] in Blood by Automated count0-0.5FFisher-Titus Medical Center Platelet mean volume Auto (Bld) [Entitic vol]Ordered By: Campos Lee on 73-69-9016Oetnuqoc mean volume (Bld) [Entitic vol]Platelet mean volume [Entitic volume] in Blood by Automated count6.6-10.1FFisher-Titus Medical Center Platelets Auto (Bld) [#/Vol]Ordered By: Campos Lee on 48-41-8000Gwevpewlq (Bld) [#/Vol]Platelets [#/volume] in Blood by Automated wajrd619-861MpklkymxbScci Hospital LimaRBC Auto (Bld) [#/Vol]Ordered By: Campos Lee on 01-93-9566XAE (Bld) [#/Vol]Erythrocytes [#/volume] in Blood by Automated count3.90-5.60 [facility] Hospitalerum Jolly Weiner virus capsid IgG antibody assay (units/volume)Ordered By: Campos Lee on 08-33-7790HSI capsid IgG Qn (S) Jolly Weiner virus capsid IgG Ab [Units/volume] in SerumHigh0.0-35.9[facility] LimaComment on above:Negative <18.0 Equivocal 18.0 - 21.9 Positive >21.9Negative <36.0 Equivocal 36.0 - 43.9 Positive >43.9Performed at: [facility] [id number] Director: Francis Kearns PhD, Phone: [phone] Auto (Bld) [#/Vol]Ordered By: Campos Lee on 88-34-3331QAM (Bld) [#/Vol]Leukocytes [#/volume] in Blood by Automated count 4.1-10.5FFisher-Titus Medical CenterAlanine aminotransferase [Enzymatic activity/volume] in Serum or PlasmaOrdered By: Campos Lee on 78-06-7474OIA [Catalytic activity/Vol]Alanine aminotransferase [Enzymatic activity/volume] in Serum or PlasmaHigh7-52[facility] LimaAlbumin [Mass/volume] in Serum or Plasma by Bromocresol green (BCG) dye binding methoOrdered By: Campos Lee on 05-48-0708Zbgdemh BCG dye [Mass/Vol]Albumin [Mass/volume] in Serum or Plasma by Bromocresol green (BCG) dye binding metho3.5-5.7FFisher-Titus Medical CenterAlkaline phosphatase [Enzymatic activity/volume] in Serum or PlasmaOrdered By: Campos Lee on [id number] [Catalytic activity/Vol]Alkaline phosphatase [Enzymatic activity/volume] in Serum or Pyvjay73-487LmnngbshwScci Hospital LimaAmylaseon 00-58-2047Ndgkbwq [Catalytic activity/Vol]57 U/TQundyn07-489Rcq [facility] Physician GroupComment on above:Performed By: #### JACKIE, TSH3, ESR, LIPASE, DIFF CBC, CMP, [id number], LIPID ####[facility] [id number] [place] [address] USAAmylase [Enzymatic activity/volume] in Serum or PlasmaOrdered By: Campos Lee on 66-68-8000Gieqfye [Catalytic activity/Vol]Amylase [Enzymatic activity/volume] in Serum or Plasma 29-103[facility] LimaAnisocytosis LM Ql (Bld)Ordered By: Campos Lee on 46-80-7910Rzzzvqvchkdp Ql (Bld)Anisocytosis [Presence] in Blood by Light microscopyScci Hospital LimaAspartate aminotransferase [Enzymatic activity/volume] in Serum or PlasmaOrdered By: Campos Lee on 05-84-0007IVV [Catalytic activity/Vol]Aspartate aminotransferase [Enzymatic activity/volume] in Serum or QvizuaSpee92-97IjmukdwpoScci Hospital Lima Basophils Auto (Bld) [#/Vol]Ordered By: Campos Lee on 69-00-2222Upkiolnqc (Bld) [#/Vol]Automated basophil countScci Hospital LimaBasophils/100 WBC Auto (Bld)Ordered By: Campos Lee on 74-58-1466Wabsfguyg/100 WBC (Bld) Automated basophil %[facility] LimaBasophils/100 WBC Manual cnt (Bld)Ordered By: Campos Lee on 70-18-5206Ionwnmsgi/100 WBC (Bld) Basophils/100 leukocytes in Blood by Manual count0-2FFisher-Titus Medical CenterBilirubin.total [Mass/volume] in Serum or PlasmaOrdered By: Campos Lee on 54-03-3411Kxvnanavd [Mass/Vol]Bilirubin.total [Mass/volume] in Serum or Plasma 0.3-1.0[facility] LimaCalcium [Mass/volume] in Serum or Plasma Ordered By: Campos Lee on 51-66-5373Omlhobj [Mass/Vol]Calcium [Mass/volume] in Serum or Plasma8.6-10.3FFisher-Titus Medical CenterCarbon dioxide, total [Moles/volume] in Serum or PlasmaOrdered By: Campos Lee on 56-65-9370AG9 [Moles/Vol]Carbon dioxide, total [Moles/volume] in Serum or Mvcsgz39.0-31.0 [facility] LimaChloride [Moles/volume] in Serum or Plasma Ordered By: Campos Lee on 37-47-0061Rlsvaoik [Moles/Vol]Chloride [Moles/volume] in Serum or Yhopvo21-383ZnywrhiwuScci Hospital LimaCholesterol [Mass/volume] in Serum or PlasmaOrdered By: Campos Lee on 54-54-3040Jgghxmukugx [Mass/Vol]Cholesterol [Mass/volume] in Serum or Hpqzzq675-861KmlxnappyScci Hospital LimaComment on above:Chol less than 200 mg/dl low riskChol 201-239 mg/dl borderline riskChol 240 mg/dl and greater high riskCholesterol in HDL [Mass/volume] in Serum or PlasmaOrdered By: Campos Lee on 88-78-4554Ykkmxkbsjfm in HDL [Mass/Vol]Serum or plasma high density lipoprotein (HDL) cholesterol nferxkldord87-26BceajkscwScci Hospital LimaComment on above:HDL CHOL ATP- III CLASSIFICATION Cardiovascular RiskHDL > or equal to 60 mg/dL LOWHDL < 40 mg/dL HIGHCholesterol in LDL Calc [Mass/Vol]Ordered By: Campos Lee on 06-30-2024 Cholesterol in LDL [Mass/Vol]Cholesterol in LDL [Mass/volume] in Serum or Plasma by calculationHigh0-100[facility] LimaComment on above:LDL ATP III CLASSIFICATIONLDL less than 100 mg/dL OptimalLDL 100-129 mg/dL Near or above ljjlcptFPT802-891 mg/dL Borderline highLDL 160-189 mg/dL HighLDL greater than 189 mg/dL Very highCholesterol in VLDL Calc [Mass/Vol]Ordered By: Campos Lee on 02-34-0127Auiimnoekyb in VLDL [Mass/Vol]Cholesterol in VLDL [Mass/volume] in Serum or Plasma by calculationScci Hospital Lima Comprehensive Metabolic Panelon 01-15-0846Eakvcvg [Mass/Vol]4.4 g/dLNormal 3.5-5.7The [facility] Physician GroupComment on above:Performed By: #### JACKIE, TSH3, ESR, LIPASE, DIFF CBC, CMP, [id number], LIPID ####[place] [address] [place] [id number] USAAlbumin/Globulin [Mass ratio]1.8 {ratio}NormalThe Lancaster Rehabilitation HospitalComment on above:Performed By: #### JACKIE, TSH3, ESR, LIPASE, DIFF CBC, CMP, [id number], LIPID ####[address] [place] [address] USAALP [Catalytic activity/Vol]60 U/MZhnukt60-385Zdz [facility] Physician [facility] And InfantsComment on above:Performed By: #### JACKIE, TSH3, ESR, LIPASE, DIFF CBC, CMP, [id number], LIPID ####[facility] [place] [address] USAALT [Catalytic activity/Vol]88 U/LHigh7-52The [facility] Rehabilitation HospitalComment on above:Performed By: #### JACKIE, TSH3, ESR, LIPASE, DIFF CBC, CMP, [id number], LIPID ####[address] [place] [address] USAAnion gap [Moles/Vol]6.8 mmol/LNormal 6.0-15.0The [facility] Physician GroupComment on above:Performed By: #### JACKIE, TSH3, ESR, LIPASE, DIFF CBC, CMP, [id number], LIPID ####[place] [address] USAAST [Catalytic activity/Vol]51 U/L Ctlo02-75Cym [facility] Physician GroupComment on above:Performed By: #### JACKIE, TSH3, ESR, LIPASE, DIFF CBC, CMP, [id number], LIPID ####[place] [address] USABilirubin [Mass/Vol]0.5 mg/dLNormal 0.3-1.0The [facility] Physician GroupComment on above:Performed By: #### JACKIE, TSH3, ESR, LIPASE, DIFF CBC, CMP, [id number], LIPID ####[place] [address] USACalcium [Mass/Vol]9.6 mg/dLNormal 8.6-10.3The [facility] Physician GroupComment on above:Performed By: #### JACKIE, TSH3, ESR, LIPASE, DIFF CBC, CMP, [id number], LIPID ####[place] [address] USAChloride [Moles/Vol]106 mmol/LNormal 98-107The [facility] Physician GroupComment on above:Performed By: #### JACKIE, TSH3, ESR, LIPASE, DIFF CBC, CMP, [id number], LIPID ####[place] [address] USACO2 [Moles/Vol]30.5 mmol/LNormal 21.0-31.0The [facility] Physician GroupComment on above:Performed By: #### JACKIE, TSH3, ESR, LIPASE, DIFF CBC, CMP, [id number], LIPID ####[place] [address] USACreatinine [Mass/Vol]0.82 mg/dLNormal 0.70-1.30The [facility] Physician GroupComment on above:Performed By: #### JACKIE, TSH3, ESR, LIPASE, DIFF CBC, CMP, [id number], LIPID ####[address] [address] USAGFR/1.73 sq M.predicted MDRD (S/P/Bld) [Vol rate/Area]mL/min/{1.73_m2}NormalThe [facility] Physician Group Comment on above:Performed By: #### JACKIE, TSH3, ESR, LIPASE, DIFF CBC, CMP, [id number], LIPID ####[address] [address] USAGlobulin (S) [Mass/Vol]2.4 g/dLNormalThe [facility] Physician Group Comment on above:Performed By: #### JACKIE, TSH3, ESR, LIPASE, DIFF CBC, CMP, [id number], LIPID ####[place] [id number] USAGlucose [Mass/Vol]83 mg/fQLxybui10-641Iqk [facility] Physician Group Comment on above:Result Comment: Random Glucose Reference Range is dependent on time and content of last meal. Glucose of more than 200 mg/dL in a nonstressed, ambulatory subject supports the diagnosis of Diabetes Mellitus. ADA recommended reference rangePerformed By: #### JACKIE, TSH3, ESR, LIPASE, DIFF CBC, CMP, [id number], LIPID ####[place] [id number] USAPotassium [Moles/Vol]4.3 mmol/LNormal3.5-5.1The [facility] Physician GroupComment on above:Performed By: #### JACKIE, TSH3, ESR, LIPASE, DIFF CBC, CMP, [id number], LIPID ####[place] [id number] USAProtein [Mass/Vol]6.8 g/dLNormal6.4-8.9The [facility] Physician GroupComment on above:Performed By: #### JACKIE, TSH3, ESR, LIPASE, DIFF CBC, CMP, [id number], LIPID ####[place] [id number] USASodium [Moles/Vol]139 mmol/OQeoizq378-317Ztl [facility] Physician GroupComment on above:Performed By: #### JACKIE, TSH3, ESR, LIPASE, DIFF CBC, CMP, [id number], LIPID ####[address] [address] USAUrea nitrogen [Mass/Vol]14 mg/dLNormal7-25The [facility] Physician GroupComment on above:Performed By: #### JACKIE, TSH3, ESR, LIPASE, DIFF CBC, CMP, [id number], LIPID ####[place] [id number] USACreatinine [Mass/volume] in Serum or Plasma Ordered By: Campos Lee on 55-06-2805Fnwhfgckeh [Mass/Vol]Creatinine [Mass/volume] in Serum or Plasma0.70-1.30[facility] LimaDiff and CBCon 25-48-9813Dodaruamoixe Ql (Bld)ModerateNormalThe [facility] Physician GroupComment on above:Performed By: #### JACKIE, TSH3, ESR, LIPASE, DIFF CBC, CMP, [id number], LIPID ####[address] [address] USABasophils/100 WBC (Bld)2 %Normal0-2The [facility] Physician GroupComment on above:Performed By: #### JACKIE, TSH3, ESR, LIPASE, DIFF CBC, CMP, [id number], LIPID ####[address] [address] [place] Eosinophils/100 WBC (Bld)9 %High1-3The [facility] Physician GroupComment on above:Performed By: #### JACKIE, TSH3, ESR, LIPASE, DIFF CBC, CMP, [id number], LIPID ####[place] [id number] [facility] Erythrocyte distribution width (RBC) [Ratio]13.1 %Fzheco83.0-14.8The [facility] Physician GroupComment on above:Performed By: #### JACKIE, TSH3, ESR, LIPASE, DIFF CBC, CMP, [id number], LIPID ####[address] [place] [address] USAHematocrit (Bld) [Volume fraction]44.2 %Normal 38.8-50.0The [facility] Physician GroupComment on above:Performed By: #### JACKIE, TSH3, ESR, LIPASE, DIFF CBC, CMP, [id number], LIPID ####[place] [address] USAHemoglobin (Bld) [Mass/Vol]15.2 g/dL Ajucft73.0-17.0The [facility] Physician GroupComment on above:Performed By: #### JACKIE, TSH3, ESR, LIPASE, DIFF CBC, CMP, [id number], LIPID ####[place] [address] USALymphocytes/100 WBC (Bld)39 % Qsdege06-42Xgt [facility] Physician GroupComment on above:Performed By: #### JACKIE, TSH3, ESR, LIPASE, DIFF CBC, CMP, [id number], LIPID ####[place] [id number] [facility]H (RBC) [Entitic mass]31.0 pg Kamgmv19.5-35.2The [facility] Physician GroupComment on above:Performed By: #### JACKIE, TSH3, ESR, LIPASE, DIFF CBC, CMP, [id number], LIPID ####[place] [address] [facility]V (RBC) [Entitic vol]90.5 fL Mvyefm00.5-101The [facility] Physician GroupComment on above:Performed By: #### JACKIE, TSH3, ESR, LIPASE, DIFF CBC, CMP, [id number], LIPID ####[place] [address] USAMean Corpuscular HGB Conc34.3 g/dCQyptgn88.5-35.6The [facility] Physician GroupComment on above:Performed By: #### JACKIE, TSH3, ESR, LIPASE, DIFF CBC, CMP, [id number], LIPID ####[place] [address] USAMicrocytosisModerate NormalThe [facility] Physician GroupComment on above:Performed By: #### JACKIE, TSH3, ESR, LIPASE, DIFF CBC, CMP, [id number], LIPID ####[place] [address] USAMonocytes/100 WBC (Bld)13 %High2-11The [facility] Physician GroupComment on above:Performed By: #### JACKIE, TSH3, ESR, LIPASE, DIFF CBC, CMP, [id number], LIPID ####[place] [address] USAMyelocytes1 %High0-0The [facility] Physician GroupComment on above:Performed By: #### JACKIE, TSH3, ESR, LIPASE, DIFF CBC, CMP, [id number], LIPID ####[place] [address] USAPlatelet EstimateNormalNormalNormWinter Haven Hospital Physician GroupComment on above:Performed By: #### JACKIE, TSH3, ESR, LIPASE, DIFF CBC, CMP, [id number], LIPID ####[place] [address] [place] Platelet mean volume (Bld) [Entitic vol]8.8 fLNormal6.6-10.1The [facility] Physician GroupComment on above:Performed By: #### JACKIE, TSH3, ESR, LIPASE, DIFF CBC, CMP, [id number], LIPID ####[place] [address] USAPlatelet MorphologyNormalNormalNormWinter Haven Hospital Physician GroupComment on above:Performed By: #### JACKIE, TSH3, ESR, LIPASE, DIFF CBC, CMP, [id number], LIPID ####[place] [address] USAPlatelets (Bld) [#/Vol]224 10*3/pGQiusda971-810Ufo [facility] Physician GroupComment on above:Performed By: #### JACKIE, TSH3, ESR, LIPASE, DIFF CBC, CMP, [id number], LIPID ####[place] [address] [place] [id number] USARBC (Bld) [#/Vol]4.89 10*6/uLNormal3.90-5.60 The [facility] Physician GroupComment on above:Performed By: #### JACKIE, TSH3, ESR, LIPASE, DIFF CBC, CMP, [id number], LIPID ####[place] [address] USARBC morphology finding Nom (Bld)NormalNormal NormalThe [facility] Physician GroupComment on above:Performed By: #### JACKIE, TSH3, ESR, LIPASE, DIFF CBC, CMP, [id number], LIPID ####[place] [address] USASegmented neutrophils/100 WBC (Bld)36 %Fll75-16Cyw [facility] Physician GroupComment on above:Performed By: #### JACKIE, TSH3, ESR, LIPASE, DIFF CBC, CMP, [id number], LIPID ####[place] [id number] USAWBC (Bld) [#/Vol]6.9 10*3/uLNormal 4.1-10.5The [facility] Physician GroupComment on above:Performed By: #### JACKIE, TSH3, ESR, LIPASE, DIFF CBC, CMP, [id number], LIPID ####[place] [id number] USAEosinophils Auto (Bld) [#/Vol]Ordered By: Campos Lee on 85-79-0057Thwdzkmepld (Bld) [#/Vol]Automated eosinophil count [facility] LimaEosinophils/100 WBC Auto (Bld)Ordered By: Campos Lee on 40-53-3078Eylhqnsloyp/100 WBC (Bld)Automated eosinophil %[facility] LimaEosinophils/100 WBC Manual cnt (Bld)Ordered By: Campos Lee on 78-31-2671Sokwjeqijbg/100 WBC (Bld)Eosinophils/100 leukocytes in Blood by Manual countHigh1-3FFisher-Titus Medical CenterErythrocyte Sedimentation Rateon 19-15-6440TJA (Bld) [Velocity]1 mm/hNormal0-14The [facility] Physician GroupComment on above:Result Comment: PERFORMED BY: [facility] [address] [place] [address] PATHOLOGIST DELICATESSEN MANAGER DANIEL KNOTT M.D.Performed By: #### JACKIE, TSH3, ESR, LIPASE, DIFF CBC, CMP, [id number], LIPID ####[facility] [place] [address] USAErythrocyte distribution width Auto (RBC) [Ratio] Ordered By: Campos Lee on 83-00-5897Wxcwydfawmn distribution width (RBC) [Ratio] Erythrocyte distribution width [Ratio] by Automated count12.0-14.8[facility] LimaErythrocyte morphology finding [Identifier] in Blood Ordered By: Campos Lee on 79-81-0045KSK morphology finding Nom (Bld)RBC morphologyNormalScci Hospital LimaErythrocyte sedimentation rate by Photometric methodOrdered By: Campos Lee on 50-80-2654LHY Photometric method (Bld) [Velocity]Erythrocyte sedimentation rate by Photometric method0-14 [facility] LimaGlobulin Calc (S) [Mass/Vol]Ordered By: Campos Lee on 61-20-9367Dcarxjpn (S) [Mass/Vol]Serum globulin measurement by calculation (mass/volume)[facility] LimaGlucose [Mass/volume] in Serum or PlasmaOrdered By: Campos Lee on 05-12-9505Qwncnbb [Mass/Vol]Glucose [Mass/volume] in Serum or Xdrguq88-107GgwqeppjlScci Hospital LimaComment on above:ADA recommended reference rangeRandom Glucose Reference Range is dependent on time and content of last meal. Glucose of more than 200 mg/dL in a nonstressed, ambulatory subject supports the diagnosisof Diabetes Mellitus. Hematocrit Auto (Bld) [Volume fraction]Ordered By: Campos Lee on 06-30-2024 Hematocrit (Bld) [Volume fraction]Hematocrit [Volume Fraction] of Blood by Automated count38.8-50.0[facility] LimaHemoglobin [Mass/volume] in BloodOrdered By: Campos Lee on 31-66-0112Ktsnpuzitr (Bld) [Mass/Vol]Hemoglobin [Mass/volume] in Blood13.0-17.0[facility] LimaLeukocytes [#/volume] corrected for nucleated erythrocytes in Blood by Automated counOrdered By: Campos Jesus on 10-75-2313EIN corrected for nucl RBC Auto (Bld) [#/Vol]Leukocytes [#/volume] corrected for nucleated erythrocytes in Blood by Automated coun4.1-10.5FFisher-Titus Medical CenterLipaseon 09-97-1032Ysghji [Catalytic activity/Vol]56.0 U/FGerwrr70.0-82.0The [facility] GroupComment on above:Performed By: #### JACKIE, TSH3, ESR, LIPASE, DIFF CBC, CMP, [id number], LIPID ####[place] [place] [address] USALipase [Enzymatic activity/volume] in Serum or PlasmaOrdered By: Campos Lee on 55-42-7378Arsgrz [Catalytic activity/Vol]Lipase [Enzymatic activity/volume] in Serum or Jsnfsu01.0-82.0[facility] LimaLipid Panelon 08-97-6900Fgogcfcbqex [Mass/Vol]190 mg/dLNormal 140-200The [facility] GroupComment on above:Result Comment: Chol less than 200 mg/dl low risk Chol 201-239 mg/dl borderline risk Chol 240 mg/dl and greater high riskPerformed By: #### JACKIE, TSH3, ESR, LIPASE, DIFF CBC, CMP, [id number], LIPID ####[place] [place] [address] USACholesterol in HDL [Mass/Vol]48 mg/cZQzinye99-54Wml [facility] GroupComment on above:Result Comment: HDL CHOL ATP-III CLASSIFICATION Cardiovascular Risk HDL > or equal to 60 mg/dL LOW HDL < 40 mg/dL HIGHPerformed By: #### JACKIE, TSH3, ESR, LIPASE, DIFF CBC, CMP, [id number], LIPID ####[place] [place] [address] USACholesterol.total/Cholesterol in HDL [Mass ratio]4.0 {ratio}Normal<5.0 The [facility] Physician GroupComment on above:Performed By: #### JACKIE, TSH3, ESR, LIPASE, DIFF CBC, CMP, [id number], LIPID ####[address] [place] [place] [address] USALDL Cholesterol,Xtsbxeqrbi110 mg/dLHigh0-100 The [facility] Physician GroupComment on above:Result Comment: LDL ATP III CLASSIFICATION LDL less than 100 mg/dL Optimal LDL 100-129 mg/dL Near or above optimal LDL 130-159 mg/dL Borderline high LDL 160-189 mg/dL High LDL greater than 189 mg/dL Very highPerformed By: #### JACKIE, TSH3, ESR, LIPASE, DIFF CBC, CMP, [id number], LIPID ####[place] [place] [address] USATriglyceride w/Bapyzi532 mg/dLHigh0-149The [facility] Physician GroupComment on above:Result Comment: TRIG ATP III CLASSIFICATION TRIG less than 150 mg/dL Normal TRIG 150-199 mg/dL Borderline high TRIG 200-500 mg/dL High TRIG greater than 500 mg/dL Very high Standard traceable to the Center for Disease Conrtrol and Prevention (CDC) test method.Performed By: #### JACKIE, TSH3, ESR, LIPASE, DIFF CBC, CMP, [id number], LIPID ####[place] [place] [address] USAVLDL NGYSAYFNWVK36 mg/dLNormalThe [facility] Physician GroupComment on above:Performed By: #### JACKIE, TSH3, ESR, LIPASE, DIFF CBC, CMP, [id number], LIPID ####[facility] [place] [address] USALymphocytes Auto (Bld) [#/Vol]Ordered By: Campos Lee on 93-60-5185Xxmqcqlbtoz (Bld) [#/Vol]Lymphocytes [#/volume] in Blood by Automated countScci Hospital LimaLymphocytes/100 WBC Auto (Bld) Ordered By: Campos Lee on 61-00-7561Hffhmzhlrfn/100 WBC (Bld)Lymphocytes/100 leukocytes in Blood by Automated countScci Hospital Lima Lymphocytes/100 WBC Manual cnt (Bld)Ordered By: Campos Lee on 06-30-2024 Lymphocytes/100 WBC (Bld)Lymphocytes/100 leukocytes in Blood by Manual count 18-42[facility] HospitalH Auto (RBC) [Entitic mass]Ordered By: Campos Lee on 11-68-7310QXO (RBC) [Entitic mass]MCH [Entitic mass] by Automated count27.5-35.2FFisher-Titus Medical CenterMCHC Auto (RBC) [Mass/Vol]Ordered By: Campos Lee on 18-01-4131NLYM (RBC) [Mass/Vol]MCHC [Mass/volume] by Automated count32.5-35.6FCleveland Clinic Marymount HospitalV Auto (RBC) [Entitic vol]Ordered By: Campos Lee on 76-64-7607OWR (RBC) [Entitic vol]MCV [Entitic volume] by Automated count83.5-101[facility] LimaMicrocytes LM Ql (Bld)Ordered By: Campos Lee on 94-53-2115Ejzqwzpjho Ql (Bld)Microcytes [Presence] in Blood by Light microscopyScci Hospital Lima Monocytes Auto (Bld) [#/Vol]Ordered By: Campos Lee on 27-61-1632Ncxjazkcy (Bld) [#/Vol]Automated blood monocyte countScci Hospital Lima Monocytes/100 WBC Auto (Bld)Ordered By: Campos Lee on 72-70-3770Apkjjnubt/100 WBC (Bld)Automated monocyte %[facility] LimaMonocytes/100 WBC Manual cnt (Bld)Ordered By: Campos Lee on 42-12-1736Dleayoerg/100 WBC (Bld) Monocytes/100 leukocytes in Blood by Manual countHigh2-11[facility] LimaMyelocytes/100 WBC Manual cnt (Bld)Ordered By: Campos Lee on 75-04-9225Vwwcnyhlpu/100 WBC (Bld)Myelocytes/100 leukocytes in Blood by Manual countHigh0-0[facility] LimaNeutrophils Auto (Bld) [#/Vol] Ordered By: Campos Lee on 46-05-0077Rkulappnbyn (Bld) [#/Vol]Neutrophils [#/volume] in Blood by Automated countScci Hospital Lima Neutrophils/100 WBC Auto (Bld)Ordered By: Campos Lee on 06-30-2024 Neutrophils/100 WBC (Bld)Automated neutrophil %[facility] No Panel InformationOrdered By: Campos Lee on 82-90-9599Biiwcfbmc GFR (CKD-EPI)> 60.0 mL/MinScci Hospital LimaPharmacy Creatinine Clearance (Chem N/AFFisher-Titus Medical CenterNucleated erythrocytes [Presence] in Blood by Automated countOrdered By: Campos Lee on 17-82-9271Dskgpupvu RBC Auto Ql (Bld)Nucleated erythrocytes [Presence] in Blood by Automated countScci Hospital LimaPlatelet adequacy [Presence] in Blood by Light microscopy Ordered By: Campos Lee on 62-72-7387Rrcrqqavv LM Ql (Bld)Platelet adequacy [Presence] in Blood by Light microscopyNoOhioHealth Doctors Hospital Platelet mean volume Auto (Bld) [Entitic vol]Ordered By: Campos Lee on 56-07-8461Nkxrlaco mean volume (Bld) [Entitic vol]Platelet mean volume [Entitic volume] in Blood by Automated count6.6-10.1FFisher-Titus Medical Center Platelet morphology finding [Identifier] in BloodOrdered By: Campos Lee on 85-38-3849Qjernksp morphology finding Nom (Bld)Platelet morphology finding [Identifier] in BloodNoOhioHealth Doctors HospitalPlatelets Auto (Bld) [#/Vol]Ordered By: Campos Lee on 05-71-7807Itwdweftf (Bld) [#/Vol]Platelets [#/volume] in Blood by Automated ynkwd375-820LwxmebjydScci Hospital Lima Potassium [Moles/volume] in Serum or PlasmaOrdered By: Campos Lee on 06-30-2024 Potassium [Moles/Vol]Potassium [Moles/volume] in Serum or Plasma3.5-5.1FFisher-Titus Medical CenterProtein [Mass/volume] in Serum or PlasmaOrdered By: Campos Lee on 75-76-8517Uvxfqxs [Mass/Vol]Protein [Mass/volume] in Serum or Plasma6.4-8.9[facility] LimaRBC Auto (Bld) [#/Vol]Ordered By: Campos Lee on 53-14-4356BYM (Bld) [#/Vol]Erythrocytes [#/volume] in Blood by Automated count3.90-5.60Tuscarawas Hospitalegmented neutrophils/100 WBC Manual cnt (Bld)Ordered By: Campos Lee on 06-30-2024 Segmented neutrophils/100 WBC (Bld)Manual blood segmented neutrophils/100 vatuuxfuznJtz49-75UbgnantkfTuscarawas Hospitalerum or plasma albumin/globulin mass ratioOrdered By: Campos Lee on 57-75-6484Zwxbzol/Globulin [Mass ratio]Serum or plasma albumin/globulin mass ratioTuscarawas Hospitalerum or plasma anion gap determinationOrdered By: Campos Lee on 67-21-3166Qnbfy gap [Moles/Vol]Serum or plasma anion gap determination6.0-15.0 [facility]carawas Hospitalerum or plasma total cholesterol/high density lipoprotein (HDL) cholesterol mass ratOrdered By: Campos Lee on 06-30-2024 Cholesterol.total/Cholesterol in HDL [Mass ratio]Serum or plasma total cholesterol/high density lipoprotein (HDL) cholesterol mass rat<5.0Tuscarawas Hospitalodium [Moles/volume] in Serum or PlasmaOrdered By: Campos Lee on 80-49-8783Xzupkq [Moles/Vol]Sodium [Moles/volume] in Serum or Plasma 136-145[facility] LimaThyroid Stimulating Hormoneon 06-30-2024 TSH Qn2.09 m[IU]/LNormal0.45-5.33The [facility] Physician GroupComment on above: Performed By: #### JACKIE, TSH3, ESR, LIPASE, DIFF CBC, CMP, [id number], LIPID ####[facility] [id number] Thyrotropin [Units/volume] in Serum or PlasmaOrdered By: Campos Lee on 01-98-7867CQT QnThyrotropin [Units/volume] in Serum or Plasma0.45-5.33[facility] LimaTriglyceride [Mass/volume] in Serum or PlasmaOrdered By: Campos Lee on 32-98-9690Qfpqbsrbzvwk [Mass/Vol]Triglyceride [Mass/volume] in Serum or PlasmaHigh0-149[facility] LimaComment on above:TRIG ATP III CLASSIFICATIONTRIG less than 150 mg/dL NormalTRIG 150-199 mg/dL Borderline highTRIG 200-500 mg/dL High TRIG greater than 500 mg/dL Very highStandard traceable to the Center for Disease Conrtrol and Prevention (CDC) test method.Urea nitrogen [Mass/volume] in Serum or PlasmaOrdered By: Campos Lee on 98-29-1867Aods nitrogen [Mass/Vol]Urea nitrogen [Mass/volume] in Serum or Plasma7-25[facility] LimaVitamin D 25 Hydroxy Totalon 72-92-7657Suotrqb D 25 Hydroxy Total18.0 ng/vJNnq01-309[facility] Physician GroupComment on above:Result Comment: VITAMIN D STATUS 25(OH)VITAMIN D RANGE (ng/mL) Deficient <20 Insufficient 20 to <30 Sufficient 30 to 100 Reference: Beulah Barba, Stanley WEEMS, et al. Evaluation,treatment, and prevention of vitamin D deficiency; an Endocrine Society clinical practice guideline. JCEM. 2010; 96(7):1911-30. PERFORMED BY: [facility] [address] [place] [address] PATHOLOGIST DELICATESSEN MANAGER DANIEL KNOTT M.D.Performed By: #### JACKIE, TSH3, ESR, LIPASE, DIFF CBC, CMP, [id number], LIPID ####[facility] [place] [address] [facility] MEDICAL CENTERVitamin D+Metabolites [Mass/volume] in Serum or PlasmaOrdered By: Campos Lee on 11-36-5019Wvlofgy D+Metabolites [Mass/Vol] Vitamin D+Metabolites [Mass/volume] in Serum or NalvqwKio98-279RhzgwowaqScci Hospital LimaComment on above:VITAMIN D STATUS 25(OH)VITAMIN D RANGE (ng/mL) Deficient <20 Insufficient 20 to <96Cbelawspho22 to 100Reference: Beulah Barba, Stanley WEEMS, et al. Evaluation,treatment, and prevention of vitamin D deficiency; an Endocrine Society clinical practice guideline. JCEM. 2010; 96(7):1911-30.WBC Auto (Bld) [#/Vol]Ordered By: Campos Lee on 96-62-6269FLL (Bld) [#/Vol]Leukocytes [#/volume] in Blood by Automated count 4.1-10.5FFisher-Titus Medical CenterMR HEAD/BRAIN WO CONon 63-76-2834[place] [address] Magnetic Resonance Report Signed Patient: SHY HARDWICK MR#: [id number] : 2000 Acct:[id number] Age/Sex: 23 / M ADM Date: 03/10/24 Loc: MRI Attending Dr: Nalini PAIZ Ordering Physician: Nalini Asif Date of Service: 03/10/24 Procedure(s): MR head/brain wo con Accession Number(s): [id number] cc: Campos Lee D.O.; Nalini Asif [place] [address] Patient Name: SHY HARDWICK MRN: [id number] date: 2000 Sex: M Assigned Patient Location: MRI Current Patient Location: Accession/Order Number: [id number] Exam Date: 03/10/2024 14:00 Report Date: 03/11/2024 06:48 At the request of: NALINI ASIF Procedure: MR head/brain wo con EXAMINATION: MR head/brain wo con HISTORY: Migraine Without Status Migrainosus, Dizziness COMPARISON: MR head/brain 04/26/2023 TECHNIQUE: A variety of imaging planes and parameters were utilized for visualization of suspected pathology. Images were performed without contrast. FINDINGS: CEREBRUM: No edema, hemorrhage, mass, acute [...] abnormality of the brain. Electronically authenticated by: JOEY WADDELL Date: 03/11/2024 06:48 Dictated By: Joey Waddell M.D. Signed By: 03/11/2450 DD/ 7 TD/TT: Marine Railway Operator:TBHRadiology, Radiologist, - 03/11/2024 [place] [address] Magnetic Resonance Report Signed Patient: SHY HARDWICK MR#: [id number] : 2000 Acct:[id number] Age/Sex: 23 / M ADM Date: 03/10/24 Loc: MRI Attending Dr: Nalini PAIZ Ordering Physician: Nalini Asif Date of Service: 03/10/24 Procedure(s): MR head/brain wo con Accession Number(s): [id number] cc: Campos Lee D.O.; Nalini Asif [address] [place] [address] Patient Name: SHY HARDWICK MRN: [facility]:[id number] date: 2000 Sex: M Assigned Patient Location: MRI Current Patient Location: Accession/Order Number: [id number] Exam Date: 03/10/2024 14:00 Report Date: 03/11/2024 06:48 At the request of: NLAINI ASIF Procedure: MR head/brain wo con EXAMINATION: MR head/brain wo con HISTORY: Migraine Without Status Migrainosus, Dizziness COMPARISON: MR head/brain 04/26/2023 TECHNIQUE: A variety of imaging planes and parameters were utilized for visualization of suspected pathology. Images were performed without contrast. FINDINGS: CEREBRUM: No edema, hemorrhage, mass, acute [...] abnormality of the brain. Electronically authenticated by: JOEY WADDELL Date: 03/11/2024 06:48 Dictated By: Joey Waddell M.D. Signed By: 03/11/2450 DD/ TD/TT: Marine Railway Operator: [facility] HospitalRadiology Study observation (narrative)[facility] HEAD/BRAIN WO CONOrdered By: Radiologist Radiology on 23-29-4198KZDBSamaritan Hospital Work Phone: basophils Auto (Bld) [#/Vol]Ordered By: Campos Lee on 72-26-7775Pmiiuossn (Bld) [#/Vol]0.0 10*3/uL0.0-0.2FFisher-Titus Medical CenterBasophils/100 WBC Auto (Bld)Ordered By: Campos Lee on 11-22-2023 Basophils/100 WBC (Bld)0.5 %.[facility] Hospital LimaEosinophils Auto (Bld) [#/Vol]Ordered By: Campos Lee on 45-90-2112Cxwoljsumbk (Bld) [#/Vol]0.4 10*3/uL0.0-0.45S[facility] Hospital LimaEosinophils/100 WBC Auto (Bld) Ordered By: Campos Lee on 56-67-6489Dejodbolhjx/100 WBC (Bld)6.1 %.[facility] Hospital LimaErythrocyte distribution width Auto (RBC) [Ratio]Ordered By: Campos Lee on 71-02-7002Rmhidfpiwic distribution width (RBC) [Ratio]12.5 % 12.0-14.8S[facility] Hospital LimaHematocrit Auto (Bld) [Volume fraction]Ordered By: Campos Lee on 79-12-2404Zstmisjxnd (Bld) [Volume fraction] 45.0 %38.8-50.0[facility] Medical CenterHemoglobin [Mass/volume] in BloodOrdered By: Campos Lee on 50-27-2020Cbtrhhlwfy (Bld) [Mass/Vol]15.2 g/dL 13.0-17.0S[facility] Hospital LimaLeukocytes [#/volume] corrected for nucleated erythrocytes in Blood by Automated counOrdered By: Campos Lee on 10-26-7009TKG corrected for nucl RBC Auto (Bld) [#/Vol]6.4 10*3/uL4.1-10.5 [facility] LimaLymphocytes Auto (Bld) [#/Vol]Ordered By: Campos Lee on 46-44-9751Bacpputrspa (Bld) [#/Vol]2.7 10*3/uL1.00-4.8S[facility] Hospital LimaLymphocytes/100 WBC Auto (Bld)Ordered By: Campos Lee on 27-95-6220Etxkuivtwwj/100 WBC (Bld)42.6 %.[facility] Hospital LimaMCH Auto (RBC) [Entitic mass]Ordered By: Campos Lee on 12-15-7333WKF (RBC) [Entitic mass]29.9 pg27.5-35.2FFisher-Titus Medical CenterMCHC Auto (RBC) [Mass/Vol] Ordered By: Campos Lee on 49-88-7193WEWD (RBC) [Mass/Vol]33.7 g/dL32.5-35.6 [facility] LimaMCV Auto (RBC) [Entitic vol]Ordered By: Campos Lee on 94-51-7252WJC (RBC) [Entitic vol]88.9 fL83.5-101S[facility] Hospital LimaMonocytes Auto (Bld) [#/Vol]Ordered By: Campos Lee on 11-22-2023 Monocytes (Bld) [#/Vol]0.6 10*3/uL0.0-0.8[facility] Monocytes/100 WBC Auto (Bld)Ordered By: Campos Lee on 28-14-1469Qvjgaqsvh/100 WBC (Bld)9.0 %.[facility] Hospital LimaNeutrophils Auto (Bld) [#/Vol] Ordered By: Campos Lee on 79-48-7654Zvzqynvkszt (Bld) [#/Vol]2.7 10*3/uL1.8-7.7 [facility] LimaNeutrophils/100 WBC Auto (Bld)Ordered By: Campos Lee on 38-72-5565Njyjssflsuz/100 WBC (Bld)41.8 %.[facility] Hospital LimaNucleated erythrocytes [Presence] in Blood by Automated countOrdered By: Campos Lee on 59-29-2794Oowwatniy RBC Auto Ql (Bld)0.1 /100{WBC}0-0.5FFisher-Titus Medical CenterPlatelet mean volume Auto (Bld) [Entitic vol]Ordered By: Campos Lee on 68-17-9648Ngbvnold mean volume (Bld) [Entitic vol]8.5 fL6.6-10.1 [facility] LimaPlatelets Auto (Bld) [#/Vol]Ordered By: Campos Lee on 57-86-8949Kiabtfvrz (Bld) [#/Vol]233 10*3/wM183-058GernwplyaScci Hospital LimaRBC Auto (Bld) [#/Vol]Ordered By: Campos Lee on 10-52-6116ZLM (Bld) [#/Vol]5.06 10*6/uL3.90-5.60S[facility] Hospital LimaWBC Auto (Bld) [#/Vol]Ordered By: Campos Lee on 75-57-2429LRT (Bld) [#/Vol]6.4 10*3/uL 4.1-10.5FFisher-Titus Medical CenterAlanine aminotransferase [Enzymatic activity/volume] in Serum or PlasmaOrdered By: Campos Lee on 45-47-1688XUH [Catalytic activity/Vol]31 U/L7-52[facility] LimaAlbumin [Mass/volume] in Serum or Plasma by Bromocresol green (BCG) dye binding metho Ordered By: Campos Lee on 92-50-3291Woeuwrk BCG dye [Mass/Vol]4.9 g/dL3.5-5.7 [facility] LimaAlkaline phosphatase [Enzymatic activity/volume] in Serum or PlasmaOrdered By: Campos Lee on 74-83-6309VAM [Catalytic activity/Vol]71 U/W15-596DugmcygumScci Hospital LimaAspartate aminotransferase [Enzymatic activity/volume] in Serum or PlasmaOrdered By: Campos Lee on 14-14-6744PKF [Catalytic activity/Vol]23 U/A29-89NztvyovysScci Hospital LimaBasophils Auto (Bld) [#/Vol]Ordered By: Campos Lee on 10-25-2023 Basophils (Bld) [#/Vol]0.0 10*3/uL0.0-0.2FFisher-Titus Medical Center Basophils/100 WBC Auto (Bld)Ordered By: Campos Lee on 67-09-9975Wuaiprgyc/100 WBC (Bld)0.7 %.[facility] Hospital LimaBilirubin.total [Mass/volume] in Serum or PlasmaOrdered By: Campos Lee on 02-64-7132Nlsjvaell [Mass/Vol]1.0 mg/dL0.3-1.0[facility] LimaCalcium [Mass/volume] in Serum or PlasmaOrdered By: Campos Lee on 37-66-0032Ymdtdfg [Mass/Vol]9.8 mg/dL8.6-10.3 [facility] LimaCarbon dioxide, total [Moles/volume] in Serum or PlasmaOrdered By: Campos Lee on 13-64-5992YB9 [Moles/Vol]31.8 mmol/L21.0-31.0 [facility] LimaChloride [Moles/volume] in Serum or Plasma Ordered By: Campos Lee on 47-95-8771Ncsnjjzv [Moles/Vol]103 mmol/L98-107 [facility] LimaCholesterol [Mass/volume] in Serum or Plasma Ordered By: Campos Lee on 13-53-1569Vpiwbtshhgn [Mass/Vol]159 mg/bO153-181 [facility] LimaComment on above:Chol less than 200 mg/dl low riskChol 201-239 mg/dl borderline riskChol 240 mg/dl and greater high risk Cholesterol in LDL Calc [Mass/Vol]Ordered By: Campos Lee on 10-25-2023 Cholesterol in LDL [Mass/Vol]104 mg/dL0-100[facility] Comment on above:LDL ATP III CLASSIFICATIONLDL less than 100 mg/dL OptimalLDL 100-129 mg/dL Near or above xencxfvIKZ561-922 mg/dL Borderline highLDL 160-189 mg/dL HighLDL greater than 189 mg/dL Very highCholesterol in VLDL Calc [Mass/Vol]Ordered By: Campos Lee on 84-29-8069Fxdtyzsdieq in VLDL [Mass/Vol]15 mg/dLScci Hospital LimaCreatinine [Mass/volume] in Serum or PlasmaOrdered By: Campos Lee on 36-41-3338Cevrzxgqvm [Mass/Vol]0.84 mg/dL 0.70-1.30[facility] LimaEosinophils Auto (Bld) [#/Vol]Ordered By: Campos Lee on 58-65-2925Gumoagthoyq (Bld) [#/Vol]0.5 10*3/uL0.0-0.45 [facility] LimaEosinophils/100 WBC Auto (Bld)Ordered By: Campos Lee on 57-22-3173Jnvsifcsyiw/100 WBC (Bld)7.7 %.[facility] LimaErythrocyte distribution width Auto (RBC) [Ratio]Ordered By: Campos Lee on 59-31-4339Rzcyaroscsj distribution width (RBC) [Ratio]12.7 %12.0-14.8[facility] Hospital LimaGlobulin Calc (S) [Mass/Vol]Ordered By: Campos Lee on 12-53-9062Vjkmrgvk (S) [Mass/Vol]2.5 g/dLScci Hospital Lima Glucose [Mass/volume] in Serum or PlasmaOrdered By: Campos Lee on 10-25-2023 Glucose [Mass/Vol]79 mg/cP94-003NqliuyjekScci Hospital LimaComment on above:ADA recommended reference rangeRandom Glucose Reference Range is dependent on time and content of last meal. Glucose of more than 200 mg/dL in a nonstressed, ambulatory subject supports the diagnosisof Diabetes Mellitus. Hematocrit Auto (Bld) [Volume fraction]Ordered By: Campos Lee on 10-25-2023 Hematocrit (Bld) [Volume fraction]46.4 %38.8-50.0[facility] LimaHemoglobin [Mass/volume] in BloodOrdered By: Campos Lee on 10-25-2023 Hemoglobin (Bld) [Mass/Vol]15.7 g/dL13.0-17.0[facility] Leukocytes [#/volume] corrected for nucleated erythrocytes in Blood by Automated counOrdered By: Campos Lee on 19-75-9669ELK corrected for nucl RBC Auto (Bld) [#/Vol]6.0 10*3/uL4.1-10.5FFisher-Titus Medical CenterLymphocytes Auto (Bld) [#/Vol]Ordered By: Campos Lee on 30-30-2287Njntkyiktlp (Bld) [#/Vol]2.8 10*3/uL1.00-4.8[facility] LimaLymphocytes/100 WBC Auto (Bld) Ordered By: Campos Lee on 08-49-2859Hmdyzbrkaib/100 WBC (Bld)47.1 %.[facility] LimaMCH Auto (RBC) [Entitic mass]Ordered By: Campos Lee on 87-65-4534MPH (RBC) [Entitic mass]29.7 pg27.5-35.2FFisher-Titus Medical CenterMCHC Auto (RBC) [Mass/Vol]Ordered By: Campos Lee on 39-43-2287OCVS (RBC) [Mass/Vol]33.7 g/dL32.5-35.6FFisher-Titus Medical CenterMCV Auto (RBC) [Entitic vol]Ordered By: Campos Lee on 36-49-6928BMY (RBC) [Entitic vol]88.2 fL 83.5-101[facility] LimaMonocytes Auto (Bld) [#/Vol]Ordered By: Campos Lee on 48-20-0763Rtnqkhmib (Bld) [#/Vol]0.5 10*3/uL0.0-0.8[facility] LimaMonocytes/100 WBC Auto (Bld)Ordered By: Campos Lee on 84-95-5838Tnisjypqq/100 WBC (Bld)8.6 %.[facility] Neutrophils Auto (Bld) [#/Vol]Ordered By: Campos Lee on 06-54-2438Ijolvamdsdm (Bld) [#/Vol]2.2 10*3/uL1.8-7.7FFisher-Titus Medical CenterNeutrophils/100 WBC Auto (Bld)Ordered By: Campos Lee on 07-90-7543Dktrunoddpq/100 WBC (Bld)35.9 %.[facility] LimaNo Panel InformationOrdered By: Campos Lee on 48-97-7347Ygwrvojjd GFR (CKD-EPI)> 60.0 mL/MinScci Hospital Lima Pharmacy Creatinine Clearance (ChemN/AFFisher-Titus Medical CenterNucleated erythrocytes [Presence] in Blood by Automated countOrdered By: Campos Lee on 40-24-5358Fyfcdazgq RBC Auto Ql (Bld)0.2 /100{WBC}0-0.5FFisher-Titus Medical CenterPlatelet mean volume Auto (Bld) [Entitic vol]Ordered By: Campos Lee on 29-13-2169Kmesiumg mean volume (Bld) [Entitic vol]8.5 fL6.6-10.1 [facility] LimaPlatelets Auto (Bld) [#/Vol]Ordered By: Campos Lee on 26-70-9087Kujqdheas (Bld) [#/Vol]239 10*3/iL029-716SyxudknycScci Hospital LimaPotassium [Moles/volume] in Serum or PlasmaOrdered By: Campos Lee on 68-63-1822Gbquouuut [Moles/Vol]4.0 mmol/L3.5-5.1FFisher-Titus Medical CenterProtein [Mass/volume] in Serum or PlasmaOrdered By: Campos Lee on 57-41-9307Epwwckv [Mass/Vol]7.4 g/dL6.4-8.9[facility] LimaRBC Auto (Bld) [#/Vol]Ordered By: Camops Lee on 99-54-3077NPU (Bld) [#/Vol]5.26 10*6/uL3.90-5.60Tuscarawas Hospitalerum or plasma albumin/globulin mass ratioOrdered By: Campos Lee on 91-69-7066Emmioee/Globulin [Mass ratio]2.0 {ratio}[facility]carawas Hospitalerum or plasma anion gap determinationOrdered By: Campos Lee on 58-98-6795Hidxo gap [Moles/Vol]9.2 mmol/L6.0-15.0T[facility]carawas Hospitalerum or plasma high density lipoprotein (HDL) cholesterol measurementOrdered By: Campos Lee on 10-25-2023 Cholesterol in HDL [Mass/Vol]40 mg/wM67-08NnjofhfpiScci Hospital Lima Comment on above:HDL CHOL ATP-III CLASSIFICATION Cardiovascular RiskHDL > or equal to 60 mg/dL LOWHDL < 40 mg/dL HIGHSerum or plasma total cholesterol/high density lipoprotein (HDL) cholesterol mass ratOrdered By: Campos Lee on 65-60-5660Mfzoilvbvvt.total/Cholesterol in HDL [Mass ratio]4.0 {ratio}<5.0 [facility] Hospitalodium [Moles/volume] in Serum or PlasmaOrdered By: Campos Lee on 92-21-8379Hcthbh [Moles/Vol]140 mmol/A056-265XflntxwotScci Hospital LimaThyrotropin [Units/volume] in Serum or PlasmaOrdered By: Campos Lee on 20-87-5085DUI Qn1.97 m[IU]/L0.45-5.33[facility] LimaTriglyceride [Mass/volume] in Serum or PlasmaOrdered By: Campos Lee on 54-11-1437Kldtencyueub [Mass/Vol]77 mg/dL0-149[facility] Comment on above:TRIG ATP III CLASSIFICATIONTRIG less than 150 mg/dL NormalTRIG 150-199 mg/dL Borderline highTRIG 200-500 mg/dL High TRIG greater than 500 mg/dL Very highStandard traceable to the Center for Disease Conrtrol and Prevention (CDC) test method.Urea nitrogen [Mass/volume] in Serum or PlasmaOrdered By: Campos Lee on 59-25-7860Hucx nitrogen [Mass/Vol]14 mg/dL7-25[facility] Hospital LimaVitamin D+Metabolites [Mass/volume] in Serum or PlasmaOrdered By: Campos Lee on 65-05-0280Kvzzihk D+Metabolites [Mass/Vol]12.4 ng/oN02-748 [facility] LimaComment on above:VITAMIN D STATUS 25(OH)VITAMIN D RANGE (ng/mL) Deficient <20 Insufficient 20 to <27Umpimudqso86 to 100Reference: Travon MF,Beulah LANDON, Stanley WEEMS, et al. Evaluation,treatment, and prevention of vitamin D deficiency; an Endocrine Society clinical practice guideline. JCEM. 2010; 96(7):1911-30.WBC Auto (Bld) [#/Vol]Ordered By: Campos Lee on 82-68-8151CFI (Bld) [#/Vol]6.0 10*3/uL 4.1-10.5FFisher-Titus Medical CenterUrine 10 SGon 98-05-6702Okdjbag DL <= 20 mg/L (U) [Mass/Vol]traceOpen-Xchange Other Albumin DL <= 20 mg/L (U) [Mass/Vol]NegativeSparrows Point CloudCar Other pH (U)7.0 [pH][place] CloudCar Other urine 10 SGNegativeItsOn Other urine 10 SG1.025NoOpen-Xchange Other urine 10 SG1.0NoOpen-Xchange Other Alanine aminotransferase [Enzymatic activity/volume] in Serum or PlasmaOrdered By: Eloy Turner on 24-12-7057CDB [Catalytic activity/Vol]32 U/L7-52[facility] LimaAlbumin [Mass/volume] in Serum or Plasma by Bromocresol green (BCG) dye binding methoOrdered By: Eloy Turner on 94-19-5816Dnkvjye BCG dye [Mass/Vol]5.0 g/dL3.5-5.7FFisher-Titus Medical CenterAlkaline phosphatase [Enzymatic activity/volume] in Serum or PlasmaOrdered By: Eloy Turner on 35-00-6337RNF [Catalytic activity/Vol]64 U/L 34-104[facility] Hospital LimaAspartate aminotransferase [Enzymatic activity/volume] in Serum or PlasmaOrdered By: Eloy Turner on 00-28-6296XTO [Catalytic activity/Vol]31 U/T71-38JswtpcltuScci Hospital LimaBasophils Auto (Bld) [#/Vol]Ordered By: Eloy Turner on 35-61-0784Ppyuayphz (Bld) [#/Vol] 0.0 10*3/uL0.0-0.2FFisher-Titus Medical CenterBasophils/100 WBC Auto (Bld) Ordered By: Eloy Turner on 64-41-9452Qputfpyaj/100 WBC (Bld)0.7 %.[facility] LimaBilirubin.total [Mass/volume] in Serum or PlasmaOrdered By: Eloy Turner on 52-14-7078Lcxhvqwyy [Mass/Vol]0.9 mg/dL0.3-1.0Scci Hospital LimaC reactive protein [Mass/volume] in Serum or Plasma Ordered By: Eloy Turner on 78-86-6863QCC [Mass/Vol]< 0.5 mg/dL0.0-0.5FFisher-Titus Medical CenterCalcium [Mass/volume] in Serum or PlasmaOrdered By: Eloy Turner on 07-57-8216Vdbpcuq [Mass/Vol]9.9 mg/dL8.6-10.3FFisher-Titus Medical CenterCarbon dioxide, total [Moles/volume] in Serum or PlasmaOrdered By: Eloy Turner on 17-69-6424QU5 [Moles/Vol]27.1 mmol/L21.0-31.0[facility] LimaChloride [Moles/volume] in Serum or PlasmaOrdered By: Eloy Turner on 12-75-1755Crrkforz [Moles/Vol]105 mmol/T72-443LubcrxxqvScci Hospital LimaCreatinine [Mass/volume] in Serum or PlasmaOrdered By: Eloy Turner on 45-94-2632Oclffuendb [Mass/Vol]0.87 mg/dL0.70-1.30[facility] LimaEosinophils Auto (Bld) [#/Vol]Ordered By: Eloy Turner on 00-54-0360Rkhcdcauoqr (Bld) [#/Vol]0.1 10*3/uL0.0-0.45[facility] LimaEosinophils/100 WBC Auto (Bld)Ordered By: Eloy Turner on 20-87-2031Szoythjmozr/100 WBC (Bld)1.8 %.[facility] Erythrocyte distribution width Auto (RBC) [Ratio]Ordered By: Eloy Turner on 74-08-6728Avkieidzczc distribution width (RBC) [Ratio]13.0 %12.0-14.8[facility] LimaGlobulin Calc (S) [Mass/Vol]Ordered By: Eloy Turner on 74-38-4240Vzjrdknx (S) [Mass/Vol]2.4 g/dLScci Hospital Lima Glucose [Mass/volume] in Serum or PlasmaOrdered By: Eloy Turner on 11-03-2022 Glucose [Mass/Vol]97 mg/cD03-045LcibkfvnjScci Hospital LimaComment on above:ADA recommended reference rangeRandom Glucose Reference Range is dependent on time and content of last meal. Glucose of more than 200 mg/dL in a nonstressed, ambulatory subject supports the diagnosisof Diabetes Mellitus. Hematocrit Auto (Bld) [Volume fraction]Ordered By: Eloy Turner on 11-03-2022 Hematocrit (Bld) [Volume fraction]41.7 %38.8-50.0[facility] LimaHemoglobin [Mass/volume] in BloodOrdered By: Eloy Turner on 11-03-2022 Hemoglobin (Bld) [Mass/Vol]14.3 g/dL13.0-17.0[facility] Laboratory - Chemistry and Chemistry - challengeOrdered By: Eloy Turner on 45-47-2096GVD/1.73 sq M.predicted MDRD (S/P/Bld) [Vol rate/Area]mL/min/{1.73_m2} [facility] LimaLeukocytes [#/volume] corrected for nucleated erythrocytes in Blood by Automated counOrdered By: Eloy Turner on 11-03-2022 WBC corrected for nucl RBC Auto (Bld) [#/Vol]7.1 10*3/uL4.1-10.5FFisher-Titus Medical CenterLymphocytes Auto (Bld) [#/Vol]Ordered By: Eloy Turner on 88-95-0971Zgqwznwwbri (Bld) [#/Vol]2.3 10*3/uL1.00-4.8[facility] LimaLymphocytes/100 WBC Auto (Bld)Ordered By: Eloy Turner on 44-31-6200Qpdhcavixqo/100 WBC (Bld)32.7 %.[facility] HospitalH Auto (RBC) [Entitic mass]Ordered By: Eloy Turner on 50-14-8613MXD (RBC) [Entitic mass]30.5 pg27.5-35.2FCleveland Clinic Marymount HospitalHC Auto (RBC) [Mass/Vol]Ordered By: Eloy Turner on 87-01-7613DMHS (RBC) [Mass/Vol]34.3 g/dL 32.5-35.6FCleveland Clinic Marymount HospitalV Auto (RBC) [Entitic vol]Ordered By: Eloy Turner on 18-06-3080NDS (RBC) [Entitic vol]89.0 fL83.5-101[facility] LimaMonocyte distribution width [Entitic volume] in Blood by AutomatedOrdered By: Eloy Turner on 68-13-9282Fxsaaydv distribution width Auto (Bld) [Entitic vol]15.37 %0.00-20.00[facility] LimaMonocytes Auto (Bld) [#/Vol]Ordered By: Eloy Turner on 19-21-1571Yswgnrnao (Bld) [#/Vol] 0.6 10*3/uL0.0-0.8[facility] LimaMonocytes/100 WBC Auto (Bld) Ordered By: Eloy Turner on 84-87-5750Mwvspmcoq/100 WBC (Bld)8.3 %.[facility] LimaNeutrophils Auto (Bld) [#/Vol]Ordered By: Eloy Turner on 65-85-5370Dwjjdjixrms (Bld) [#/Vol]4.0 10*3/uL1.8-7.7FFisher-Titus Medical CenterNeutrophils/100 WBC Auto (Bld)Ordered By: Eloy Turner on 43-24-7400Dkcnfvwatap/100 WBC (Bld)56.5 %.[facility] LimaNo Panel InformationOrdered By: Eloy Turner on 36-56-2575Melsxapt Creatinine Clearance (Ofsy248.05[facility] Hospital LimaNucleated erythrocytes [Presence] in Blood by Automated countOrdered By: Eloy Turner on 11-03-2022 Nucleated RBC Auto Ql (Bld)0.1 /100{WBC}0-0.5FFisher-Titus Medical Center Platelet mean volume Auto (Bld) [Entitic vol]Ordered By: Eloy Turner on 20-02-4952Yiriynls mean volume (Bld) [Entitic vol]8.1 fL6.6-10.1FFisher-Titus Medical CenterPlatelets Auto (Bld) [#/Vol]Ordered By: Eloy Turner on 01-83-2226Cmgirtnxm (Bld) [#/Vol]248 10*3/qP827-308RwilxriypScci Hospital LimaPotassium [Moles/volume] in Serum or PlasmaOrdered By: Eloy Turner on 81-91-1618Eruygpthh [Moles/Vol]3.7 mmol/L3.5-5.1FFisher-Titus Medical CenterProtein [Mass/volume] in Serum or PlasmaOrdered By: Eloy Turner on 78-90-4052Shphbcx [Mass/Vol]7.4 g/dL6.4-8.9[facility] LimaRBC Auto (Bld) [#/Vol]Ordered By: Eloy Turner on 96-03-9750QKP (Bld) [#/Vol]4.68 10*6/uL3.90-5.60[facility]carawas Hospitalerum or plasma albumin/globulin mass ratioOrdered By: Eloy Turner on 11-03-2022 Albumin/Globulin [Mass ratio]2.1 {ratio}[facility]aw[facility] Hospitalerum or plasma anion gap determinationOrdered By: Eloy Turner on 52-93-6727Kenaw gap [Moles/Vol]10.6 mmol/L6.0-15.0Tuscarawas Hospitalodium [Moles/volume] in Serum or PlasmaOrdered By: Elyo Turner on 30-59-1461Hsetgd [Moles/Vol]139 mmol/W895-652CvyknfjbzScci Hospital LimaUrea nitrogen [Mass/volume] in Serum or PlasmaOrdered By: Eloy Turner on 09-83-8599Vsdo nitrogen [Mass/Vol]12 mg/dL7-25[facility] LimaWBC Auto (Bld) [#/Vol]Ordered By: Eloy Turner on 11-59-9452TXU (Bld) [#/Vol]7.1 10*3/uL 4.1-10.5FFisher-Titus Medical CenterBilirubin Test strip Ql (U)Ordered By: PROVIDER TEMP on 93-59-3174Zwzmyhhtc Ql (U)NegativeNegCleveland Clinic Union HospitalColor Auto (U)Ordered By: PROVIDER TEMP on 22-05-7881Pyeqa (U) YellowYellowScci Hospital LimaKetones Auto test strip (U) [Mass/Vol]Ordered By: PROVIDER TEMP on 41-35-4400Qgvzybl (U) [Mass/Vol]Negative [facility] Health CenterNitrite Test strip Ql (U)Ordered By: PROVIDER TEMP on 99-58-7968Zqfnkvx Ql (U)NegativeNegCleveland Clinic Union HospitalProtein Auto test strip (U) [Mass/Vol]Ordered By: PROVIDER TEMP on 05-53-7943Ztfxxhi (U) [Mass/Vol]NegativePeoples Hospitalpecific gravity Auto test strip (U) [Rel density]Ordered By: PROVIDER TEMP on 34-25-1748Ihgfkxwv gravity (U) [Rel density]1.0021.001-1.030[facility] Hospital LimaUrine clarity by refractometry automatedOrdered By: PROVIDER TEMP on 01-72-3093Msryttv Refractometry automated (U)ClearClear [facility] LimaUrine glucose measurement by automated test strip (mass/volume)Ordered By: PROVIDER TEMP on 65-66-9531Ahybean Auto test strip (U) [Mass/Vol]Normal mg/dLNoOhioHealth Doctors HospitalUrine hemoglobin detection by automated test stripOrdered By: PROVIDER TEMP on 52-71-7164Vsyyjbuohn Auto test strip Ql (U)NegativeFulton County Health CenterUrine leukocyte esterase detection by automated test stripOrdered By: PROVIDER TEMP on 14-55-2914Byexxzidv esterase Auto test strip Ql (U)Negative [facility] CenterUrobilinogen Auto test strip (U) [Mass/Vol]Ordered By: PROVIDER TEMP on 88-73-5885Zncimzlawcen (U) [Mass/Vol] Normal mg/dLNoOhioHealth Doctors HospitalpH Auto test strip (U)Ordered By: ROSARIO NELSON on 39-60-4607nU (U)6.5 [pH]5.0-9.0[facility] Hospital LimaAlanine aminotransferase [Enzymatic activity/volume] in Serum or Plasma Ordered By: Campos eLe on 47-99-4531NJR [Catalytic activity/Vol]28 U/L7-52 [facility] LimaAlbumin [Mass/volume] in Serum or Plasma by Bromocresol green (BCG) dye binding methoOrdered By: Campos Lee on 10-27-2022 Albumin BCG dye [Mass/Vol]5.1 g/dL3.5-5.7FFisher-[facility]itus Medical Center Alkaline phosphatase [Enzymatic activity/volume] in Serum or PlasmaOrdered By: Campos Lee on 62-89-2141UJW [Catalytic activity/Vol]66 U/S91-715AyfqwdhcmScci Hospital LimaAspartate aminotransferase [Enzymatic activity/volume] in Serum or PlasmaOrdered By: Campos Lee on 84-31-8872ATE [Catalytic activity/Vol] 19 U/U12-61NnkttflsbScci Hospital LimaBasophils Auto (Bld) [#/Vol]Ordered By: Campos Lee on 05-68-5961Sijphkzhk (Bld) [#/Vol]0.0 10*3/uL0.0-0.2FFisher-Titus Medical CenterBasophils/100 WBC Auto (Bld)Ordered By: Campos Lee on 56-47-6452Flvxdpeek/100 WBC (Bld)0.8 %.[facility] Bilirubin.total [Mass/volume] in Serum or PlasmaOrdered By: Campos Lee on 75-13-2232Wiqhxyplo [Mass/Vol]1.4 mg/dL0.3-1.0[facility] Comment on above:Samples from patients who have taken Naproxen have shown spurious elevation in Total Bilirubin levels. A metabolite of Naproxen, O- desmethylnaproxen, has been shown to interfere with the Per method for measuring Total Bilirubin.Calcium [Mass/volume] in Serum or PlasmaOrdered By: Campos Lee on 93-57-1985Alunkzj [Mass/Vol]9.7 mg/dL8.6-10.3FFisher-Titus Medical CenterCarbon dioxide, total [Moles/volume] in Serum or Plasma Ordered By: Campos Lee on 57-26-9389NV0 [Moles/Vol]27.6 mmol/L21.0-31.0[facility] LimaChloride [Moles/volume] in Serum or PlasmaOrdered By: Campos Lee on 58-00-8263Rdtuuiga [Moles/Vol]107 mmol/D62-192EwgrfkthiScci Hospital LimaCholesterol [Mass/volume] in Serum or PlasmaOrdered By: Campos Lee on 50-31-4549Qaamohlztka [Mass/Vol]162 mg/oM455-820QnaddxdgcScci Hospital LimaComment on above:Chol less than 200 mg/dl low riskChol 201-239 mg/dl borderline riskChol 240 mg/dl and greater high riskCholesterol in LDL Calc [Mass/Vol]Ordered By: Campos Lee on 48-93-4299Hdasdsfzywz in LDL [Mass/Vol]109 mg/dL0-100[facility] LimaComment on above:LDL ATP III CLASSIFICATIONLDL less than 100 mg/dL OptimalLDL 100-129 mg/dL Near or above jmvrtqfRTD943-536 mg/dL Borderline highLDL 160-189 mg/dL HighLDL greater than 189 mg/dL Very highCholesterol in VLDL Calc [Mass/Vol]Ordered By: Campos Lee on 93-03-2018Luxofyurpyh in VLDL [Mass/Vol]11 mg/dLScci Hospital LimaComplete Blood Count Auto Diffon 98-43-8194Kgzbvqmif (Bld) [#/Vol] 0.218528419 10*3/uLNormal0.0-0.2 10*3/DOZ Other Basophils/100 WBC (Bld)0.800 %. %[employer] Other Eosinophils (Bld) [#/Vol]0.512272607 10*3/uLNormal0.0- 0.45 10*3/DOZ Other Eosinophils/100 WBC (Bld)4.600 %. %[employer] Other Erythrocyte distribution width (RBC) [Ratio]13.300 % Qdgvjg96.0-14.8 %[employer] Other Hematocrit (Bld) [Volume fraction]44.000 %Apyynq80.8- 50.0 %[employer] Other Hemoglobin (Bld) [Mass/Vol]15.437018 g/tNNvpuik60.0- 17.0 g/dLNoOpen-Xchange Other Lymphocytes (Bld) [#/Vol]2.526191346 10*3/uLNormal 1.00-4.8 10*3/DOZ Other Lymphocytes/100 WBC (Bld)42.100 %. %[employer] Other MCH (RBC) [Entitic mass]30.5000 jtJfqyvo81.5-35.2 pg [employer] Other MCV (RBC) [Entitic vol]88.7000 dJZvtcfi38.5-101 fL [employer] Other Monocytes (Bld) [#/Vol]0.186923044 10*3/uLNormal0.0- 0.8 10*3/DOZ Other Monocytes/100 WBC (Bld)7.500 %. %[employer] Other Neutrophils (Bld) [#/Vol]2.392407738 10*3/uLNormal1.8- 7.7 10*3/DOZ Other Neutrophils/100 WBC (Bld)45.000 %. %[employer] Other Platelet mean volume (Bld) [Entitic vol]8.9000 fL Normal6.6-10.1 fLSpar[place] [employer] Other WBC (Bld) [#/Vol]5.571597438 10*3/uLNormal4.1-10.5 10*3/uLItsOn Other Complete Blood Count Auto Diff5.2 10*3/uLNormal4.1- 10.5 10*3/uLItsOn Other Complete Blood Count Auto Diff34.3 g/rCOwjhjs89.5-35.6 g/dLAffinity Labs [employer] Other Complete Blood Count Auto Diff0.0 /100{WBC}Normal0-0.5 /100{WBC}[employer] Other Comprehensive Metabolic Panelon 15-23-3544Mthiwee [Mass/Vol]5.645368 g/dLNormal3.5-5.7 g/dLAffinity Labs CloudCar Other Bilirubin [Mass/Vol]1.7146849 mg/dLHigh0.3-1.0 mg/dL [employer] Other Calcium [Mass/Vol]9.5265080 mg/dLNormal8.6-10.3 mg/dL Its[employer] Other CO2 [Moles/Vol]27.41543711 mmol/YZkcsok73.0-31.0 mmol/LNmVakil - Track Court [employer] Other Creatinine [Mass/Vol]0.79859534 mg/dLNormal0.70-1.30 mg/dLAffinity Labs Cloud[employer] Other Potassium [Moles/Vol]4.63700379 mmol/LNormal3.5-5.1 mmol/LNmVakil - Track Court [employer] Other Protein [Mass/Vol]7.229352 g/dLNormal6.4-8.9 g/dLNortTransLattice Other Comprehensive Metabolic Panel2.3 g/dLNoOpen-Xchange Other Comprehensive Metabolic PanelOrdered By: Campos Lee on 46-37-1264AEV/1.73 sq M.predicted MDRD (S/P/Bld) [Vol rate/Area] mL/min/{1.73_m2}[facility] LimaCreatinine [Mass/volume] in Serum or PlasmaOrdered By: Campos Lee on 07-95-5913Wjitdhxjjf [Mass/Vol]0.90 mg/dL0.70-1.30S[facility] Hospital LimaEosinophils Auto (Bld) [#/Vol] Ordered By: Campos Lee on 61-10-7013Tmwtpefcigt (Bld) [#/Vol]0.2 10*3/uL0.0-0.45 [facility] LimaEosinophils/100 WBC Auto (Bld)Ordered By: Campos Lee on 57-38-7706Hbuotrrecfy/100 WBC (Bld)4.6 %.[facility] LimaErythrocyte distribution width Auto (RBC) [Ratio]Ordered By: Campos Lee on 54-54-2527Vowtsfhdbzk distribution width (RBC) [Ratio]13.3 %12.0-14.8[facility] Hospital LimaErythrocytes [#/volume] in Blood by Automated count Ordered By: Campos Lee on 54-50-9272ARA (Bld) [#/Vol]4.96 10*6/uL3.90-5.60 [facility] LimaFree T4 (Free Thyroxine)on 07-40-3982Rknl T4 [Mass/Vol]0.91703382 ng/dLNormal0.61-1.12 ng/dLNortTransLattice Other Globulin Calc (S) [Mass/Vol]Ordered By: Campos Lee on 10-28-2299Ogbdihrw (S) [Mass/Vol]2.3 g/dLScci Hospital Lima Glucose [Mass/volume] in Serum or PlasmaOrdered By: Campos Lee on 10-27-2022 Glucose [Mass/Vol]91 mg/cT45-274RjkhdrliaScci Hospital LimaComment on above:ADA recommended reference rangeRandom Glucose Reference Range is dependent on time and content of last meal. Glucose of more than 200 mg/dL in a nonstressed, ambulatory subject supports the diagnosisof Diabetes Mellitus. Hematocrit Auto (Bld) [Volume fraction]Ordered By: Campos Lee on 10-27-2022 Hematocrit (Bld) [Volume fraction]44.0 %38.8-50.0[facility] LimaHemoglobin [Mass/volume] in BloodOrdered By: Campos Lee on 10-27-2022 Hemoglobin (Bld) [Mass/Vol]15.1 g/dL13.0-17.0[facility] Leukocytes [#/volume] corrected for nucleated erythrocytes in Blood by Automated counOrdered By: Campos Lee on 86-46-5938TDC corrected for nucl RBC Auto (Bld) [#/Vol]5.2 10*3/uL4.1-10.5FFisher-Titus Medical CenterLipid Panelon 66-57-9750Rjnjjvolfpj in LDL Elph Qn109 mg/dLHigh0-100 mg/dLNomercy hospital washington [employer] Other Lipid Panel56 mg/dLNormal0-149 mg/dLNomercy hospital [place]ton [employer] Other Lipid Panel11 mg/dLNomercy hospital [place] [employer] Other Lymphocytes Auto (Bld) [#/Vol]Ordered By: Campos Lee on 57-54-6095Ndggjeivund (Bld) [#/Vol]2.2 10*3/uL1.00-4.8[facility] LimaLymphocytes/100 WBC Auto (Bld)Ordered By: Campos Lee on 10-27-2022 Lymphocytes/100 WBC (Bld)42.1 %.[facility] LimaMCH Auto (RBC) [Entitic mass]Ordered By: Campos Lee on 03-44-8863EYA (RBC) [Entitic mass]30.5 pg27.5-35.2FFisher-Titus Medical CenterMCHC Auto (RBC) [Mass/Vol]Ordered By: Campos Lee on 39-67-1363OGDK (RBC) [Mass/Vol]34.3 g/dL32.5-35.6FFisher-Titus Medical CenterMCV Auto (RBC) [Entitic vol]Ordered By: Campos Lee on 34-21-5410DYJ (RBC) [Entitic vol]88.7 fL83.5-101S[facility] Hospital LimaMonocytes Auto (Bld) [#/Vol]Ordered By: Campos Lee on 52-59-8372Gzlpwckir (Bld) [#/Vol]0.4 10*3/uL0.0-0.8[facility] LimaMonocytes/100 WBC Auto (Bld)Ordered By: Campos Lee on 00-66-4507Rnybzjrau/100 WBC (Bld)7.5 %. [facility] LimaNeutrophils Auto (Bld) [#/Vol]Ordered By: Campos Lee on 26-39-0527Pgxmphqjach (Bld) [#/Vol]2.3 10*3/uL1.8-7.7FFisher-Titus Medical CenterNeutrophils/100 WBC Auto (Bld)Ordered By: Campos Lee on 91-65-3925Dxunvmsmqfw/100 WBC (Bld)45.0 %.[facility] LimaNo Panel InformationOrdered By: Campos Lee on 61-34-3671Yotcgnym Creatinine Clearance (ChemN/AFFisher-Titus Medical CenterNucleated erythrocytes [Presence] in Blood by Automated countOrdered By: Campos Lee on 10-27-2022 Nucleated RBC Auto Ql (Bld)0.0 /100{WBC}0-0.5FFisher-Titus Medical Center Platelet mean volume Auto (Bld) [Entitic vol]Ordered By: Campos Lee on 33-88-6129Zfsdvudp mean volume (Bld) [Entitic vol]8.9 fL6.6-10.1FFisher-Titus Medical CenterPlatelets [#/volume] in Blood by Automated countOrdered By: Campos Lee on 82-07-6483Kolnhwawt (Bld) [#/Vol]241 10*3/hL762-487MhlanzphyScci Hospital LimaPotassium [Moles/volume] in Serum or PlasmaOrdered By: Campos Lee on 12-86-3431Zcjunenez [Moles/Vol]4.1 mmol/L3.5-5.1FFisher-Titus Medical CenterProtein [Mass/volume] in Serum or PlasmaOrdered By: Campos Lee on 45-94-1384Kgzrmev [Mass/Vol]7.4 g/dL6.4-8.9[facility] Serum or plasma albumin/globulin mass ratioOrdered By: Campos Lee on 10-27-2022 Albumin/Globulin [Mass ratio]2.2 {ratio}[facility]uscarawas Hospitalerum or plasma anion gap determinationOrdered By: Campos Lee on 43-44-0605Acdes gap [Moles/Vol]10.5 mmol/L6.0-15.0Tuscarawas Hospitalerum or plasma high density lipoprotein (HDL) cholesterol measurementOrdered By: Campos Lee on 66-25-0971Txihralcoyf in HDL [Mass/Vol]42 mg/iP59-28UpbfzjjghScci Hospital LimaComment on above:HDL CHOL ATP-III CLASSIFICATION Cardiovascular RiskHDL > or equal to 60 mg/dL LOWHDL < 40 mg/dL HIGHSerum or plasma total cholesterol/high density lipoprotein (HDL) cholesterol mass ratOrdered By: Campos Lee on 28-74-4392Zjcrwthtgfo.total/Cholesterol in HDL [Mass ratio]3.9 {ratio} <5.0Tuscarawas Hospitalodium [Moles/volume] in Serum or Plasma Ordered By: Campos Lee on 28-74-6108Vmvphj [Moles/Vol]141 mmol/O065-090AkklkwktyScci Hospital LimaThyroid Stimulating Hormoneon 45-33-8499AGX Qn 0.66212932109 m[IU]/LNormal0.45-5.33 u[iU]/[facility] HospitalmVakil - [facility] [employer] Other Thyrotropin [Units/volume] in Serum or PlasmaOrdered By: Campos Lee on 79-72-8063XRZ Qn0.85 m[IU]/L0.45-5.33[facility] Hospital LimaThyroxine (T4) free [Mass/volume] in Serum or PlasmaOrdered By: Campos Lee on 67-56-6985Cyqj T4 [Mass/Vol]0.92 ng/dL0.61-1.12[facility] LimaTriglyceride [Mass/volume] in Serum or PlasmaOrdered By: Campos Lee on 90-22-5955Bpcagobcrtxs [Mass/Vol]56 mg/dL0-149S[facility] LimaComment on above:TRIG ATP III CLASSIFICATIONTRIG less than 150 mg/dL NormalTRIG 150-199 mg/dL Borderline highTRIG 200-500 mg/dL High TRIG greater than 500 mg/dL Very highStandard traceable to the Center for Disease Conrtrol and Prevention (CDC) test method.Urea nitrogen [Mass/volume] in Serum or Plasma Ordered By: Campos Lee on 54-19-8162Xqii nitrogen [Mass/Vol]13 mg/dL7-25 [facility] LimaVitamin D 25 Hydroxy Totalon 45-38-4333Oytfcfb D 25 Hydroxy Total10.0 ng/gLCtp13-732 ng/mLNresearch psychiatric center [employer] Other Vitamin D+Metabolites [Mass/volume] in Serum or Plasma Ordered By: Campos Lee on 24-70-0135Jggficu D+Metabolites [Mass/Vol]10.0 ng/mL 30-100[facility] LimaComment on above:VITAMIN D STATUS 25(OH)VITAMIN D RANGE (ng/mL) Deficient <20 Insufficient 20 to <69Gtqgaxdqvt69 to 100Reference: Travon MF,[place] NC, Stanley WEEMS, et al. Evaluation,treatment, and prevention of vitamin D deficiency; an Endocrine Society clinical practice guideline. JCEM. 2010; 96(7):1911-30.WBC Auto (Bld) [#/Vol]Ordered By: Campos Lee on 32-12-8426YYD (Bld) [#/Vol]5.2 10*3/uL 4.1-10.5FFisher-Titus Medical CenterEEG awake & asleepon 21-79-9204GCE awake & asleepGreen Cross Hospital [employer] Other eeg awake & asleepFRLutheran Hospital [employer] Other eeg awake & cwxazl[address] [facility] [employer] Other eeg awake & asleepSand[place]idlersaba, [place] [address]Blo[place] [employer] Other eeg awake & asleepElectroencephalogram ReportRegional Hospital For Respiratory And Complex Care [employer] Other eeg awake & asleepDraYakima Valley [facility] [employer] Other eeg awake & asleepPatient: Shy Hardwick MR#: [id number] [employer] Other eeg awake & qclafd4Jjprn [employer] Other eeg awake & asleepDOB: 2000 Acct:[id number] [employer] Other eeg awake & asleepAge/Sex: 21 / M ADM Date: 12/12/21 [place] [employer] Other eeg awake & asleepLoc: EL Room: Type: [facility] [employer] Other eeg awake & asleepAttending Dr: Campos Lee [facility] [employer] Other eeg awake & asleepOrdering Provider: Campos Lee, [place] [employer] Other eeg awake & asleepDate of Service: 12/12/21[place] [employer] Other eeg awake & asleepAccession #: ([id number]) EEG/EEG awake asleep: Dizziness;Family history of seizureSparrows Point [employer] Other eeg awake & asleepdisorder;Blurred vision,[employer] Other eeg awake & asleepCopies to:[employer] Other eeg awake & asleepCLINICAL HISTORY: This is a 21-year-old male who had an event of dizziness and was seen in [facility] [employer] Other eeg awake & asleepemergency room. He has had intermittent dizziness on and off for the last couple of months. He hadNort [employer] Other eeg awake & asleepsome blurred vision and was treated for sinusitis. The patient does have a family history ofSparrows Point [employer] Other eeg awake & asleepseizure. He was having some trembling in his hands.[employer] Other eeg awake & asleepMEDICATIONS: Prednisone.[employer] Other eeg awake & asleepTECHNICAL SUMMARY: A 20-channel routine EEG was performed utilizing bipolar and monopolar runs.[employer] Other eeg awake & asleepThe patient was described as alert and oriented x4. Has a history of alcohol and drug use. A 9-10Nort [employer] Other eeg awake & asleepHz dominant occipital rhythm was identified. This rhythm did react to eye opening and closingNomercy hospital washington [employer] Other eeg awake & asleepdriving response. Hyperventilation was a fair effort, but added no new features to this recording.[employer] Other eeg awake & asleepThere were no spikes, sharp waves or paroxysmal activity. The patient did become minimally drowsyNort [employer] Other eeg awake & asleepduring the recording, but did not transition into stage II sleep architecture. The lunchroom monitor wasNoTransLattice Other eeg awake & asleepin normal sinus rhythm.[employer] Other eeg awake & asleepIMPRESSION: This is a normal EEG for the patient's stated age. The underlying rhythm was withinNomercy hospital washington [employer] Other EEZ awake & asleepnormal limits. There were no focal, lateralizing, or hemispheric features, and no evidence of epilNorth [employer] Other eeg awake & asleepeptiform activity. Please correlate clinically.Its[employer] Other eeg awake & asleepTranscribed By: JENNIFER 12/13/21 1338 [employer] Other eeg awake & asleepDictated By: Jayla Mahajan DO 12/12/21 1514[facility] [employer] Other eeg awake & asleepSigned By:[employer] Other Vital Signs Date TimeVital SignValuePerforming UnnkqpcezFwcurbua00-04-4414 08:57-0400Body rqfjzy213.26 cmCampos Isagens DO Work Phone: [facility]10-31-2025 08:57-0400 Body mass index (BMI) [Ratio]28.8 kg/v9Vexzq Isagens DO Work Phone: [facility]10-31-2025 08:57-0400 Body ikqbbu85.45 kgBryan Isagens DO Work Phone: [facility]09-22-2025 11:00-0400 Body .26 cmCampos Isagens DO Work Phone: [facility]09-22-2025 11:00-0400 Body mass index (BMI) [Ratio]27.3 kg/v9Yrsho Isagens DO Work Phone: [facility]09-22-2025 11:00-0400 Body faimqu08.91 kgCampos Lee DO Work Phone: [facility]09-22-2025 11:00-0400 Diastolic blood upvppkrt74 mm[Hg]Campos Lee DO Work Phone: [facility]09-22-2025 11:00-0400 Heart rate66 /minCampos Lee DO Work Phone: [facility]09-22-2025 11:00-0400 Respiratory rate18 /minCampos Lee DO Work Phone: [facility]09-22-2025 11:00-0400 SaO2% (BldA) [Mass fraction]97 %Campos Lee DO Work Phone: [facility]09-22-2025 11:00-0400 Systolic blood rwllpywp428 mm[Hg]Campos Lee DO Work Phone: [facility]09-05-2025 10:44-0400 Body mass index (BMI) [Ratio]27.54 kg/b6LmyfcinDoug Goodwin CHILD LIFE ASSISTANT Work Phone: [phone] HospitalRktkhbpxci09-02-6369 10:44-0400Body temperature 98.49 [degF]Doug Goodwin CHILD LIFE ASSISTANT Work Phone: [phone] [place] [address]-05-2025 10:44-0400Body cpobch26.6 kg Doug Goodwin CHILD LIFE ASSISTANT Work Phone: [phone] [address]Vxikkhxehz93-15-7088 10:44-0400Diastolic blood gvubrwpn87 mm[Hg]Doug Goodwin CHILD LIFE ASSISTANT Work Phone: [phone] [address]Kiwoxjaqvo77-21-1829 10:44-0400Heart rate88 /min Doug Goodwin CHILD LIFE ASSISTANT Work Phone: [phone] [address]Foaranvtxz11-97-3053 10:44-0400Respiratory rate20 /minDoug Goodwin CHILD LIFE ASSISTANT Work Phone: [place] [address]Dbgfbomhrx86-39-9513 10:44-5618MlN5% (BldA) [Mass fraction]98 %Doug Goodwin CHILD LIFE ASSISTANT Work Phone: [facility] HospitalRdfjyronqs22-19-7438 10:44-0400Systolic blood vkwwknvu150 mm[Hg]Doug Goodwin CHILD LIFE ASSISTANT Work Phone: [facility] HospitalMuawcgdkak65-39-9070 09:00-0400Body .26 cmCampos Oteros DO Work Phone: [phone] [place], [place] 0061608-22-2025 09:00-0400 Body mass index (BMI) [Ratio]27.3 kg/p3FcxcxCampos Oteros DO Work Phone: [phone])[address]08-22-2025 09:00-0400 Body jmyqvs03.91 kgBrygarfield Oteros DO Work Phone: [phone])[address] [place], [place] 1246308-22-2025 09:00-0400 Diastolic blood mm[Hg]Campos Brandens DO Work Phone: 1(437)0-[address] [place], [place] 006[address]08-22-2025 09:00-0400 Heart rate68 /minCampos Oteros DO Work Phone: 1(725)5-[address] [place], [place] 006[address]08-22-2025 09:00-0400 Respiratory rate16 /minCampos Oteros DO Work Phone: [phone])[address]08-22-2025 09:00-0400 SaO2% (BldA) [Mass fraction]96 %Camposgarfield Oteros DO Work Phone: [phone] [place], [place] 0061608-22-2025 09:00-0400 Systolic blood zlqqknuv657 mm[Hg]Campos Brandens DO Work Phone: [phone])092-[address] [place], [place] 0061606-24-2025 12:46-0400 Diastolic blood cqbzjqny63 mm[Hg]Campos Brandens DO Work Phone: [phone]06-24-2025 12:46-0400 Heart rate82 /minSamuelan Brandens DO Work Phone: 1(324)244-[address] [place], [place] 0061606-24-2025 12:46-0400 Respiratory rate16 /minCampos Lee DO Work Phone: [facility]06-24-2025 12:46-0400 SaO2% (BldA) [Mass fraction]99 %Campos Lee DO Work Phone: [facility]06-24-2025 12:46-0400 Systolic blood lxmhmbii017 mm[Hg]Campos Lee DO Work Phone: [facility]06-20-2025 09:09-0400 Body .3 cmPaul Biedenbach DO Work Phone: [facility] HospitalNbfnkewbcg76-26-8792 09:09-0400Body mass index (BMI) [Ratio]27.32 kg/m2Paul Biedenbach DO Work Phone: [facility] HospitalOlkcpynxnr41-88-8190 09:09-0400Body qjikfm78.92 kgPaul Biedenbach DO Work Phone: [facility] HospitalHgkrmantwr60-86-1504 14:10-0400Body xxbtyx713.26 cmCampos Lee DO Work Phone: [facility]06-16-2025 14:10-0400 Body vdjhhe08.91 kgSamuelan Brandens DO Work Phone: [facility]06-02-2025 08:45-0400 Body qoczri659.3 cmPaul Biedenbach DO Work Phone: [facility] HospitalHcpxtumdct44-41-1040 08:45-0400Body mass index (BMI) [Ratio]27.32 kg/m2Paul Biedenbach DO Work Phone: [facility] HospitalYfixjiibrw03-88-3459 08:45-0400Body .92 kgPaul Biedenbach DO Work Phone: [facility] HospitalYtcglvfjks11-51-6224 09:27-0400Body .64 cmCampos Oteros DO Work Phone: 1(333)768-[address] [place], [place] 0061605-30-2025 09:27-0400 Body mass index (BMI) [Ratio]29.8 kg/i1HzfctCampos Oteros DO Work Phone: 1(311)[address]05-30-2025 09:27-0400 Body .91 kgCampos Oteros DO Work Phone: 1(414)[address]05-30-2025 09:27-0400 Diastolic blood xrxatoyq72 mm[Hg]Campos Brandens DO Work Phone: 1(193)[address]05-30-2025 09:27-0400 Heart rate73 /minCampos Oteros DO Work Phone: 1(101)[address] [place], [place] 1246305-30-2025 09:27-0400 Systolic blood ifnxycdw728 mm[Hg]Campos Brandens DO Work Phone: 1(585)[address] [place], [place] 1246305-09-2025 09:01-0400 Body rubmev957.64 cmCampos Oteros DO Work Phone: 1(486)[address]05-09-2025 09:01-0400 Body mass index (BMI) [Ratio]30.7 kg/g0SzgnfCampos Oteros DO Work Phone: 1(595)[address] [place], [place] 1246305-09-2025 09:01-0400 Body httejx73.18 kgCampos Lee DO Work Phone: 1(413)[address]05-09-2025 09:01-0400 Diastolic blood mqiydjdf37 mm[Hg]Campos Oteros DO Work Phone: [phone])[address]05-09-2025 09:01-0400 Heart rate88 /minCampos Oteros DO Work Phone: 1(352)[address]05-09-2025 09:01-0400 Respiratory rate16 /minCampos Oteros DO Work Phone: 1(317)[address]05-09-2025 09:01-0400 SaO2% (BldA) [Mass fraction]96 %Campos Lee DO Work Phone: [facility]05-09-2025 09:01-0400 Systolic blood rpxoqrxg433 mm[Hg]Campos Lee DO Work Phone: [facility]04-23-2025 08:43-0400 Body parenv263.3 cmAngela Lowe PA Work Phone: [facility] HospitalHwugpaiwgk28-00-2521 08:43-0400Body mass index (BMI) [Ratio]28.06 kg/n5Gpbftk Lowe PA Work Phone: [facility] HospitalIcazqowmzg43-11-6347 08:43-0400Body lapdts28.18 kgAngela Lowe PA Work Phone: [facility] HospitalVicxzfvjsr56-58-4059 08:43-0400Diastolic blood mm[Hg]Nalini Lowe PA Work Phone: [facility] HospitalPxckymsogq80-39-1254 08:43-0400Systolic blood npkxnkey288 mm[Hg]Nalini Lowe PA Work Phone: [facility] HospitalLofaaiewcz86-39-2978 10:21-0500Body lfwsxo898.64 cmCampos Oteros DO Work Phone: [facility]03-03-2025 10:21-0500 Body mass index (BMI) [Ratio]29.9 kg/e0Clcgj Kuns DO Work Phone: [facility]03-03-2025 10:21-0500 Body kefrsk25.36 kgCampos Oteros DO Work Phone: [facility]03-03-2025 10:21-0500 Diastolic blood irxtrtlb73 mm[Hg]Campos Jesus DO Work Phone: [facility]03-03-2025 10:21-0500 Heart rate70 /minSamuelgarfield Oteros DO Work Phone: [facility]03-03-2025 10:21-0500 Respiratory rate16 /minSamuelan Brandens DO Work Phone: [facility]03-03-2025 10:21-0500 SaO2% (BldA) [Mass fraction]96 %Campos Oteros DO Work Phone: [facility]03-03-2025 10:21-0500 Systolic blood izzlgjkj798 mm[Hg]Campos Brandens DO Work Phone: [address] [place], [place] 0182401-27-2025 10:20-0500 Body pmgwos985.64 cmCampos Oteros DO Work Phone: 0(428)8-[address] [place], [place] 0061601-27-2025 10:20-0500 Body mass index (BMI) [Ratio]30.9 kg/x0CbjraCampos Oteros DO Work Phone: 9(309)[address]01-27-2025 10:20-0500 Body uhghsy35.08 kgCampos Oteros DO Work Phone: 1(578)1-[address] [place], [place] 0061601-27-2025 10:20-0500 Diastolic blood mm[Hg]Campos Oteros DO Work Phone: 9(216)430-[address] [place], [place] 0061601-27-2025 10:20-0500 Heart rate72 /minCampso Oteros DO Work Phone: [phone])[address] [place], [place] 0061601-27-2025 10:20-0500 Respiratory rate16 /minSamuelan Brandens DO Work Phone: 9(607)5-[address] [place], [place] 0061601-27-2025 10:20-0500 SaO2% (BldA) [Mass fraction]99 %Campos Oteros DO Work Phone: [phone]01-27-2025 10:20-0500 Systolic blood wxyupbeb137 mm[Hg]Campos Brandens DO Work Phone: 2(557)0-[address] [place], [place] 0061601-22-2025 11:55-0500 Body .3 cmAngela Lowe PA Work Phone: [facility] HospitalQimyybvrxd18-85-1216 11:55-0500Body mass index (BMI) [Ratio]28.5 kg/l2Xieavw Lowe PA Work Phone: [facility] HospitalWaxscthzvw94-61-2660 11:55-0500Body mkbtmy22.54 kgAngela Lowe PA Work Phone: [facility] HospitalEjaliazsnf42-37-6306 11:55-0500Diastolic blood geqerufg30 mm[Hg]Nalini Lowe PA Work Phone: [facility] HospitalXmpldhmojn70-82-2994 11:55-0500Systolic blood mm[Hg]Nalini Lowe PA Work Phone: [facility] [phone] 12:03-0500Body cakgdc614.64 cmBryan Kuns DO Work Phone: [facility]01-02-2025 12:03-0500 Body mass index (BMI) [Ratio]30.8 kg/p2Axlmz Kuns DO Work Phone: [phone] [place], [place] [address]1601-02-2025 12:03-0500 Body wpsqqu06.63 kgBryan Kuns DO Work Phone: [facility]12-11-2024 10:42-0500 Body zlazec235.91 cmBryan Kuns DO Work Phone: [facility]12-11-2024 10:42-0500 Body mass index (BMI) [Ratio]30 kg/n9Sjnbl Kuns DO Work Phone: [facility]12-11-2024 10:42-0500 Body gesell28.72 kgBryan Kuns DO Work Phone: [facility]12-11-2024 10:42-0500 Diastolic blood cuhcijrk46 mm[Hg]Campos Kuns DO Work Phone: [facility]12-11-2024 10:42-0500 Heart rate62 /minBryan Kuns DO Work Phone: [facility]12-11-2024 10:42-0500 Respiratory rate16 /Tanisha Lee DO Work Phone: [facility]12-11-2024 10:42-0500 SaO2% (BldA) [Mass fraction]98 %Campos Lee DO Work Phone: [facility]12-11-2024 10:42-0500 Systolic blood lvvaxdml297 mm[Hg]Campos Lee DO Work Phone: [facility]11-15-2024 10:05-0500 Body zyukyy112.91 cmS[facility] [place]11-15-2024 10:05-0500Body mass index (BMI) [Ratio]29.7 kg/l1GoqnvtvljS[facility]11-15-2024 10:05-0500Body uwkzsl54.82 kgS[facility] [place]11-15-2024 10:05-0500Diastolic blood mlhoruiv54 mm[Hg][facility] 06-23-2024 10:05-0500Heart rate67 /[facility] 06-23-2024 10:05-0500Respiratory rate16 /[facility] 06-23-2024 10:05-2886CoP3% (BldA) [Mass fraction]97 %[facility]11-15-2024 10:05-0500Systolic blood dxeysolg132 mm[Hg][facility]11-14-2024 10:17-0500Body .3 Jose F PAIZ Work Phone: [facility] [phone] 10:17-0500Body mass index (BMI) [Ratio]27.91 kg/m2Shannon PAIZ Work Phone: [facility] [phone] 10:17-0500Body fhiway54.73 kgShannon PAIZ Work Phone: [phone] 10:17-0500Diastolic blood jwmikmvu19 mm[Hg]Shannon Hill PA Work Phone: [facility] HospitalWscobosfbo56-38-7542 10:17-0500Heart rate61 /min Shannon Santoyo PA Work Phone: [facility] HospitalSfywchpjxf53-67-4730 10:17-0500Respiratory rate16 /minShannon Santoyo PA Work Phone: [facility] HospitalFlfgfkdqgz92-58-9863 10:17-8654YmQ1% (BldA) [Mass fraction]99 %Shannon Santoyo PA Work Phone: [place] [address]Abwrawkgxx20-26-2354 10:17-0500Systolic blood fvbfejtw747 mm[Hg]Shannon Santoyo PA Work Phone: [facility] HospitalTlpjdvicvy59-07-9243 11:20-0400Body sicjjm749.3 cmAfrancisca Santoyo PA Work Phone: [facility] HospitalUfdbgfytcn65-44-0510 11:20-0400Body mass index (BMI) [Ratio]27.62 kg/m2Shannon Santoyo PA Work Phone: [facility] HospitalOprhvxbwlf63-51-9763 11:20-0400Body .82 kgShannon Santoyo PA Work Phone: [facility] HospitalDargmzxwzj95-02-0928 11:20-0400Diastolic blood mm[Hg]Shannon Santoyo PA Work Phone: [facility] HospitalUdaoggopbx21-24-3048 11:20-0400Heart rate69 /min Shannon Santoyo PA Work Phone: [facility] HospitalNhrxhiiudc09-45-9842 11:20-0400Respiratory rate16 /minShannon Santoyo PA Work Phone: [facility] HospitalGxmmbsihgg50-95-9491 11:20-5985UxD9% (BldA) [Mass fraction]99 %Shannon Santoyo PA Work Phone: [facility] HospitalOfgtxbyval99-25-9794 11:20-0400Systolic blood rhlimbye454 mm[Hg]Shannon Santoyo PA Work Phone: [facility] HospitalXpfkbbdxem74-11-4557 10:41-0400Body aqnluf143.3 cmAngela Lowe PA Work Phone: [facility] HospitalSavtyuxvol24-93-4665 10:41-0400Body mass index (BMI) [Ratio]26.29 kg/v8Mtluxp Lowe PA Work Phone: [facility] HospitalLkyoinnnhi38-32-2042 10:41-0400Body epkqvw43.74 kgAngela Lowe PA Work Phone: [facility] HospitalZkafosifln56-15-6297 10:41-0400Diastolic blood mm[Hg]Nalini Lowe PA Work Phone: [facility] HospitalMvknyetejh30-06-5535 10:41-0400Systolic blood yfqvpzya801 mm[Hg]Nalini Lowe PA Work Phone: [facility] HospitalHreymgzdoq11-38-6999 10:03-0400Body smuuii549.3 cmAngela Lowe PA Work Phone: [facility] HospitalNxaavakzxz85-62-0382 10:03-0400Body mass index (BMI) [Ratio]26.49 kg/e4Oibvpz Lowe PA Work Phone: [facility] HospitalTfpdroogvy74-29-0172 10:03-0400Body fpouux69.38 kgAngela Lowe PA Work Phone: [facility] HospitalJawazyuelz38-69-9412 10:03-0400Diastolic blood ccjdmrot22 mm[Hg]Nalini Lowe PA Work Phone: [facility] HospitalTyqgdsxctm78-94-8969 10:03-0400Heart rate72 /min Nalini Lowe PA Work Phone: [facility] HospitalAplhwppude92-38-4036 10:03-8134HzJ0% (BldA) [Mass fraction]98 %Nalini Lowe PA Work Phone: [facility] HospitalFeogtyxjhm57-91-1667 10:030400Systolic blood bojxbwlp292 mm[Hg]Nalini Lowe PA Work Phone: [facility] HospitalDzltiujrbk96-80-4055 10:46-0400Body hjzefu522.91 cmDO Campos Lee Work Phone: [facility]04-24-2024 10:46-0400 Body mass index (BMI) [Ratio]26.6 kg/m2DO Campos Lee Work Phone: [facility]04-24-2024 10:46-0400 Body flrfyh53.2 kgDO Campos Lee Work Phone: [facility]04-24-2024 10:46-0400 Diastolic blood htbfahka40 mm[Hg]DO Campos Lee Work Phone: [facility]04-24-2024 10:46-0400 Heart rate62 /Alejandro Lee Work Phone: [facility]04-24-2024 10:46-0400 Respiratory rate16 /Alejandro Lee Work Phone: [facility]04-24-2024 10:46-0400 SaO2% (BldA) [Mass fraction]98 %DO Campos Lee Work Phone: [facility]04-24-2024 10:46-0400 Systolic blood aqfnelgl077 mm[Hg]DO Campos Lee Work Phone: [facility]03-20-2024 11:03-0400 Body aqbiun691.91 cmDO Campos Lee Work Phone: [facility]03-20-2024 11:03-0400 Body mass index (BMI) [Ratio]26.2 kg/m2DO Campos Lee Work Phone: [facility]03-20-2024 11:03-0400 Body rwqsjyqsfao66.1 [degF]DO Campos Lee Work Phone: [facility]03-20-2024 11:03-0400 Body .84 kgDO Campos Lee Work Phone: [facility]03-20-2024 11:03-0400 Diastolic blood iyvekpvz76 mm[Hg]DO Campos Lee Work Phone: [facility]03-20-2024 11:03-0400 Heart rate63 /minDO Campos Lee Work Phone: [facility]03-20-2024 11:03-0400 SaO2% (BldA) [Mass fraction]98 %DO Campos Lee Work Phone: [facility]03-20-2024 11:03-0400 Systolic blood bzyefuei841 mm[Hg]DO Campos Lee Work Phone: [facility]09-19-2023 13:30-0400 Body .91 cmCampos Lee Other [employer] Other 09-19-2023 13:30-0400Body mass index (BMI) [Ratio] 27.66 kg/b2HyyhxCampos Lee Other [employer] Other 09-19-2023 13:30-0400Body yxmlgu11.93 kgCampos Lee Other [employer] Other 09-19-2023 13:30-0400Diastolic blood rzyfrgyv84 mm[Hg] Campos Lee Other [employer] Other 09-19-2023 13:30-0400Respiratory rate16 /minCampos Lee Other [employer] Other 09-19-2023 13:30-2125PjN5% (BldA) [Mass fraction]98 % Campos Lee Other [employer] Other 09-19-2023 13:30-0400Systolic blood vnfwvzpa767 mm[Hg] Campos Lee Other [facility] [employer] Other [id number] 01:21-0400Diastolic blood myefimar28 mm[Hg] DO Campos Lee Work Phone: [facility]03-28-2023 01:21-0400 Heart rate76 /minDO Campos Lee Work Phone: [facility]03-28-2023 01:21-0400 Respiratory rate16 /AlexO Campos Lee Work Phone: [facility]03-28-2023 01:21-0400 SaO2% (BldA) [Mass fraction]98 %DO Campos Lee Work Phone: [facility]03-28-2023 01:21-0400 Systolic blood nyxljsam788 mm[Hg]DO Campos Lee Work Phone: [facility]03-27-2023 21:46-0400 Body .26 cmDO Campos Lee Work Phone: [facility]03-27-2023 21:46-0400 Body sxrkpwaqbtg17.7 [degF]DO Campos Lee Work Phone: [facility]03-27-2023 21:46-0400 Body lsxyre86 kgDO Campos Lee Work Phone: [facility]03-17-2023 08:30-0400 Body .91 cmCampos Lee Other [facility] [employer] Other 03-17-2023 08:30-0400Body mass index (BMI) [Ratio]26.9 kg/q8JfuidCampos Lee Other [facility] [employer] Other 03-17-2023 08:30-0400Body wyehdh83.75 kgCampos Lee Other [employer] Other 03-17-2023 08:30-0400Diastolic blood ilnysntq90 mm[Hg] Campos Oter[place]au Other [employer] Other 03-17-2023 08:30-0400Respiratory rate16 /minCampos Lee Other [employer] Other 03-17-2023 08:30-3497PtE4% (BldA) [Mass fraction]99 % Campos Lee Other [employer] Other 03-17-2023 08:30-0400Systolic blood qzcidlsg026 mm[Hg] Campos Lee Other [employer] Other 12-28-2022 10:00-0500Body hjjujc555.91 cmSamuelgarfeild Oteroesau Other [employer] Other 12-28-2022 10:00-0500Body mass index (BMI) [Ratio] 27.25 kg/p4YuldtCampos Lee Other [employer] Other 12-28-2022 10:00-0500Body wvofco74.75 kgSamuelgarfield Lee Other [employer] Other 12-28-2022 10:00-0500Diastolic blood jmcsqsiw10 mm[Hg] Campos Lee Other [employer] Other 12-28-2022 10:00-0500Respiratory rate16 /minCampos Lee Other [employer] Other 12-28-2022 10:00-5739TjP5% (BldA) [Mass fraction]98 % Camposgarfield Oteroesau Other [employer] Other 12-28-2022 10:00-0500Systolic blood voszcfrg424 mm[Hg] Campos Lee Other [employer] Other 11-28-2022 08:30-0500Body ezrbox804.91 cmCampos Brandenesau Other [employer] Other 11-28-2022 08:30-0500Body mass index (BMI) [Ratio] 26.61 kg/s6BgynbCampos Lee Other [employer] Other 11-28-2022 08:30-0500Body hyunsv07.93 kgSamuelgarfield Lee Other [employer] Other 11-28-2022 08:30-0500Diastolic blood mm[Hg] Campos Lee Other [employer] Other 11-28-2022 08:30-0500Respiratory rate16 /minCampos Lee Other [employer] Other 11-28-2022 08:30-5210IiJ7% (BldA) [Mass fraction]99 % Campos Lee Other [employer] Other 11-28-2022 08:30-0500Systolic blood sgovlxzg043 mm[Hg] Campos Lee Other [employer] Other 07-27-2022 11:00-0400Body uqjiif843.91 cmSamuelgarfield Oteroesau Other [employer] Other 07-27-2022 11:00-0400Body mass index (BMI) [Ratio] 27.34 kg/x7Soopn Brandenesau Other [employer] Other 07-27-2022 11:00-0400Body .02 kgSamuelgarfield Lee Other [employer] Other 07-27-2022 11:00-0400Diastolic blood cegizbkx18 mm[Hg] Campos Lee Other [employer] Other 07-27-2022 11:00-0400Respiratory rate16 /minBrygarfield Lee Other [employer] Other 07-27-2022 11:00-8944QyP1% (BldA) [Mass fraction]99 % Campos Lee Other [employer] Other 07-27-2022 11:00-0400Systolic blood vmwjwzli139 mm[Hg] Campos Lee Other [employer] Other 06-06-2022 11:15-0400Body wpcobk337.91 cmCampos Lee Other [employer] Other 06-06-2022 11:15-0400Body mass index (BMI) [Ratio] 27.82 kg/a3QcsenCampos Lee Other [employer] Other 06-06-2022 11:15-0400Body kptlvy56.38 kgBrygarfield Lee Other [employer] Other 06-06-2022 11:15-0400Diastolic blood hockqdai77 mm[Hg] Campos Jesus Other [employer] Other 06-06-2022 11:15-0400Respiratory rate18 /minCampos Lee Other [employer] Other 06-06-2022 11:15-6433KzK1% (BldA) [Mass fraction]98 % Campos Lee Other [employer] Other 06-06-2022 11:15-0400Systolic blood hmfscuxd680 mm[Hg] Campos Lee Other [employer] Other 05-09-2022 10:00-0400Body xkogqt955.91 cmCampos Lee Other [employer] Other 05-09-2022 10:00-0400Body mass index (BMI) [Ratio] 27.06 kg/w1HdemsCampos Lee Other [employer] Other 05-09-2022 10:00-0400Body axqlye26.2 kgSamuelgarfield Jesus Other [employer] Other 05-09-2022 10:00-0400Diastolic blood nvyjdrdj99 mm[Hg] Campos Lee Other [employer] Other 05-09-2022 10:00-0400Respiratory rate18 /minCampos Lee Other [employer] Other 05-09-2022 10:00-4371MxP8% (BldA) [Mass fraction]99 % Campos Lee Other [employer] Other 05-09-2022 10:00-0400Systolic blood mm[Hg] Camposgarfield Lee Other [employer] Other 05-03-2022 14:15-0400Body stdtwy424.91 cmCampos Lee Other [employer] Other 05-03-2022 14:15-0400Body mass index (BMI) [Ratio]26.9 kg/d2RlwgkCampos Lee Other [employer] Other 05-03-2022 14:15-0400Body oyfctn73.75 kgCampos Lee Other [employer] Other 05-03-2022 14:15-0400Diastolic blood cmlwnulo92 mm[Hg] Campos Lee Other [employer] Other 05-03-2022 14:15-0400Respiratory rate18 /minCampos Lee Other [employer] Other 05-03-2022 14:15-3144ReP6% (BldA) [Mass fraction]99 % Campos Lee Other [employer] Other 05-03-2022 14:15-0400Systolic blood oilcndzx838 mm[Hg] Camposgarfield Oter[place]au Other [employer] Other 11-12-2021 18:15-0500Body jsnlyf254.91 cmAmber Ginty Other [employer] Other 11-12-2021 18:15-0500Body mass index (BMI) [Ratio] 25.44 kg/m2Kqnjr Ginty Other [employer] Other 11-12-2021 18:15-0500Body idyhoc26.58 kgAmber Ginty Other [employer] Other 11-12-2021 18:15-0500Diastolic blood srvcyxlj75 mm[Hg] Carmencita Ginty Other [employer] Other 11-12-2021 18:15-0500Respiratory rate16 /minAmber Ginty Other [employer] Other 11-12-2021 18:15-8953LgZ3% (BldA) [Mass fraction]100 % Carmencita Ginty Other [employer] Other 11-12-2021 18:15-0500Systolic blood bqxzebhj503 mm[Hg] Carmencita Ginty Other [employer] Other Encounters Encounter DateEncounter TypeCare ProviderFacilityStart: 06-08-2025 End: 37-62-2728pvxrggeennMymfu Kuns DO Work Phone: [phone]-Ofxvnlhre Health GastroStart: 06-08-2025 End: 15-22-1015Jiwifsr encounter procedureCatherine Gabo Hylton DO-[facility] Work Phone: Start: 04-30-2025 End: 02-18-7696kvaovekowkCdldm Kuns DO Work Phone: [facility] Work Phone: Start: 04-30-2025 End: 92-80-1072Pjrivha encounter procedureCampos Candelario DO-[facility] Work Phone: Start: 04-13-2025 End: 02-79-6722Nldnuu outpatient visit 25 minutesDoug Goodwin NP Work Phone: [facility] CareComment on above:COVID-19 (Primary Dx); Cough, unspecified type; Pharyngitis, unspecified etiologyStart: 04-13-2025 End: 14-80-9612scientnhdlSTLZMKV N AUSTINNot AvailableStart: 03-30-2025 End: 85-44-8153hqawzguqovCowbl Kuns DO Work Phone: [facility] Work Phone: Start: 03-30-2025 End: 52-27-3414Sfnlvbb encounter procedureCampos Candelario [facility] Work Phone: Start: 49-06-1926Eou-patient / Non-visitJessica Pinellas A-[facility] G[facility] Work Phone: Start: 01-30-2025 End: 92-56-2757jrmblhdjujBivrkeabq L LyFacility:[facility] Hospitaltart: 10-43-3169Buc-patient / Non-visitCatherine L Ly DO-[facility] Work Phone: Start: 01-26-2025 End: 46-48-8655Igchsu flowsheetPaul S Biedenbach DO Work Phone: [facility] ENT SANDUSKYStart: 01-26-2025 End: 11-53-9633Doekjv flowsheetPaul S Biedenbach DO Work Phone: [facility] SANDUSKYStart: 01-26-2025 End: 67-51-2099Jgwqvu outpatient visit 25 minutesPaul S Biedenbach DO Work Phone: [facility] E[facility] SANDUSKYComment on above:Migraine without status migrainosus, not intractable, unspecified migraine type (Primary Dx); Chronic sinusitis, unspecified location; VertigoStart: 01-26-2025 End: 56-31-7585wxplspuiiaKDXR S BIEDENBACHNot AvailableStart: 01-12-2025 End: 34-92-6515aiilxmbsxoCXUZ S BIEDENBACHNot AvailableStart: 01-08-2025 End: 77-21-2793Vmxfep flowsheetPaul S Biedenbach DO Work Phone: [facility] SANDUSKYStart: 01-08-2025 End: 15-44-4149Fhjoyx flowsheetPaul S Biedenbach DO Work Phone: [facility] SANDUSKYStart: 01-08-2025 End: 01-94-8978Adnuvo outpatient new 45 minutesPaul S Biedenbach DO Work Phone: [facility] ENT SANDUSKYComment on above:Chronic sinusitis, unspecified location (Primary Dx); Migraine without status migrainosus, not intractable, unspecified migraine type (CMS/HCC); VertigoStart: 01-08-2025 End: 11-55-0329wjvtxkkwprMJFV S BIEDENBACHNot AvailableStart: 01-05-2025 End: 02-99-3949kcboacxtbbZqmpi Brandens DO Work Phone: [facility] Work Phone: Start: 01-05-2025 End: 02-71-0747Zdqtmtp encounter procedureBryan Kuns DO Work Phone: [facility] Work Phone: Start: 12-20-2024 End: 48-17-1366Qegdlj flowsSatinder Samaniego [facility] Work Phone: noms AUDStart: 12-20-2024 End: 12-12-5298Tamuib flowsheetDeborah A Zain CCC-A Work Phone: [facility] CI AUDStart: 12-20-2024 End: 24-36-1276Qdvrawlj SupportDetiara Samaniego CCC-A Work Phone: [facility] CI AUDComment on above:Vertigo (Primary Dx); Plugged feeling in ear, bilateralStart: 12-15-2024 End: 45-06-2189muwsoikecbLbvxg Brandens DO Work Phone: [facility] Work Phone: Start: 12-15-2024 End: 12-65-1051Qhqqpav encounter procedureCampos Lee DO Work Phone: [facility] Work Phone: Start: 11-29-2024 End: 70-19-5669Srbsev flowsheetAngela Lowe PA Work Phone: aNA BELLEVUEStart: 11-29-2024 End: 31-14-4193Emyczg flowsheetAngela Lowe PA Work Phone: aNA BELLEVUEStart: 11-29-2024 End: 90-61-7991Amswnm outpatient visit 25 minutesAngela Lowe PA Work Phone: aNA BELLEVUEComment on above:Migraine without status migrainosus, not intractable, unspecified migraine type (CMS/HCC) (Primary Dx); Vertigo; Hypersomnia; Neck pain; Shift work sleep disorder; Shifting sleep-work schedule, affecting sleepStart: 11-29-2024 End: 45-45-2914mnjothormqSYETPJ LOWENot AvailableStart: 10-09-2024 End: 44-31-3979jwhgmpfjwvKmrhy Brandens DO Work Phone: [facility] Work Phone: Start: 10-09-2024 End: 15-16-3288Ntvbgsh encounter procedureCampos Lee DO Work Phone: [facility] Work Phone: Start: 09-06-2024 End: 24-38-2304Xxwioic encounter procedureCampos Lee DO Work Phone: [facility]trStart: 09-06-2024 End: 11-25-4710xezvxijlksRxuxs Brandens DO Work Phone: [facility] Work Phone: Start: 09-04-2024 End: 02-69-4905hcpdvffdipDuvcf Brandens DO Work Phone: [facility] Work Phone: Start: 09-04-2024 End: 80-47-7880Rntggcp encounter procedureSamuelgarfield Lee DO Work Phone: [facility] Physician [facility] Work Phone: Start: 08-30-2024 End: 29-28-0217Krbpwf flowsheetAngela Lowe PA Work Phone: ana BELLEVUEStart: 08-30-2024 End: 64-23-5467Qggswc flowsheetAngela Lowe PA Work Phone: ana BELLEVUEStart: 08-30-2024 End: 47-22-3708Sormjb outpatient visit 25 minutesAngela Lowe PA Work Phone: aNA BELLEVUEComment on above:Migraine without status migrainosus, not intractable, unspecified migraine type (CMS/HCC) (Primary Dx); Dizziness; Neck pain; Balance problemStart: 08-30-2024 End: 87-76-0800dulgnzeslrEBWSAF LOWENot AvailableStart: 08-10-2024 End: 27-06-4068ifakeqtrubQzfol Kuns DO Work Phone: [facility] Work Phone: Start: 08-10-2024 End: 77-59-0287Tmdvihf encounter procedureBrygarfield Oteros DO Work Phone: [facility]Former[facility] Work Phone: Start: 08-07-2024 End: 30-08-8709Ahybwoprvd RecurringBrygarfield Oteros DO Work Phone: [facility] Start: 59-44-2430Sxbbjjnnya RecurringBrygarfield Lee DO Work Phone: [facility] Start: 08-07-2024 End: 71-72-1802lzfhiyjnunPfsou Brandens DO Work Phone: [facility] Work Phone: Start: 07-19-2024 End: 42-10-5330Oqrlhgs encounter procedureBrygarfield Oteros DO Work Phone: [facility] Work Phone: Start: 07-11-2024 End: 17-49-7273Hjnwjsv encounter procedureBrygarfield Lee DO Work Phone: [facility] Start: 07-11-2024 End: 23-45-7642jgzrzjbsfcZlpz C HillFacility:[facility] Start: 07-04-2024 End: 04-02-1176Arnaruy encounter procedureBrygarfield Oteros DO Work Phone: [facility] [place] Work Phone: Start: 07-04-2024 End: 25-83-1448pbtsvmabqyIkvky KunsFacility:[facility] Start: 06-30-2024 End: 77-51-7176Qrodozs encounter procedureBrygarfield Oteros DO Work Phone: [facility] [place] Work Phone: Start: 06-30-2024 End: 41-51-2745gfstplzpgpWkczz KunsFacility:[facility] Start: 06-23-2024 End: 48-02-4057xftucmmeefPlmnvqfvqEast [facility] Work Phone: Start: 06-23-2024 End: 73-27-7438Gkiwfzf encounter procedureNov[facility] [place] Work Phone: Start: 06-22-2024 End: 58-92-4857Dwfcvd Deion PAIZ Work Phone: [facility] NEUROLOGYStart: 06-22-2024 End: 50-18-6799Bzdxga Deion PAIZ Work Phone: [facility] NEUROLOGYStart: 06-22-2024 End: 98-61-1722Ihnuss outpatient visit 25 minutesShannon PAIZ Work Phone: [facility] NEUROLOGYComment on above:Migraine without status migrainosus, not intractable, unspecified migraine type (CMS/HCC) (Primary Dx); Depressed mood; Dizziness; Hypersomnia; Balance problemStart: 06-22-2024 End: 83-60-4878zqaiixmyaaJIIS HILLNot AvailableStart: 05-25-2024 End: 99-30-1163Mmishj Deion PAIZ Work Phone: [facility] NEUROLOGYStart: 05-25-2024 End: 21-47-6319Vaxdjv Deion PAIZ Work Phone: [facility] NEUROLOGYStart: 05-25-2024 End: 62-42-9725Ebvyhd outpatient visit 25 minutesShannon PAIZ Work Phone: [facility]OM[facility] NEUROLOGYComment on above:Migraine without status migrainosus, not intractable, unspecified migraine type (CMS/HCC) (Primary Dx)Start: 05-25-2024 End: 32-77-3939szkbsnhjloBNKX HILLNot AvailableStart: 05-10-2024 End: 76-74-8637Kqmaro Lester PAIZ Work Phone: [facility] R[facility]TEStart: 05-10-2024 End: 63-28-9386Rglrjb flowsheetAngela Lowe PA Work Phone: [facility] R[facility]TEStart: 05-10-2024 End: 71-33-2566Vrqvkk outpatient visit 25 minutesAngela Lowe PA Work Phone: [facility] ROUTEComment on above:Migraine without status migrainosus, not intractable, unspecified migraine type (CMS/HCC) (Primary Dx)Start: 05-10-2024 End: 75-24-9736jctzyfqjqzZWKWUX LOWENot AvailableStart: 03-29-2024 End: 39-78-0333Hkluif flowsheetAngela Lowe PA Work Phone: [facility] NEUROLOGYStart: 03-29-2024 End: 35-05-4434Czqrtc flowsheetAngela Lowe PA Work Phone: [facility] NEUROLOGYStart: 03-29-2024 End: 32-90-2994Wwzizq outpatient visit 25 minutesAngela Lowe PA Work Phone: [facility] ST NEUROLOGYComment on above:Dizziness (Primary Dx); Migraine without status migrainosus, not intractable, unspecified migraine type (CMS/HCC)Start: 03-11-2024 End: 95-27-6039Qumzswbfr Result EncounterAngela Lowe PA Work Phone: n[facility] External Department UnsolicitedStart: 03-11-2024 End: 97-95-6329Fdswfxjie Result EncounterAngela Lowe PA Work Phone: n[facility] External Department UnsolicitedStart: 12-01-2023 End: 76-54-5741veafcdqzgqIL Campos Lee Work Phone: [facility] Work Phone: Start: 12-01-2023 End: 83-53-9734Cfvrqpa encounter procedureDO Campos Lee Work Phone: [facility] Work Phone: Start: 11-22-2023 End: 72-12-8503leqiothjrmBG Campos Lee Work Phone: [facility] Work Phone: Start: 11-22-2023 End: 61-05-4709Fwyernr encounter procedureDO Campos Lee Work Phone: [facility] [place] Work Phone: Start: 10-27-2023 End: 89-32-0846rtlzgyagrlQB Campos Lee Work Phone: [facility] Work Phone: Start: 10-27-2023 End: 67-17-7797Msluinq encounter procedureDO Campos Lee Work Phone: [facility] Work Phone: Start: 10-25-2023 End: 74-82-1644ozzhejbcbdOY Campos Lee Work Phone: [facility] Work Phone: Start: 10-25-2023 End: 50-77-3000Ydgqaop encounter procedureDO Campos Lee Work Phone: [facility] [place] Work Phone: Start: 06-23-2023 End: 71-88-3535gqrkacgsxxMegur Kuns Other [employer] Other Start: 47-77-7972Uefdhjwul encounterCampos Webber [facility]pontiac general hospitalaStart: 04-27-2023 End: 98-09-0909eecdpfiklaVaqvf Kuns Other [employer] Other Start: 80-79-2224Pjpnyk outpatient visit 25 minutes Campos Webber [facility] CastaliaStart: 11-03-2022 End: 90-97-1766gsaovggrtbZscuj Kuns Other [employer] Other Start: 58-84-5251Ukzzzweti encounterCampos Webber [facility] CastaliaStart: 11-02-2022 End: 81-19-8335Qdjxtusjh department patient visitDO Campos Lee Work Phone: [facility] Work Phone: Start: 10-27-2022 End: 95-24-3439klybxgowteXM Campos Lee Work Phone: [facility] Work Phone: Start: 10-27-2022 End: 63-46-1471Zvftqyy encounter procedureDO Campos Lee Work Phone: [facility] [place] Work Phone: Start: 10-23-2022 End: 83-88-1081dxdflfbijmHcpyl Kuns Other [employer] Other Start: 23-88-2975Dntanp outpatient visit 25 minutes Campos Webber [facility] CastaliaStart: 08-05-2022 End: 15-44-8351qmjbjqxbicUhnep Kuns Other [employer] Other Start: 68-26-9365Ndjpqg outpatient visit 15 minutes Campos Webber [facility] CastaliaStart: 07-06-2022 End: 57-02-7627rshppbkupwDxpal Kuns Other [employer] Other Start: 82-52-6559Xabywi outpatient visit 15 minutes Campos Webber [facility] CastaliaStart: 04-01-2022 End: 23-19-1812Cztpawa encounter procedureDO Campos Kuns Work Phone: [facility] LabStart: 03-04-2022 End: 69-78-4008bcqjkjdiknQxbpy Brandens Other [employer] Other Start: 53-25-3984Pdpieu outpatient visit 15 minutes Campos BrandenRachaelCally Family Medicine CastaliaStart: 02-13-2022 End: 92-40-3895abgfkcoqepEbfmf Kuns Other [employer] Other Start: 11-67-4685Mvbspgxsd encounterBrygarfield GeeG [facility] CastaliaStart: 01-12-2022 End: 48-38-3552xwapanlhalKywwn Kuns Other [employer] Other Start: 32-63-8033[place] outpatient visit 25 minutes Campos BrandenRachaelG Family Medicine CastaliaStart: 12-29-2021 End: 86-99-6992gowlrfpkdyDfxkj Kuns Other [employer] Other Start: 86-00-5361Ayygacfuf encounterBrygarfield [facility] CastaliaStart: 12-15-2021 End: 91-72-4018bwvlizvjqzLchot Kuns Other noAff[facility] [employer] Other Start: 87-89-9173Fzwobu outpatient visit 25 minutes Campos [facility] CastaliaStart: 27-63-8532Bibotuuux encounterBrygrafield LeeFPG [facility] CastaliaStart: 12-09-2021 End: 82-29-7026hgpmexjanhXioij Kuns Other noOpen[employer] Other Start: 41-52-0926Rqambk outpatient visit 25 minutes Camposgarfield [facility]FP[facility] CastaliaStart: 80-93-1542Jekznfbwd encounterBrygarfield [facility] CastaliaStart: 12-03-2021 End: 08-42-0887ugjbhpkmupSxlqo Kuns Other nort [employer] Other Start: 88-66-9573Ojvguwyoj encounterBrygarfield [facility] CastaliaStart: 06-20-2021 End: 40-89-5505zfkdxiavutKcorp Angie Other [facility] [employer] Other Start: 99-84-7165Ahlmww outpatient visit 15 minutes Carmencita OmarsabaGINOCally Urgent Care Reliance RoadStart: 11-18-2020 End: 06-43-7313Yijmwua encounter procedureBrygarfield Jesus-CT Scan Main [place] Procedures DateProcedureProcedure DetailPerforming ClinicianStart: 74-37-8815Gwchs streptococcus group a amplified probe tqDoug Goodwin CHILD LIFE ASSISTANT Work Phone: Start: 60-24-2918Pama-cov-2 detection by dna/rna Doug Goodwin CHILD LIFE ASSISTANT Work Phone: Start: 78-37-8395HPTQEJMJ FUNCTION TESTSJade Samaniego [facility] Work Phone: start: 29-80-8759N-ray of cervical spineBryan Brandens DO Work Phone: Start: 68-11-1042D-ray of left footBryan Brandens DO Work Phone: Start: 21-57-6543YZ HEAD/BRAIN WO Jaden PAIZ Work Phone: Start: 27-86-6635YT of head with contrastBrygarfield Lee Start: 75-99-8541Jqgsx x-ray of pelvis and lower extremityBrygarfield KunsStart: 69-20-3793M-ray of lumbar spine, four or more viewsBrygarfield Lee Plan of Treatment DateCare ActivityDetailAuthorStart: 07-27-2025 End: 85-76-8749Tkwafdd encounter procedureNOMS ENT SANDUSKYStart: 07-20-2025 End: 73-59-9783TL Maxillofacial region WO and W contrast IVCT maxillofacial wo IV contrast Imaging Routine Chronic sinusitis, unspecified location Expected: , Expires: 07/28/2025[facility] Work Phone: comment on above:Expected: 07/20/2025, Expires: 07/28/2025Start: 79-59-0478VkxwbgviuTuscarawas Hospitaltart: 01-26-2025 End: 91-76-6792Itfbxkg encounter qbwbakefo34/20/2025 9:15 AM EDT Office Visit [facility] PFE[facility]FFER [address] [place] [phone] Curtis Musa DO [address] [place] [address] ArrivedNOMS ENT SANDUSKYComment on above:ArrivedStart: 01-23-2025 End: 96-21-6738Wdnrycg encounter iwyhyyngo20/17/2025 8:40 AM EDT Office Visit DAVI HANNAH [address] [place] [address] Shannon Santoyo PA [address] [place] [address] DAVI TRONCOSOtart: 01-08-2025 End: 49-00-0153Rvvvrkv encounter procedureNOMS ENT SANDUSKYComment on above: Migraine without status migrainosus, not intractable, unspecified migraine type (CMS/HCC); VertigoStart: 12-20-2024 End: 26-82-1738Wnvwadzh Pgvwzxf5612/20/2024 1:00 PM EDT Clinical Support [facility] [address] [place] [phone] Jade Samaniego, [facility] [address] [place] [address] ArrivedNO CI AUDComment on above:ArrivedStart: 11-29-2024 End: 56-09-3870Luoyvvp encounter xumrqwtdb13/23/2025 8:40 AM EDT Office Visit DAVI HANNAH [address] [place] [address] Nalini Asif PA [address] [place] [address] ArrivedDAVI BRIELLEComment on above:ArrivedStart: 10-09-2024 [facility]: 09-51-2923Rlazpmjsrd factor [Units/volume] in Serum or PlasmaTuscarawas Hospitaltart: 57-59-4725BlqvjsyesTuscarawas Hospitaltart: 08-30-2024 End: 47-87-5303Batodtn encounter procedureNOMS HANNAH STATE ROUTEComment on above:ArrivedStart: 06-22-2024 End: 21-26-8559Olspmeq encounter xyqmaiuum19/14/2024 10:20 AM EST Office Visit [facility] [address] [facility] [address] [place] [phone] Shannon Santoyo PA [address] [place] [address] NEUROLOGYStart: 05-25-2024 End: 05-86-6872Guopjcr encounter procedureNOMS ST NEUROLOGYComment on above: ArrivedStart: 05-24-2024 End: 01-96-4295Hnyifjk encounter nbbfzclox63/16/2024 10:00 AM EDT Office Visit [facility] [address] [facility] [address] [place] [phone] Nalini Asif PA [address] [place] [address] NEUROLOGYStart: 05-10-2024 End: 32-61-1307Gtlqhhl encounter myqeafdld87/02/2024 10:40 AM EDT Office Visit [facility] [place] [address] [place] [address] Nalini Asif PA [address] [place] [address] ArrivedNOUNIVERSITY HOSPITALS HEALTH SYSTEM ROUTEComment on above:ArrivedComprehensive metabolic 1999 panel - Serum or PlasmaScci Hospital LimaComprehensive metabolic 1999 panel - Serum or Plasma [facility] LimaCT Abdomen and Pelvis WO and W contrast IV [facility] LimaCT Abdomen and Pelvis WO and W contrast IV [facility] LimaHomogenous nuclear Ab pattern [Titer] in Serum [facility] LimaNuclear Ab [Titer] in SerumScci Hospital LimaPatient EducationGastritis - Discharge instructions [facility] Diverticulosis Discharge Instructions [facility] Hemorrhoids Discharge Instructions Know your Meds [facility] Colon Polypectomy Discharge Instructions [facility] Work Phone: Patient referralWilson Health Work Phone: Testosterone Free [Mass/volume] in Serum or Plasma [facility] LimaXR Cervical spine 5 [facility] - left GE 3 [facility] Immunizations Immunization DateImmunizationNotesCare VidzvcgvEsyvgfkn09-39-7136xafdfrs toxoid, reduced diphtheria toxoid, and acellular pertussis vaccine, adsorbedScci Hospital Lima03-14-2017meningococcal B vaccine, recombinant, OMV, adjuvantedScci Hospital Lima02-07-2017Human Papillomavirus 9- valent vaccineScci Hospital Lima02-07-2017meningococcal B vaccine, recombinant, OMV, adjuvantedScci Hospital Lima10-11-2016 Human Papillomavirus 9-valent vaccineScci Hospital Lima08-02-2016 hepatitis A vaccine, pediatric/adolescent dosage, 2 dose scheduleScci Hospital Lima08-02-2016Human Papillomavirus 9-valent vaccineScci Hospital Lima08-02-2016meningococcal oligosaccharide (groups A, C, Y and W-135) diphtheria toxoid conjugate vaccine (MCV4O)[facility]08-11-2011hepatitis A vaccine, pediatric/adolescent dosage, 2 dose scheduleScci Hospital Lima08-11-2011meningococcal polysaccharide (groups A, C, Y and W-135) diphtheria toxoid conjugate vaccine (MCV4P)[facility]08-11-2011tetanus toxoid, reduced diphtheria toxoid, and acellular pertussis vaccine, adsorbedScci Hospital Lima08-20-2004 diphtheria, tetanus toxoids and acellular pertussis vaccine, unspecified formulationScci Hospital Lima08-20-2004measles, mumps and rubella virus vaccineScci Hospital Lima08-20-2004poliovirus vaccine, inactivatedScci Hospital Lima10-30-2000diphtheria, tetanus toxoids and acellular pertussis vaccine, unspecified formulationScci Hospital Lima10-30-2000haemophilus influenzae type b vaccine, conjugate unspecified formulationScci Hospital Lima10-30-2000 hepatitis B vaccine, pediatric or pediatric/adolescent dosageScci Hospital Lima10-30-2000measles, mumps and rubella virus vaccineScci Hospital Lima06-14-2000poliovirus vaccine, unspecified formulation [facility]03-10-2000diphtheria, tetanus toxoids and acellular pertussis vaccine, unspecified formulationS[facility] Hospital [facility]ima03-10-2000haemophilus influenzae type b vaccine, conjugate unspecified formulationS[facility] Hospital [facility]ima01-10-2000diphtheria, tetanus toxoids and acellular pertussis vaccine, unspecified formulationS[facility] Hospital Lima01-10-2000haemophilus influenzae type b vaccine, conjugate unspecified formulationS[facility] Hospital [facility]ima01-10-2000 hepatitis B vaccine, pediatric or pediatric/adolescent dosageScci Hospital Lima01-10-2000poliovirus vaccine, unspecified formulationScci Hospital Lima1999diphtheria, tetanus toxoids and acellular pertussis vaccine, unspecified formulationS[facility] Hospital [facility]ima 47-37-7645cxeimuggxsf influenzae type b vaccine, conjugate unspecified formulationScci Hospital Lima1999hepatitis B vaccine, pediatric or pediatric/adolescent dosageScci Hospital Lima 84-00-3101jqfzsmbyax vaccine, unspecified formulationScci Hospital Lima Payers DatePayer CategoryPayerPolicy [id number] Cross Blue Shield [id number] BCBS [id number] 2023-[facility] [phone] [address] [place] [address] [id number] 32fi9b28-86l9-130p-we0y-639j383598is46-31-1688Veawawf74366767 2.0.1.733309.3.579.2.[id number] 2.0.1.059612.3.579.2.388757-18-6327Yvivurg37163556 2.0.1.284976.3.579.2.022825-25-7605Tcjcsuz0466193 2.0.1.098806.3.579.2.362483-35-0099Lfztwxo5434355 2.0.1.435460.3.579.2.925898-52-4099Ngybmdq7347653 2.0.1.411118.3.579.2.819863-37-6663Saweafd4752143 2.840.1.575355.3.579.2.961138-29-3657Khxbmgv3355083 2.0.1.821369.3.579.2.800261-60-3976Ujaehht2707767 .1.602000.3.579.2.268655-04-0714Bjkfxkl1913073 ..1.988941.3.579.2.1259Blue Cross Blue [id number] .[id number] tjz97dg3-u08i-7cl1-384o-hwp554x483wi [id number] x670kg73-27ip-3zxy-69i7-ut20t8s94u32GftwdnoZZ2136169 083q6228-49ts-4o23-py0s-[id number] 2v6v818n-52g3-1s3p-454s-i51f45391t89LqhgdyaQdlzkr /MMswr755o74919 0i34z72d-2977-3n49-h89q-2255cu527162Nfqygqh66273063 .1.211505.3.579.2.473Cawclkx56559074 ..1.635792.3.579.2.531 Isnvdhk85184272 .1.152397.3.579.2.770Papowdp93909997 .1.134454.3.579.2.730Qfnzhds45888435 .1.396728.3.579.2.531 Vqnzrni33396116 .1.455745.3.579.2.337Tyvydjs66302106 .1.554835.3.579.2.047Selrbvg78644048 .1.553178.3.579.2.531 Social History DateTypeDetailFacilityTobacco smoking status NHISUnknown if ever smokedTrihealth CtrStart: 67-77-6083Awy [facility]igned At [facility] CenterStart: 02-29-2024 End: 86-09-6067Uzs Assigned At [facility] [employer] Other Start: 12-06-2021 End: 21-45-3838Mplenbz smoking status NHISEx-smoker (finding)[facility] CenterStart: 11-03-2022 End: 96-00-5094Rmosdrt smoking status NHISCurrent Light tobacco smokerTrihealth CenterStart: 01-06-2024 End: 00-11-2823Icqpvjk smoking status NHISSmokes tobacco dailyNONM Healthcare History of tobacco useCigarette SmokerNOMS HealthcareStart: 02-29-2024 End: 33-07-8275Mbvtyfbbp beverage intakeLifetime non-drinker (finding)[facility] HealthcareStart: 02-29-2024 End: 31-84-1569Suhooom of Social functionNOMS HealthcareStart: 77-60-1255Fzyjwcw Commentcaffeine intake: 1-2 cups per dayNONM HealthcareStart: 83-68-5544Pxd assigned at [facility] centerNot on fileLDS HOSPITAL HealthcareStart: 06-23-2024 End: 69-94-5814XtsAtha (finding)[facility] CenterStart: 31-11-2581Lklqnzn smoking status NHISSmoker (finding)Trihealth CenterStart: 71-12-0503TqpLneuFNHX Healthcare Goals DatePatient GoalDesired Activity/State Clinical Notes 01-11-2019 to 04-13-2025 Note Date & ZnrrPfpnWqigawqd70-09-3168 History of Present illness Narrative* Doug Goodwin NP - 04/13/2025 10:45 AM EDT Images from the original note were not included. [address], [address] [place], [address] P: [phone] F: [phone] HPI Historian of HPI: patient Shy Hardwick is a 24 y.o. male who presents today to the Urgent Care with the following complaintsand denials which have been present for 5 day(s). C/O Denies Symptom Comments [] [x] Runny Nose [] [x] Difficulty Swallowing [x] [] Sore Throat [x] [] Cough [] [x] Ear Pain [] [x] Fever [] [x] Chills [x] [] Nasal Congestion [] [x] Myalgia [] [x] Sinus Pain [] [x] Sinus Pressure Additional Comments: pt has not taken any OTC medications ROS A complete system ROS was performed and negative aside from the pertinent positives noted in the HPI and PE. Visit Vitals BP 122/78 Pulse 88 Temp 98.5 F Resp 20 Wt 186 lb 8.2 oz SpO2 98% BMI 27.54 kg/m Smoking Status Every Day BSA 2.03 m IH Testing: The following tests were performed PCR Strep Test PCR COVID Test SEE TEST(S) ORDERS FOR RESULTS PHYSICAL EXAM Physical Exam Vitals reviewed. Constitutional: General: He is not in acute distress. Appearance: Normal appearance. HENT: Head: Normocephalic. Nose: Nose normal. Mouth/Throat: Mouth: Mucous membranes are moist. Pharynx: Oropharynx is clear. Eyes: Extraocular Movements: Extraocular movements intact. Conjunctiva/sclera: Conjunctivae normal. Pupils: Pupils are equal, round, and reactive to light. Cardiovascular: Rate and Rhythm: Normal rate and regular rhythm. Pulses: Normal pulses. Heart sounds: Normal heart sounds. Pulmonary: Effort: Pulmonary effort is normal. No respiratory distress. Breath sounds: No wheezing, rhonchi or rales. Musculoskeletal: General: Normal range of motion. Skin: General: Skin is warm and dry. Findings: No rash. Neurological: General: No focal deficit present. Mental Status: He is alert and oriented to person, place, and time. Psychiatric: Mood and Affect: Mood normal. TREATMENT PLAN 1. Cough, unspecified type COVID 19 +. New medication as directed. Acetaminophen or Ibuprofen for reduction of fever and pain.Increase fluids. Good handwashing. Discussed warning signs of worsening infection and when to report to ER. New toothbrush in 24 hours. Call office if symptoms have not started to improve within the next 72 hours. Patient verbalized understanding of instructions. - RAPID DNA COVID 2. Pharyngitis, unspecified etiology Strep negative in urgent care. - STREP DNA PROBE 3. COVID-19 (Primary) Patient notified that they are positive for COVID. They were advised to quarantine at this time for5 days, along with any other family members that live in the same household or close exposure. Theywere also advised that the [facility] will also be notified and they will contact them within the next 24 hours on further quarantine instructions and contact tracing. The patient was educated on that COVID is a viral infection, therefore for mild symptoms, no antibiotics are prescribed. Treatment includes OTC supportive care with fluids, rest, tylenol/motrin, Mucinex, decongestants and antihistamines. If there fever worsens > 104 despite treatment, or they develop shortness of breath, chest pain, chest tightness, blood in sputum or breathlessness then they are to go to the emergency room for further care. Advised on good handwashing, covering cough, sanitizing all surfaces, mask wearing. All questions were answered to the patient's liking. Call PCP in 2-3 days for further questions or instructions in regards to care. Work note provided. documented in this encounterSamaritan HospitalRyfedirsbm40-03-6813 Evaluation note* Author Pennie Gilliland [facility] 2024 9:15amThe above note written by Pennie Gilliland Nitesh acting as human recorder, note dictated by Dr. Campos Lee. Author Malka Brandt [facility] 2024 11:08amSooner if needed, ER if concerns. The above note written by Malka Brandt LPN, acting as human recorder, note dictated by Dr. Campos Lee. [facility] Work Phone: 1(244) 386-215106-20-2025 History of Present illness Narrative* Curtis Musa, - 01/26/2025 9:15 AM EDT Subjective Patient ID: Shy Hardwick is a 24 y.o. male who presents for Sinusitis (CT results) Sinusitis 4-year-old white male presents today for evaluation of chronic nasal congestion, sinus inflammationand uncontrolled migraine. Patient has taken several medications for treatment of migraine cephalgia with very limited improvement. Does have some difficulties with cervical vertigo. Presents today for follow-up of CT scan Previous MRI has revealed inflammation of the sinuses Review of Systems Patient currently not having any pain or fever. Does describe some slight imbalance. No spinning dizziness. No nausea. He does describe improvement of his symptoms when lying down. Denies any shortness of breath. The rest of his review of systems is negative Allergies as of 01/26/2025 - Reviewed 01/26/2025 Allergen Reaction Noted Penicillins 01/05/2024 Past Medical History: Diagnosis Date Migraine headache Mild episode of recurrent major depressive disorder 01/04/2025 Current Outpatient Medications: Ascorbic Acid (VITAMIN C PO), Take by mouth, Disp: , Rfl: Cholecalciferol (VITAMIN D3 PO), Take by mouth, Disp: , Rfl: MAGNESIUM GLYCINATE PO, Take by mouth, Disp: , Rfl: tiZANidine (Zanaflex) 4 MG tablet, 1/2 to 1 tab PO at bedtime for muscle spasm (Patient not taking:Reported on 01/26/2025), Disp: 30 tablet, Rfl: 5 traZODone (Desyrel) 50 MG tablet, Take 1 tablet (50 mg) by mouth at bedtime, Disp: 30 tablet, Rfl: 3 Zavegepant HCl 10 MG/ACT solution, Administer 10 mg into affected nostril(s) Daily as needed (migraine) (Patient not taking: Reported on 01/26/2025), Disp: 8 each, Rfl: 1 History reviewed. No pertinent surgical history. Social History Socioeconomic History Marital status: Unmarried Spouse name: Not on file Number of children: Not on file Years of education: Not on file Highest education level: Not on file Occupational History Not on file Tobacco Use Smoking status: Every Day Types: Cigarettes Smokeless tobacco: Not on file Substance and Sexual Activity Alcohol use: Never Comment: caffeine intake: 1-2 cups per day Drug use: Yes Types: Cocaine Sexual activity: Not on file Other Topics Concern Not on file Social History Narrative Not on file Social Drivers of Health Financial Resource Strain: Not on file Food Insecurity: Not on file Transportation Needs: Not on file Physical Activity: Not on file Stress: Not on file Social Connections: Not on file Intimate Partner Violence: Not on file Housing Stability: Not on file Objective ENT Physical Exam General Examination: General overview: Normal, age-appropriate, no evidence of distress Head: Normocephalic, atraumatic Eyes: Pupils are equally round and reactive to light and accommodation, extraocular muscles are intact Ears: External ear architecture within normal limits, ear canals are patent, tympanic membranes areintact. Nose: External nose unremarkable, nares patent, septum intact, slight deviation of the nasal septumto the right no evidence of congestion. Review of his CT scan reveals evidence of very mild pansinusitis with no evidence of severe infection or opacification. No evidence of drainage or infection Oral cavity: Mucosa moist, no evidence of ulcer, mass, or lesion Throat: Clear Neck/thyroid: Neck supple, full range of motion, no cervical lymphadenopathy, no evidence of thyromegaly Lymph nodes: No cervical lymphadenopathy Skin: Warm and dry, no evidence of suspicious lesions, no rash Heart: No jugular venous distention, point of maximal impulse normal Lungs: Good air movement, no audible wheezing, no shortness of breath Chest: Normal shape and expansion Abdomen: Normal, soft, nontender, nondistended Musculoskeletal: Cervical spine normal, full range of motion Extremities: No clubbing, cyanosis, or edema Peripheral pulses: 2+ radial, 2+ carotid Neurologic: Alert and oriented, cranial nerves 2-12 are grossly intact Psych: Alert and oriented, normal affect, no evidence of distress Assessment/Plan Diagnoses and all orders for this visit: Migraine without status migrainosus, not intractable, unspecified migraine type Comments: I am confident that his headaches and dizziness are secondary to migraine etiology. We will continue current regimen Chronic sinusitis, unspecified location Comments: findings on CT scan are suggestive of very minimal sinus disease. Recommend continuing steroid nasal spray Orders: - CT maxillofacial wo IV contrast; Future Vertigo documented in this encounterSamaritan HospitalHkikgvjiof26-30-5269 History of Present illness Narrative* Curtis Musa DO - 01/08/2025 9:00 AM EDT Subjective Patient ID: Shy Hardwick is a 24 y.o. male who presents for Vertigo (New patient : vertigo, headaches, sinus) HPI 4-year-old white male presents today for evaluation of chronic nasal congestion, sinus inflammationand uncontrolled migraine. Patient has taken several medications for treatment of migraine cephalgia with very limited improvement. Does have some difficulties with cervical vertigo. Presents today for further evaluation and treatment. Previous MRI has revealed inflammation of the sinuses Review of Systems Patient currently not having any pain or fever. Does describe some slight imbalance. No spinning dizziness. No nausea. He does describe improvement of his symptoms when lying down. Denies any shortness of breath. The rest of his review of systems is negative Allergies as of 01/08/2025 - Reviewed 01/08/2025 Allergen Reaction Noted Penicillins 01/05/2024 Past Medical History: Diagnosis Date Migraine headache (CMS/[facility]) Mild episode of recurrent major depressive disorder (HCC) (CMS/HCC) 01/04/2025 Current Outpatient Medications: Ascorbic Acid (VITAMIN C PO), Take by mouth, Disp: , Rfl: Cholecalciferol (VITAMIN D3 PO), Take by mouth, Disp: , Rfl: MAGNESIUM GLYCINATE PO, Take by mouth, Disp: , Rfl: tiZANidine (Zanaflex) 4 MG tablet, 1/2 to 1 tab PO at bedtime for muscle spasm (Patient not taking:Reported on 01/08/2025), Disp: 30 tablet, Rfl: 5 traZODone (Desyrel) 50 MG tablet, Take 1 tablet (50 mg) by mouth at bedtime, Disp: 30 tablet, Rfl: 3 Zavegepant HCl 10 MG/ACT solution, Administer 10 mg into affected nostril(s) Daily as needed (migraine) (Patient not taking: Reported on 01/08/2025), Disp: 8 each, Rfl: 1 History reviewed. No pertinent surgical history. Social History Socioeconomic History Marital status: Unmarried Spouse name: Not on file Number of children: Not on file Years of education: Not on file Highest education level: Not on file Occupational History Not on file Tobacco Use Smoking status: Every Day Types: Cigarettes Smokeless tobacco: Not on file Substance and Sexual Activity Alcohol use: Never Comment: caffeine intake: 1-2 cups per day Drug use: Yes Types: Cocaine Sexual activity: Not on file Other Topics Concern Not on file Social History Narrative Not on file Social Drivers of Health Financial Resource Strain: Not on file Food Insecurity: Not on file Transportation Needs: Not on file Physical Activity: Not on file Stress: Not on file Social Connections: Not on file Intimate Partner Violence: Not on file Housing Stability: Not on file Objective ENT Physical Exam General Examination: General overview: Normal, age-appropriate, no evidence of distress Head: Normocephalic, atraumatic Eyes: Pupils are equally round and reactive to light and accommodation, extraocular muscles are intact Ears: External ear architecture within normal limits, ear canals are patent, tympanic membranes areintact. Nose: External nose unremarkable, nares patent, septum intact, slight deviation of the nasal septumto the right no evidence of congestion. No evidence of drainage or infection Oral cavity: Mucosa moist, no evidence of ulcer, mass, or lesion Throat: Clear Neck/thyroid: Neck supple, full range of motion, no cervical lymphadenopathy, no evidence of thyromegaly Lymph nodes: No cervical lymphadenopathy Skin: Warm and dry, no evidence of suspicious lesions, no rash Heart: No jugular venous distention, point of maximal impulse normal Lungs: Good air movement, no audible wheezing, no shortness of breath Chest: Normal shape and expansion Abdomen: Normal, soft, nontender, nondistended Musculoskeletal: Cervical spine normal, full range of motion Extremities: No clubbing, cyanosis, or edema Peripheral pulses: 2+ radial, 2+ carotid Neurologic: Alert and oriented, cranial nerves 2-12 are grossly intact Psych: Alert and oriented, normal affect, no evidence of distress Assessment/Plan Diagnoses and all orders for this visit: Chronic sinusitis, unspecified location Comments: We will get a CT scan of his sinuses for better delineation of inflammatory changes Migraine without status migrainosus, not intractable, unspecified migraine type (CMS/HCC) Comments: Will start this patient on magnesium and vitamin B2 Orders: - Ambulatory referral to ENT Vertigo Comments: Continue current medications at this time Orders: - Ambulatory referral to ENT documented in this encounterSamaritan [id number] History of Present illness Narrative* Jade Samaniego, CCC-A - 12/20/2024 1:00 PM EDT History: Pt was referred to ENT because of vertigo, onset a couple years ago. Episodes are daily. Sometimes the vertigo only lasts a few seconds. Other times the vertigo lasts a few days. Pt's ears also feel plugged. 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 Otoscopic Exam: Cerumen AU. TM intact AU Pure Tone Audiometry Right Ear: Normal hearing Left Ear: Normal hearing Speech Audiometry Right SRT = 5 dB and word discrimination score at 50 dBHL = 100% Left SRT = 5 dB and word discrimination score at 50 dBHL = 100% Tympanometry Right Ear: Type A tympanogram Left Ear: Type A tympanogram History: Pt here for Hallpike. She states her symptoms are worse on the right side. Hallpike: Head Left: NEGATIVE sit to supine NEGATIVE supine to sit Head Right: NEGATIVE sit to supine NEGATIVE supine to sit documented in this encounterSamaritan [id number] History of Present illness Narrative* IZABEL Ruvalcaba - 11/29/2024 8:40 AM EDT Images from the original note were not included. Subjective Shy Hardwick is a 24 y.o. year old male Chief Complaint Patient presents with Migraine Dizziness Past Medical History: Diagnosis Date Migraine headache ([facility]) History reviewed. No pertinent surgical history. Family History Problem Relation Name Age of Onset Hypertension Mother Migraines Mother Seizures Mother Hypertension Father Seizures Father Social History Tobacco Use Smoking status: Every Day Types: Cigarettes Smokeless tobacco: Not on file Substance Use Topics Alcohol use: Never Comment: caffeine intake: 1-2 cups per day Medication Documentation Review Audit Reviewed by Cari Johnson MA (Transition Specialist) on 11/29/24 at 0844 Medication Order Taking? Sig Documenting Provider Last Dose Status divalproex (Depakote) 250 MG EC tablet [id number] Take 1 tablet (250 mg) by mouth in the morning and 1 tablet (250 mg) before bedtime. Do not crush, chew, or split.. Patient not taking: Reported on 08/30/2024 IZABEL Garcia 09/20/24 2359 tiZANidine (Zanaflex) 4 MG tablet [id number] 1/2 to 1 tab PO at bedtime for muscle spasm IZABEL Ruvalcaba Active Zavegepant HCl 10 MG/ACT solution [id number] Administer 10 mg into affected nostril(s) Daily as needed (migraine) IZABEL Ruvalcaba Active HPI Migraines -started Ajovy at last visit -he is having trouble with insurance -he has not been on any medications -reports migraines are not lasting as long -states he is still having migraines daily -dizziness is pretty constant -meclizine does not help much -word finding difficulty with migraines continues -admits light and sound sensitivity -admits nausea, no vomiting -reports blurred vision at times -states he is not sleeping well -averages 8 hours a night but it is broken -he states he is always tired -he does not feel rested in the morning -he feels like legs and arms feel weak and fatigued -he does have some GI issues and is seeing Gastro next month -he would like a referral to ENT due to sinus issues -he notes that he wakes and his eyes are swollen -he notes that he is trying nasal spray with some benefit -his dizziness persist. Migraine Associated symptoms include fatigue, headaches, neck pain, numbness and weakness. Pertinent negatives include no abdominal pain, chest pain, chills, fever or nausea. ROS Review of Systems Constitutional: Positive for fatigue. Negative for chills and fever. Eyes: Positive for visual disturbance. Respiratory: Negative for chest tightness and shortness of breath. Cardiovascular: Negative for chest pain. Gastrointestinal: Negative for abdominal pain, constipation and nausea. Musculoskeletal: Positive for neck pain and neck stiffness. Neurological: Positive for dizziness, speech difficulty, weakness, light- headedness, numbness and headaches. Negative for tremors, seizures, syncope and facial asymmetry. Psychiatric/Behavioral: Positive for agitation and decreased concentration. Objective Visit Vitals BP 142/86 Ht 5' 9 Wt 190 lb BMI 28.06 kg/m Smoking Status Every Day BSA 2.05 m Heart-RRR Neurological Exam Mental Status Awake, alert and oriented to person, place and time. Oriented to person, place, time and situation.Recent and remote memory are intact. Speech is normal. Language is fluent with no aphasia. Cranial Nerves CN III, IV, : Normal lids and orbits bilaterally. Pupils equal round and reactive to light bilaterally. CN VII: Full and symmetric facial movement. CN VIII: Hearing is normal. CN XI: Shoulder shrug strength is normal. Sensory Light touch is normal in upper and lower extremities. Gait Normal casual, toe, heel and tandem gait. Motor Examination RUE Strength deltoid, biceps, triceps, wrist extensors, wrist extensors, wrist flexor, sex therapist strength 5/5. LUE Strength deltoid, biceps, triceps, wrist extensors, wrist extensors, wrist flexor, sex therapist strength 5/5. RLE Strength illopsoas, quadriceps, tibialis anterior, and gastrocnemius strength 5/5. LLE Strength illopsoas, quadriceps, tibialis anterior, and gastrocnemius strength 5/5. Tone Normal tone x4 extremities. Assessment and Plan Migraine without status migrainosus, not intractable, unspecified migraine type (CMS/HCC) Patient presented with migraines that have been [...] on eletriptan that did not work and caused side effects. Patient stopped taking amitriptyline as [...] has had excellent response to Qulipta but his symptoms persist, though at a lesser degree. He noted issue with insurance and stopped taking this around 03/01/24 and notes improvement in stomach upset and mood. He does not have nausea with Ubrelvy but this is not effective for his symptoms even with redosing. Propranolol caused increase in symptoms. Qulipta was not beneficial. MRI brain 03/11/24 revealed mild chronic sinusitis. He continues with daily headaches and 15+ migraine days per month associated with photophobia, phonophobia and nausea. He feels that he hashad some benefit with the depakote but is having possible side effects with increased dose of weight gain. He ended up stopping this. Ajovy was sent in but he never received and does not want to try at this time. His sleep is distrupted due to changing shifts at work. Dizziness The patient continues with dizziness manifested as [...] MRI of the brain 04/26/23 was unremarkable. Meclizine does provide some benefit. He missed his appts with PT due to being ill and notes he is not able to reschedule as he had the wrong number and was a no show. His dizziness persist. He did report to PT one time and did not return. Hypersomnia Balance problem Vertigo Neck pain Patient notes that he has had increase in neck pain manifested as muscle tightness. He states that this sometimes causes radiation of an ache sensation down his arms. He states that he sleeps in a hunched position which he admits likely doesn't help his symptoms. He denies known injury. He did not present for continued PT after initial visit per patient report. Depressed mood Patient notes changes in mood and not feeling himself for at least the past year. He notes symptoms of depression, difficulties focusing, and feeling disconnected. He is open to seeing psychiatry for further assessment and potential treatment. MOCA 06/22/2024.He saw a psychiatrist and was started on a medication but had side effects of vomiting so he stopped this. He notes that he is seeing psychiatry in [place]. PLAN 1. MRI brain did reveal mild chronic sinusitis and he would like ENT opinion. 2. Trial trazodone 50mg PO at bedtime for sleep which could also help headache prevention if he is getting better quality rest. 3. He notes that he would like to hold on Ajovy for now. 4. Continue Zavzpret for abortive migraine therapy. 5. He did see therapy once and was told it was likely his neck but he has not gone back due to changing work schedule. 6. Continue Zanaflex 4mg 1/2 tab PO at bedtime for muscle spasm/headache prevention. 7. Continue meclizine prn vertigo. 8. He was advised to call for any new or worsening symptoms. Follow up 2-3 months documented in this [facility]03-03-2025 Evaluation note* Author Jasmyn Young [facility] 2024 11:16amThe above note written by BERNABE Aguilera acting as human recorder, note dictated by Dr. Campos Lee. [facility] Work Phone: 1(123) 777-399403-03-2025 Evaluation note* Author Jasmyn Young [facility] 2024 11:16amThe above note written by BERNABE Aguilera acting as human recorder, note dictated by Dr. Campos Lee. Author Pia Evans [facility] 2024 11:18amSooner if needed, the ER if concerns,The above note written by Pia vEans LPN acting as human recorder, note dictated by Dr. Campos Lee [facility] Work Phone: 1([phone]) 938-139501-27-2025 Evaluation note* Author Pennie [facility] 2024 10:29amThe above note written by Pennie KIDD acting as human recorder, note dictated by Dr. Campos Lee. Author Pennie [facility] 2023 10:39amThe above note written by Pennie KIDD acting as human recorder, note dictated by Dr. Campos Lee. Author Jasmyn Young [facility] 2024 10:16amThe above note written by BERNABE Aguilera acting as human recorder, note dictated by Dr. Campos Lee. [facility] Work Phone: 1(890) 627-643701-22-2025 History of Present illness Narrative* IZABEL Ruvalcaba - 08/30/2024 12:00 PM EST Subjective Shy Hardwick is a 24 y.o. year old male Chief Complaint Patient presents with Migraine Dizziness Past Medical History: Diagnosis Date Migraine headache (CMS/HCC) No past surgical history on file. Family History Problem Relation Name Age of Onset Hypertension Mother Migraines Mother Seizures Mother Hypertension Father Seizures Father Social History Tobacco Use Smoking status: Every Day Types: Cigarettes Smokeless tobacco: Not on file Substance Use Topics Alcohol use: Never Comment: caffeine intake: 1-2 cups per day Medication Documentation Review Audit Reviewed by Cari Johnson MA (Transition Specialist) on 08/30/24 at 1155 Medication Order Taking? Sig Documenting Provider Last Dose Status divalproex (Depakote) 250 MG EC tablet [id number] Take 1 tablet (250 mg) by mouth in the morning and 1 tablet (250 mg) before bedtime. Do not crush, chew, or split.. IZABEL Garcia Active fremanezumab (Ajovy) 225 MG/1.5ML auto-injector [id number] Inject 1 pen (225 mg) under the skin every30 (thirty) days IZABEL Garcia Active tiZANidine (Zanaflex) 4 MG tablet [id number] No 1/2 to 1 tab PO at bedtime for muscle spasm IZABEL Ruvalcaba Taking Active Zavegepant HCl 10 MG/ACT solution [id number] Administer 10 mg into affected nostril(s) Daily as needed (migraine) IZABEL Ruvalcaba Active HPI Migraines -decreased Depakote and started Ajovy at last visit -he had to stop Depakote due to SE -he never got Ajovy -reports migraines are not lasting as long -states he is still having migraines daily -mostly in the morning -dizziness when driving to work -used the Zavzpret and this helps -located above the eyes -radiates to temporal -word finding difficulty with migraines continues -admits light and sound sensitivity -admits nausea, no vomiting -reports blurred vision at times -states his sleep is ok -averages 8 hours a night -he does not think he is depressed -referred to psych -he was started on Vilaozdone but this caused vomiting so he stopped -while at working he will start to feel real shaky -reports some muscle weakness in extremities ROS Review of Systems Constitutional: Positive for fatigue. Negative for chills and fever. Eyes: Positive for visual disturbance. Respiratory: Negative for chest tightness and shortness of breath. Cardiovascular: Negative for chest pain. Gastrointestinal: Negative for abdominal pain, constipation and nausea. Musculoskeletal: Positive for neck pain and neck stiffness. Neurological: Positive for dizziness, speech difficulty, weakness, light- headedness, numbness and headaches. Negative for tremors, seizures, syncope and facial asymmetry. Psychiatric/Behavioral: Positive for agitation and decreased concentration. Objective Visit Vitals BP 122/84 Ht 5' 9 Wt 193 lb BMI 28.50 kg/m Smoking Status Every Day BSA 2.06 m Heart-RRR Neurological Exam Mental Status Awake, alert and oriented to person, place and time. Oriented to person, place, time and situation.Recent and remote memory are intact. Speech is normal. Language is fluent with no aphasia. Cranial Nerves CN III, IV, : Normal lids and orbits bilaterally. Pupils equal round and reactive to light bilaterally. CN VII: Full and symmetric facial movement. CN VIII: Hearing is normal. CN XI: Shoulder shrug strength is normal. Sensory Light touch is normal in upper and lower extremities. Gait Normal casual, toe, heel and tandem gait. Motor Examination RUE Strength deltoid, biceps, triceps, wrist extensors, wrist extensors, wrist flexor, sex therapist strength 5/5. LUE Strength deltoid, biceps, triceps, wrist extensors, wrist extensors, wrist flexor, sex therapist strength 5/5. RLE Strength illopsoas, quadriceps, tibialis anterior, and gastrocnemius strength 5/5. LLE Strength illopsoas, quadriceps, tibialis anterior, and gastrocnemius strength 5/5. Tone Normal tone x4 extremities. Assessment and Plan Migraine without status migrainosus, not intractable, unspecified migraine type (CMS/HCC) Patient presented with migraines that have been [...] on eletriptan that did not work and caused side effects. Patient stopped taking amitriptyline as [...] has had excellent response to Qulipta but his symptoms persist, though at a lesser degree. He noted issue with insurance and stopped taking this around 03/01/24 and notes improvement in stomach upset and mood. He does not have nausea with Ubrelvy but this is not effective for his symptoms even with redosing. Propranolol caused increase in symptoms. Qulipta was not beneficial. MRI brain 03/11/24 revealed mild chronic sinusitis. He continues with daily headaches and 15+ migraine days per month associated with photophobia, phonophobia and nausea. He feels that he hashad some benefit with the depakote but is having possible side effects with increased dose. HE ended up stopping this. Ajovy was sent in but he never received. Dizziness The patient continues with dizziness manifested as [...] MRI of the brain 04/26/23 was unremarkable. Meclizine does provide some benefit. He missed his appts with PT due to being ill and notes he is not able to reschedule as he had the wrong number and was a no show. Hypersomnia Balance problem Vertigo Neck pain Patient notes that he has had increase in neck pain manifested as muscle tightness. He states that this sometimes causes radiation of an ache sensation down his arms. He states that he sleeps in a hunched position which he admits likely doesn't help his symptoms. He denies known injury. He is willing to do PT and we will see if [facility] will still accept him. Depressed mood Patient notes changes in mood and not feeling himself for at least the past year. He notes symptoms of depression, difficulties focusing, and feeling disconnected. He is open to seeing psychiatry for further assessment and potential treatment. MOCA 06/22/2024.He saw a psychiatrist and was started on a medication but had side effects of vomiting so he stopped this. PLAN 1. E reviewed with the patient. 2. We will see if [facility] will take the patient considering his no shows. 3. Resend Ajjersonsaba as this was not received by the patient and I do not see a denial in his chart. 4. Continue Zavzpret for abortive migraine therapy. 5. He notes that his company is closing in 2-3 months so he is unsure if he will have insurance at that time. He was advised to call the office if Jess is helping and we could provide samples if available. May need to consider oral medication, generic, such as Topamax if he tolerates. 6. Continue Zanaflex 4mg 1/2 tab PO at bedtime for muscle spasm/headache prevention. 7. Continue meclizine prn vertigo. 8. He was advised to call for any new or worsening symptoms. Follow up 2-3 months documented in this encounterSamaritan [id number] Evaluation note* Author Pia Evans [facility] 2023 12:07pmSooner if needed, the ER if concerns,The above note written by Pia Evans LPN acting as human recorder, note dictated by Dr. Campos Lee Author Pennie Gilliland [facility] 2023 10:39amThe above note written by Pennie KIDD acting as human recorder, note dictated by Dr. Campos Lee. [facility] Work Phone: 1([phone]) 367-503911-15-2024 Evaluation note* Author Pia Evans [facility] 2023 12:07pmSooner if needed, the ER if concerns,The above note written by Pia Evans LPN acting as human recorder, note dictated by Dr. Campos Lee Author Pennie [facility] 2024 10:29amThe above note written by Pennie KIDD acting as human recorder, note dictated by Dr. Campos Lee. Author Pennie [facility] 2023 10:39amThe above note written by Pennie KIDD acting as human recorder, note dictated by Dr. Campos Lee. [facility] Work Phone: 1(602) 387-991011-14-2024 History of Present illness Narrative* IZABEL Garcia - 06/22/2024 10:20 AM EST Subjective Shy Hardwick is a 24 y.o. year old male Chief Complaint Patient presents with Migraine Past Medical History: Diagnosis Date Migraine headache (CMS/HCC) No past surgical history on file. Family History Problem Relation Name Age of Onset Hypertension Mother Migraines Mother Seizures Mother Hypertension Father Seizures Father Social History Tobacco Use Smoking status: Every Day Types: Cigarettes Smokeless tobacco: Not on file Substance Use Topics Alcohol use: Never Comment: caffeine intake: 1-2 cups per day Medication Documentation Review Audit Reviewed by Carmel Villeda MA (Transition Specialist) on 06/22/24 at 1029 Medication Order Taking? Sig Documenting Provider Last Dose Status divalproex (Depakote) 500 MG EC tablet [id number] Take 1 tablet (500 mg) by mouth in the morning and 1 tablet (500 mg) before bedtime. Do not crush, chew, or split.. IZABEL Garcia Active tiZANidine (Zanaflex) 4 MG tablet [id number] No 1/2 to 1 tab PO at bedtime for muscle spasm IZABEL Ruvalcaba Taking Active Zavegepant HCl 10 MG/ACT solution [id number] Administer 10 mg into affected nostril(s) Daily as needed (migraine) IZABEL Ruvalcaba Active HPI Migraines -on Depakote and Zavzpret -increased Depakote at last visit -states he has seen an improvement -reports migraines are not lasting as long -states he is still having migraines them daily -used the Zavzpret twice since last visit -duration varies, average 2 hours -states the come and go frequently throughout the day -located above the eyes -radiates to temporal -described as a lot of pressure -reports dizziness and the sensation of syncope -word finding difficulty with migraines continues -admits light and sound sensitivity -admits nausea, no vomiting -reports blurred vision -states his sleep is ok -averages 8 hours a night -does not wake feeling rested -states he has started not feeling like himself -states he just feels like something is wrong -reports some depression and just feeling down everyday -while at working he will start to feel real shaky -reports some muscle weakness in extremities -he notes he has been having trouble with reflexes, depth perception, dizziness, muscle weakness, fatigue, focusing, disconnected, and conflict. ROS Review of Systems Constitutional: Positive for fatigue. Negative for chills and fever. Eyes: Positive for visual disturbance. Respiratory: Negative for chest tightness and shortness of breath. Cardiovascular: Negative for chest pain. Gastrointestinal: Negative for abdominal pain, constipation and nausea. Musculoskeletal: Positive for neck pain and neck stiffness. Neurological: Positive for dizziness, speech difficulty, weakness, light- headedness, numbness and headaches. Negative for tremors, seizures, syncope and facial asymmetry. Psychiatric/Behavioral: Positive for agitation and decreased concentration. Objective Visit Vitals BP 132/88 Pulse 61 Resp 16 Ht 5' 9 Wt 189 lb SpO2 99% BMI 27.91 kg/m Smoking Status Every Day BSA 2.04 m Heart-RRR Neurological Exam Mental Status Awake, alert and oriented to person, place and time. Oriented to person, place, time and situation.Recent and remote memory are intact. Speech is normal. Language is fluent with no aphasia. Cranial Nerves CN III, IV, : Normal lids and orbits bilaterally. Pupils equal round and reactive to light bilaterally. CN VII: Full and symmetric facial movement. CN VIII: Hearing is normal. CN XI: Shoulder shrug strength is normal. Sensory Light touch is normal in upper and lower extremities. Gait Normal casual, toe, heel and tandem gait. Motor Examination RUE Strength deltoid, biceps, triceps, wrist extensors, wrist extensors, wrist flexor, sex therapist strength 5/5. LUE Strength deltoid, biceps, triceps, wrist extensors, wrist extensors, wrist flexor, sex therapist strength 5/5. RLE Strength illopsoas, quadriceps, tibialis anterior, and gastrocnemius strength 5/5. LLE Strength illopsoas, quadriceps, tibialis anterior, and gastrocnemius strength 5/5. Tone Normal tone x4 extremities. Assessment and Plan Migraine without status migrainosus, not intractable, unspecified migraine type (CMS/HCC) Patient presented with migraines that have been [...] on eletriptan that did not work and caused side effects. Patient stopped taking amitriptyline as [...] has had excellent response to Qulipta but his symptoms persist, though at a lesser degree. He noted issue with insurance and stopped taking this around 03/01/24 and notes improvement in stomach upset and mood. He does not have nausea with Ubrelvy but this is not effective for his symptoms even with redosing. Propranolol caused increase in symptoms. Qulipta was not beneficial. MRI brain 03/11/24 revealed mild chronic sinusitis. He continues with daily headaches and 15+ migraine days per month associated with photophobia, phonophobia and nausea. He feels that he hashad some benefit with the depakote but is having possible side effects with increased dose. Dizziness The patient continues with dizziness manifested as [...] MRI of the brain 04/26/23 was unremarkable. Meclizine does provide some benefit. Hypersomnia Balance problem Vertigo Neck pain Patient notes that he has had increase in neck pain manifested as muscle tightness. He states that this sometimes causes radiation of an ache sensation down his arms. He states that he sleeps in a hunched position which he admits likely doesn't help his symptoms. He denies known injury. He has never done PT for neck pain. He remains on Zanaflex. NEW: Depressed mood Patient notes changes in mood and not feeling himself for at least the past year. He notes symptoms of depression, difficulties focusing, and feeling disconnected. He is open to seeing psychiatry for further assessment and potential treatment. MOCA today . PLAN 1. Decrease depakote back to 250mg PO BID for headache prevention due to potential side effect. 2. I will refer patient to PT for FCE, as he is concerned about being able function at work currently due to his symptoms 3. MOCA today and reviewed with patient 4. Due to his changes in mood and note of depressed mood, I will refer him to psychiatry for evaluation and potential treatment. 5. Start Ajovy for migraine prevention therapy 6. Continue with Zavzpret 10mg nasally for abortive migraine therapy. 7. I counseled the patient on the side effects of medications. 8. Continue Zanaflex 4mg 1/2 tab PO at bedtime for muscle spasm/headache prevention. 9. Continue meclizine prn vertigo. 10. If he doesn't not respond, we will send in medrol dose pack for his symptoms. He does tolerate this and does not tolerate prednisone. 11. Patient to follow up with this clinic in 6-8 weeks or sooner documented in this encounterSamaritan [id number] History of Present illness Narrative* IZABEL Ruvalcaba - 05/10/2024 10:40 AM EDT Subjective Shy Hardwick is a 24 y.o. year old male Chief Complaint Patient presents with Migraine Past Medical History: Diagnosis Date Migraine headache (CMS/HCC) History reviewed. No pertinent surgical history. Family History Problem Relation Name Age of Onset Hypertension Mother Migraines Mother Seizures Mother Hypertension Father Seizures Father Social History Tobacco Use Smoking status: Every Day Types: Cigarettes Smokeless tobacco: Not on file Substance Use Topics Alcohol use: Never Comment: caffeine intake: 1-2 cups per day Medication Documentation Review Audit Reviewed by Cari Johnson MA (Transition Specialist) on 05/10/24 at 1041 Medication Order Taking? Sig Documenting Provider Last Dose Status Atogepant (Qulipta) 60 MG tablet [id number] Take 1 tablet by mouth Daily Patient not taking: Reported on 03/29/2024 IZABEL Ruvalcaba Active propranolol (Inderal) 40 MG tablet [id number] Take 1 tablet (40 mg) by mouth in the morning and 1 tablet (40 mg) before bedtime. IZABEL Ruvalcaba Active tiZANidine (Zanaflex) 4 MG tablet [id number] 1/2 to 1 tab PO at bedtime for muscle spasm IZABEL Ruvalcaba Active HPI Migraines -Started on Propranolol at last visit -he states medication did not help -caused worsening WEEMS and fatigue and weakness -has WEEMS daily -blurred vision -admits auras and floaters -admits light sensitivity and sound sensitivity -admits nausea -denies vomiting -He stopped Ubrelvy this caused worsening issues -states his sleep is ok -he gets about 8-10 hours -he does not feel rested in the morning -he has zoning episodes -where he loses track of time -takes Zanaflex as needed -he is still having some dizziness -off balance -admits to falls ROS Review of Systems Constitutional: Negative for chills and fever. Respiratory: Negative for chest tightness and shortness of breath. Cardiovascular: Negative for chest pain. Gastrointestinal: Negative for abdominal pain, constipation and nausea. Musculoskeletal: Positive for neck pain and neck stiffness. Neurological: Positive for dizziness, light-headedness, numbness and headaches. Negative for tremors, seizures, syncope, facial asymmetry, speech difficulty and weakness. Objective Visit Vitals BP 114/70 Ht 5' 9 Wt 178 lb BMI 26.29 kg/m Smoking Status Every Day BSA 1.98 m Heart-RRR Neurological Exam Mental Status Awake, alert and oriented to person, place and time. Oriented to person, place, time and situation.Recent and remote memory are intact. Speech is normal. Language is fluent with no aphasia. Cranial Nerves CN III, IV, : Normal lids and orbits bilaterally. Pupils equal round and reactive to light bilaterally. CN VII: Full and symmetric facial movement. CN VIII: Hearing is normal. CN XI: Shoulder shrug strength is normal. Motor TTP bilateral cervical paraspinal muscles. Sensory Light touch is normal in upper and lower extremities. Gait Normal casual, toe, heel and tandem gait. Motor Examination RUE Strength deltoid, biceps, triceps, wrist extensors, wrist extensors, wrist flexor, sex therapist strength 5/5. LUE Strength deltoid, biceps, triceps, wrist extensors, wrist extensors, wrist flexor, sex therapist strength 5/5. RLE Strength illopsoas, quadriceps, tibialis anterior, and gastrocnemius strength 5/5. LLE Strength illopsoas, quadriceps, tibialis anterior, and gastrocnemius strength 5/5. Tone Normal tone x4 extremities. Reflexes: RUE biceps reflex 2, LUE biceps reflex 2, RLE knee reflex 2, LLE knee reflex 2, Assessment and Plan Migraine without status migrainosus, not intractable, unspecified migraine type (CMS/HCC) Patient presented with migraines that have been [...] has had excellent response to Qulipta but his symptoms persist, though at a lesser degree. He noted issue with insurance and stopped taking this around 03/01/24 and notes improvement in stomach upset and mood. He does not have nausea with Ubrelvy but this is not effective for his symptoms even with redosing. Propranolol caused increase in symptoms. Qulipta was not beneficial. MRI brain 03/11/24 revealed mild chronic sinusitis. He continues with daily headaches and 15+ migraine days per month associated with photophobia, phonophobia and nausea. Dizziness The patient continues with dizziness manifested as [...] MRI of the brain 04/26/23 was unremarkable. Meclizine does provide some benefit. Hypersomnia Balance problem Vertigo Neck pain Patient notes that he has had increase in neck pain manifested as muscle tightness. He states that this sometimes causes radiation of an ache sensation down his arms. He states that he sleeps in a hunched position which he admits likely doesn't help his symptoms. He denies known injury. He has never done PT for neck pain. He remains on Zanaflex. Plan: 1. Trial Depakote 250mg PO BID For headache prevention. 2. Samples given of Zavzpret 10mg nasally for abortive migraine therapy. 3. I counseled the patient on the side effects of medications. 4. Continue Zanaflex 4mg 1/2 tab PO at bedtime for muscle spasm/headache prevention. 5. Continue meclizine prn vertigo. 6. We will provide a note for him to be off of work to help his migraine improve as he is exposed to loud sounds and digital screens which trigger his symptoms. 7. If he doesn't not respond, we will send in medrol dose pack for his symptoms. He does tolerate this and does not tolerate prednisone. Follow up 2-3 weeks documented in this encounterSamaritan [id number] History of Present illness Narrative* IZABEL Ruvalcaba - 03/29/2024 10:00 AM EDT Subjective Shy Hardwick is a 23 y.o. year old male No chief complaint on file. Past Medical History: Diagnosis Date Migraine headache (CMS/HCC) No past surgical history on file. Family History Problem Relation Name Age of Onset Hypertension Mother Migraines Mother Seizures Mother Hypertension Father Seizures Father Social History Tobacco Use Smoking status: Every Day Types: Cigarettes Smokeless tobacco: Not on file Substance Use Topics Alcohol use: Never Comment: caffeine intake: 1-2 cups per day Medication Documentation Review Audit Reviewed by Juan Neri MA (Transition Specialist) on 03/29/24 at 1006 Medication Order Taking? Sig Documenting Provider Last Dose Status Atogepant (Qulipta) 60 MG tablet [id number] No Take 1 tablet by mouth Daily Patient not taking: Reported on 03/29/2024 IZABEL Ruvalcaba Not Taking Active meclizine (Antivert) 25 MG tablet [id number] Yes Take 25 mg by mouth 3 (three) times a day as needed for dizziness IZABEL Ruvalcaba Taking Active tiZANidine (Zanaflex) 4 MG tablet [id number] Yes 1/2 to 1 tab PO at bedtime for muscle spasm IZABEL Ruvalcaba Taking Active Patient is here today for follow-up of migraines. I am following the plan of care established by Binh who is present in the office today. HPI Migraines -given a medrol pose pack last visit -he states this was a bit helpful -MRI of the brain ordered last visit -he has this completed at [facility] -has WEEMS daily -since he stopped taking qulipta he states they have been a bit better -had a bad migraine yesterday -lasting around 1-2 hours -blurred vision with migraines -reports trailing vision -admits auras and floaters -admits light sensitivity and sound sensitivity -admits nausea -denies vomiting -He has Ubrelvy -he states this dull his migraines -states his sleep is ok -he gets about 8 hours -he denies feeling rested in the morning -started in Zanaflex -he takes this almost nightly -this has helped with his neck pain dizziness -he is still having some dizziness -reports mild everyday -every few months he experiences a severe episode -reports some imbalance -denies recent falls -takes meclizine when severe or when he's about to drive ROS Review of Systems Constitutional: Negative for chills and fever. Respiratory: Negative for chest tightness and shortness of breath. Cardiovascular: Negative for chest pain. Gastrointestinal: Negative for abdominal pain, constipation and nausea. Musculoskeletal: Positive for neck pain and neck stiffness. Neurological: Positive for dizziness, light-headedness, numbness and headaches. Negative for tremors, seizures, syncope, facial asymmetry, speech difficulty and weakness. Objective Visit Vitals BP 118/76 Pulse 72 Ht 5' 9 Wt 179 lb 6.4 oz SpO2 98% BMI 26.49 kg/m Smoking Status Every Day BSA 1.99 m Neurological Exam Mental Status Awake, alert and oriented to person, place and time. Oriented to person, place, time and situation.Recent and remote memory are intact. Speech is normal. Language is fluent with no aphasia. Cranial Nerves CN III, IV, : Normal lids and orbits bilaterally. Pupils equal round and reactive to light bilaterally. CN VII: Full and symmetric facial movement. CN VIII: Hearing is normal. CN XI: Shoulder shrug strength is normal. Motor TTP bilateral cervical paraspinal muscles. Sensory Light touch is normal in upper and lower extremities. Gait Normal casual, toe, heel and tandem gait. Motor Examination RUE Strength deltoid, biceps, triceps, wrist extensors, wrist extensors, wrist flexor, sex therapist strength 5/5. LUE Strength deltoid, biceps, triceps, wrist extensors, wrist extensors, wrist flexor, sex therapist strength 5/5. RLE Strength illopsoas, quadriceps, tibialis anterior, and gastrocnemius strength 5/5. LLE Strength illopsoas, quadriceps, tibialis anterior, and gastrocnemius strength 5/5. Tone Normal tone x4 extremities. Reflexes: RUE biceps reflex 2, LUE biceps reflex 2, RLE knee reflex 2, LLE knee reflex 2, Assessment and Plan Diagnoses and all orders for this visit: Migraine without status migrainosus, not intractable, unspecified migraine type (CMS/HCC) Patient presented with migraines that have been [...] has had excellent response to Qulipta but his symptoms persist, though at a lesser degree. He noted issue with insurance and stopped taking this around 03/01/24 and notes improvement in stomach upset and mood. He does not have nausea with Ubrelvy. MRI brain 03/11/24 revealed mild chronic sinusitis. He continues with daily headaches. Dizziness The patient continues with dizziness manifested as [...] MRI of the brain 04/26/23 was unremarkable. He has benefit with meclizine. Hypersomnia Balance problem Vertigo Neck pain Patient notes that he has had increase in neck pain manifested as muscle tightness. He states that this sometimes causes radiation of an ache sensation down his arms. He states that he sleeps in a hunched position which he admits likely doesn't help his symptoms. He denies known injury. He has never done PT for neck pain. He has benefit with Zanaflex. Plan: 1. MRI brain reviewed with the patient. 2. Trial propranolol 40mg PO daily for headache prevention. 3. I counseled the patient on the side effects of medications. 4. Continue Ubrelvy for abortive therapy. 5. Continue Zanaflex 4mg 1/2 tab PO at bedtime for muscle spasm/headache prevention. 6. Continue meclizine prn vertigo. Follow up 6-8 weeks documented in this encounterSamaritan [id number] Evaluation note* Encounter Date Diagnosis Assessment Notes Treatment Notes Treatment Clinical Notes Apr, Migraine headache (ICD-10 - G43. 909) Pt states he has been doing well with the above medication. I did review his MRI with him, as well as his office notes from [facility]. I encouraged him to continue with them, and with the above medication.We will continue to monitor. Apr,cute pain of both ears (ICD-10 - H92.03) No signs of infection noted in his bilateral ears. I do feel pt is suffering from eustachian tube dysfunction, and advised he would benifit from taking fluticasone daily. This was provided for him today. Apr,Jaw pain (ICD-10 - R68.84) Apr,loudy urine (ICD-10 - R82.90) The above lab performed in house, and the negative result reviewed with the pt. Apr,Vitamin D deficiency (ICD-10 - E55.9) Pt's most recent labs reveal low vitamin D. He states he was told about this, so he did start taking a suppliment for a short period of time, but stopped. I hightly encouraged him to take 2000 U of Vitamin D3 daily. I advised this deficiency could be effecting his overall well being, and he voiced u nderstanding and advised he will start this suppliment. Apr,ysfunction of both eustachian tubes (ICD-10 - H69.93) The above medication provided today. Apr,Elevated LDL cholesterol level (ICD-10 - E78.00) The above labs ordered to monitor. Encouraged to watch diet and increase exercise regimen; we will continue to monitor. [facility] Other 03-17-2023 Evaluation note* Encounter Date Diagnosis Assessment Notes Treatment Notes Treatment Clinical Notes Oct, Migraine headache (ICD-10 - G43. 909) Pt reports feeling antsy and like he needs to keep moving. He is interested in holding off on theEmgality for a while to see if his symptoms Oct,izziness (ICD-10 - R42) Pt does complain of this dizziness, as well as a feeling of zoning out. He describes this as sitting at a red light, and then all of a sudden not realizing that time has gone by. He does follow with neurology, and I highly encouraged him to discuss this with neurology. He reports his father does have absent seizures. Pt will be holding his Emgality to see if this improves. Oct,Lower abdominal pain (ICD-10 - R10.30) Pt reports this began after he stopped drinking about 9 months ago. I did recommend Librax, and advised this would also help with his jitteriness. He is agreeable to this, therefore this was ordered for him. Oct,Muscle cramps (ICD-10 - R25.2) Oct,Elevated LDL cholesterol level (ICD-10 - E78.00) The above labs ordered. Oct,cid reflux (ICD-10 - K21.9) Pt does c/o acid reflux. He reports he has been waking up at night with a feeling of fullness in his throat. I did recommend the above medication, as well as avoiding eating before bed time. We will continue to monitor. Oct,OtherWe did have a lengthy discussion regarding pt's layoff. [facility] Other 12-28-2022 Evaluation note* Encounter Date Diagnosis Assessment Notes Treatment Notes Treatment Clinical Notes Jul, Migraine headache (ICD-10 - G43. 909) Patient is doing well on the medication. It seems to be keeping the migraines under control with little to no side effects to report. Patient is comfortable giving himself the injections. I will havemy nursing staff demonstrate again today the injection process and teach patient how to give to himself. Injection provided in office today with a sample. Samples provided Jul,therpt administered his own medication in the office today. [facility] Other 11-28-2022 Evaluation note* Encounter Date Diagnosis Assessment Notes Treatment Notes Treatment Clinical Notes Jun, Migraine headache (ICD-10 - G43. 909) The patient has been following with neurology for approximately five months with no changes in regard to his migraine headaches. Per patient he has some kind of headache, dizziness or light sensitivity every day. I have reviewed neurology consult notes, the patient has tried a few medications including , Relpaxin ,Trileptal , Doxepin and Sumatripatan. Per patient he took Trileptal for a week and states he feels it effected his mental health, he did have some relief with Sumatripatan. I suggest the patient try the once a month injectable Emgality. Postive and negative side effects reviewed andthe patient was in agreement. I did provide a sample and the first injection was administered in the office today . [facility] Other 07-27-2022 Evaluation note* Encounter Date Diagnosis Assessment Notes Treatment Notes Treatment Clinical Notes Feb, Migraine headache (ICD-10 - G43. 909) The patient states his headaches occur almost daily upon waking, is always tired and often feels dizzy, severity requires him to call off work approximalty three-four times a month lasting two- threedays at a time. I am in agreement with providing FMLA if necessary. Per patient at this time FMLA was completed by his neurologist Dr. Joey Beverly and PA , approval is pending employer [employer] . The patient does have a sleep study lined up and was started on Doxepin, encouraged to follow up with neurology as scheduled. Per patient he has stopped drinking alcohol. Feb,ermatitis (ICD-10 - L30.9) The patient presents with an itchy rash located on the lower abdomen/groin region ,per patient he does often sweat in this area. The above medication and instructions provided. [facility] Other 06-06-2022 Evaluation note* Encounter Date Diagnosis Assessment Notes Treatment Notes Treatment Clinical Notes Jan, Migraine headache (ICD-10 - G43. 909) The patient did consult with neurologist and feels the above medication has been effective, he states a sleep study was recommended and ordered. The patient encourged to continue following with neurology as schedueld. Jan,izziness (ICD-10 - R42) The patient states he does still have intermittent episodes of dizziness and feels as if he will pass out , most recent was while in a restaurant on a date. Vasovagel response discussed, I suggest ifhe does start to experience this and feels his heart rate increase to take several deep breaths . The patient did have a normal EEG and holter monitor , he did trigger the monitor during an episode that did not correlate with cardiac arrhythmia, tachycardia noted. 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 [facility] Other 05-09-2022 Evaluation note* Encounter Date Diagnosis Assessment Notes Treatment Notes Treatment Clinical Notes December, Dizziness (ICD-10 - R42) The patient states dizziness has resolved for the most part. The patient advised to keep the above medication on hand . December,Family history of seizure disorder (ICD-10 - Z82.0) EEG results reviewed with the patient that is completely normal for age. December,lurred vision, bilateral (ICD-10 - H53.8) December,hest pain (ICD-10 - R07.9) EKG was performed 12/06/21 at [facility] and reviewed with the patient that was essentially normal. December,Frontal sinusitis (ICD-10 - J32.1) Pt is to continue with the above medication until gone and we will continue to monitor. December,Tremulousness (ICD-10 - R25.1) The patient complains of episodes of his arms and chest feeling shaky and not like him self. Per patient the episode on Wednesday lasted approximatly five hours that put him into a migraine. 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 I did provide a off work extension for another week through 12/22/21. I will see him back at that time to re-evalaute. December,Migraine headache (ICD-10 - G43.909) The patient states he does have Relpax at home that he discontinued as he prefers to avoid medication and didn't think it worked well, feels Duexis worked much better. I do recommend he keep Relpax on hand and use for Migraine flareups and I did provide a sample of Duexis today. [facility] Other 05-06-2022 Noteprocedures and was symmetrical throughout the recording. Photic stimulation did not elicit aNorth [facility] Other 05-03-2022 Evaluation note* Encounter Date Diagnosis Assessment Notes Treatment Notes Treatment Clinical Notes December, Frontal sinusitis (ICD-10 - J32. 1) I did prescribe the above burst of steroids. We will re-evaluate next week. December,2Dizziness (ICD-10 - R42) Brain/head CT was normal. Vertigo maneuver preformed in the office. I will provide a work note for patient to be off from today until 12/15/21, may return back to work on 12/16/21. I prescribed the above medication and encouraged patient to take daily this week while he is off work. Discussed possible side effects with the meclizine. EEG ordered to rule out if this could be seizure activity. We will re-evaluate next week. December,Family history of seizure disorder (ICD-10 - Z82.0) EEG ordered and scheduled for patient to have done Wednesday morning at 10 am. We will see him back wednesday to review with him and determine further treatment December,uicidal ideation (ICD-10 - R45.851) Patient denies suicidal ideations today during conversation, states he was frustrated. Encouraged him to call with any concerns or worsening thoughts December,lurred vision, bilateral (ICD-10 - H53.8) Patient reports the blurred vision off and on. Will wait for EEG results. [facility] Other 04-27-2022 Evaluation note* Encounter Date Diagnosis Assessment Notes Treatment Notes Treatment Clinical Notes Nov, Screening for cardiovascular con dition (ICD-10 - Z13.6) Nov,Migraine headache (ICD-10 - G43.909) Nov,Near syncope (ICD-10 - R55) [facility] Other 11-12-2021 Evaluation note* Encounter Date Diagnosis Assessment Notes Treatment Notes Treatment Clinical Notes Jun, Tinea corporis (ICD-10 - B35.4) Discussed dx with patient. Instructed patient to apply cream as directed. Keep area clean by washing with warm soap and water, pat dry, avoid picking or scratching. Advised patient that ringworm is a contagious fungal infection, avoid direct skin to skin contact and sharing linens, contagious for approx 48 hours after starting antifungal treatment. If symptoms persist beyond 14 days of treatment follow up with PCP or derm. Watch for s/sx of infection including increase in redness, swelling, tenderness, warmth, drainage, red streaking. If sx of infection occur or if rash changes or spreads follow up with PCP. Patient verbalizes understanding and are agreeable to treatment plan [facility] Other 06-05-2019 History general Narrative - Reported* Type Description Date Medical History Headaches Medical Rassoyo9501/11/2019 EKGMedical Alrtyjl7104/22/2021 COVID + [facility] Other 06-05-2019 History general Narrative - Reported* Type Description Date Medical History Headaches Medical Khfpyff5201/11/2019 EKGMedical Jspasbc0304/22/2021 COVID +Medical History 02/2019 ECHOMedical Omrnkvf19/[address] [facility] 12/12/2021 EEGHospitalization Historysee above [facility] Other 06-05-2019 History general Narrative - Reported* Type Description Date Medical History Headaches Medical Ivseswk3601/11/2019 EKGMedical Ldusadz8204/22/2021 COVID +Medical History 02/2019 ECHOMedical Yvkhojz62/[address] [facility] Historysee above [facility] Other 06-05-2019 History general Narrative - Reported* Type Description Date Medical History Headaches Medical Rbtzvti2901/11/2019 EKGMedical Iapycua8004/22/2021 COVID +Medical History 02/2019 ECHOMedical Efleuuw37/[address] [facility] 12/12/2021 EEGMedical Ysiejsi44/2022 Sleep StudyHospitalization Historysee above [facility] Other 06-05-2019 History general Narrative - Reported* Type Description Date Medical History Headaches Medical Bjbwlbo1601/11/2019 EKGMedical Ztnifzf6804/22/2021 COVID +Medical History 02/2019 ECHOMedical Tmksahl21/[address] [facility] 12/12/2021 EEGMedical Mmbmdqz57/2022 Sleep StudyHospitalization HistoryNo know Hospitalization history [facility] Other 06-05-2019 History general Narrative - Reported* Type Description Date Medical History Headaches Medical Guybhbu2201/11/2019 EKGMedical Fhgauva5604/22/2021 COVID +Medical History 02/2019 ECHOMedical Qvcbgly52/[address] [facility] 12/12/2021 EEGMedical Vuxfcii37/2022 Sleep StudyHospitalization HistoryNo Hospitalization history information [facility] Other evaluation noteNo InformationNort [employer] Other evaluation noteNo assessment information available [facility] Work Phone: Evaluation note* Diagnosis Onset Date Resolution Status Generalized abdominal pressure acuteMigrainesacuteNeutropeniaacuteVertigoacuteViremiaacuteVitamin D deficiency acute [facility] Work Phone: Evaluation note* Diagnosis Onset Date Resolution Status Generalized abdominal pressure acuteMigrainesacuteNeutropeniaacuteVertigoacuteViremiaacuteVitamin D deficiency acuteFatigueacuteNeutropeniaacute [facility] Work Phone: Evaluation note* Diagnosis Migraine without status migrainosus, not intractable, unspecified migraine type (CMS/HCC)- Primary [facility] Diagnosis Migraine without status migrainosus, not intractable, unspecified migraine type (CMS/HCC)- Primary [facility]* Diagnosis Onset Date Resolution Status Admit Date Abdominal pain acuteJune 23, 2024 9:49amBlood in stoolacuteJune 23, 2024 9:49am Change in bowel habitsacuteJune 23, 2024 9:49amElevated LDL cholesterol levelacuteJune 23, 2024 9:49amNeutropeniaacuteJune 23, 2024 9:49am Vitamin D deficiencyacuteJune 23, 2024 9:49am [facility] Work Phone: Evaluation note* Diagnosis Migraine without status migrainosus, not intractable, unspecified migraine type (CMS/HCC)- Primary Depressed mood Dizziness Dizziness and giddiness Hypersomnia Hypersomnia, unspecified Balance problem Abnormality of gait [facility]* Diagnosis Dizziness- Primary Dizziness and giddiness Migraine without status migrainosus, not intractable, unspecified migraine type (CMS/HCC) documented [facility]* Diagnosis Migraine without status migrainosus, not intractable, unspecified migraine type (CMS/HCC)- Primary Dizziness Dizziness and giddiness Neck pain Cervicalgia Balance problem Abnormality of gait documented in [facility]* Diagnosis Migraine without status migrainosus, not intractable, unspecified migraine type (CMS/HCC)- Primary Vertigo Dizziness and giddiness Hypersomnia Hypersomnia, unspecified Neck pain Cervicalgia Shift work sleep disorder Circadian rhythm sleep disorder, shift work type Shifting sleep-work schedule, affecting sleep Circadian rhythm sleep disorder, shift work type [facility]* Diagnosis Vertigo- Primary Dizziness and giddiness Plugged feeling in ear, bilateral documented [facility]* Diagnosis Chronic sinusitis, unspecified location- Primary Migraine without status migrainosus, not intractable, unspecified migraine type (CMS/HCC) Vertigo Dizziness and giddiness documented in [facility]* Diagnosis Migraine without status migrainosus, not intractable, unspecified migraine type- Primary Chronic sinusitis, unspecified location Vertigo Dizziness and giddiness documented in this encounter [facility]* Author [facility]ie [facility] 2024 9:15amThe above note written by Pennie KIDD acting as human recorder, note dictated by Dr. Campos Lee. [facility] Work Phone: Evaluation note* Diagnosis COVID-19- Primary Cough, unspecified type Pharyngitis, unspecified etiology [facility] Additional Instructions All of your tests here looked fine. There is no sign of kidney problem, infection, or other evident problem tonight. Please follow up with your doctor.[facility] Work Phone: Reason for referral (narrative)No reason for referral information availableParkwood Hospital Work Phone: Advance Directives Advance Directive Response Recorded Date/ Time Advance Directives No December 24 9:26am Advance Directive Response Recorded Date/ Time Advance Directives No December 24 8:26am Chief Complaint and Reason for Visit Chief Complaint R51.9 H53.9 L56.8 Chief Complaint G43.909 [id number] a freq awake morning headaches Chief Complaint E78.00 R42 back pain Chief Complaint REVIEW LABS Reason for Visit Generalized abdomina l pressure Migraines Neutropenia Vertigo Viremia Vitamin D deficiency Chief Complaint E78.00 E55.9 REVIEW LABSReason for VisitGeneralized abdominal pressure Migraines Neutropenia Vertigo Viremia Vitamin D deficiency Chief Complaint E78.00 E55.9 REVIEW LABS D40.9 B34.9 REVIEW CBCReason for VisitGeneralized abdominal pressure Migraines Neutropenia Vertigo Viremia Vitamin D deficiency Fatigue Neutropenia Chief Complaint Admit Date stomach issues June 23, 2024 9:49am Reason for Visit Admit Date Abdominal pain June 23, 2024 9:49am Blood in stool June 23, 2024 9:49am Change in bowel habits June 23 9:49am Elevated LDL cholesterol level June 23, 2024 9:49am Neutropenia June 23, 2024 9:49am Vitamin D deficiency June 23, 2024 9:49am Chief Complaint Admit Date stomach issues June 23, 2024 9:49am R19.4 R10.81 K92.1 E78.00 E55.9 June 30, 2024 11:56am R53.83 D70.9 R10.84 July 04, 2024 11:24am FCE, work abilities July 11, 2024 8 :11am 3-4 week f/u July 19, 2024 10:14am vertigo August 07, 2024 7:54am [address] Dr Campos Lee: melena/abdominal pa in August 10, 2024 12:00pm Reason for Visit Admit Date Abdominal pain June 23, 2024 9:49am Blood in stool June 23, 2024 9:49am Change in bowel habits June 23 9:49am Elevated LDL cholesterol level June 23, 2024 9:49am Neutropenia June 23, 2024 9:49am Vitamin D deficiency June 23, 2024 9:49am Abdominal pain July 19, 2024 10:14am Blood in stool July 19, 2024 10:14am Change in bowel habits July 19 10:14am EBV positive mononucleosis syndrome [facility] 2023 10:14am Elevated liver enzymes July 19 10:14am Hepatomegaly July 19, 2024 10:14am Neutropenia July 19, 2024 10:14am Vertigo July 19, 2024 10:14am Abdominal pain August 10, 2024 12 :00pm Acid reflux August 10, 2024 12 :00pm Bloating August 10, 2024 12 :00pm BRBPR (bright red blood per rectum) Shiv dk 2024 12:00pm Chief Complaint Admit Date stomach issues June 23, 2024 9:49am R19.4 R10.81 K92.1 E78.00 E55.9 June 30, 2024 11:56am R53.83 D70.9 R10.84 July 04, 2024 11:24am FCE, work abilities July 11, 2024 8 :11am 3-4 week f/u July 19, 2024 10:14am K vertigo August 07, 2024 7:54am [address] Dr Campos Lee: melena/abdominal pa in August 10, 2024 12:00pm Chief Complaint Admit Date stomach issues June 23, 2024 9:49am R19.4 R10.81 K92.1 E78.00 E55.9 June 30, 2024 11:56am R53.83 D70.9 R10.84 July 04, 2024 11:24am FCE, work abilities July 11, 2024 8 :11am 3-4 week f/u July 19, 2024 10:14am K vertigo August 07, 2024 7:54am [address] Dr Campos Lee: melena/abdominal pa in August 10, 2024 12:00pm 6 week f/u September 04, 2024 9 :57am Reason for Visit Admit Date Abdominal pain June 23, 2024 9:49am Blood in stool June 23, 2024 9:49am Change in bowel habits June 23 9:49am Elevated LDL cholesterol level June 23, 2024 9:49am Neutropenia June 23, 2024 9:49am Vitamin D deficiency June 23, 2024 9:49am Abdominal pain July 19, 2024 10:14am Blood in stool July 19, 2024 10:14am Change in bowel habits July 19 10:14am EBV positive mononucleosis syndrome [facility] 2023 10:14am Elevated liver enzymes July 19 10:14am Hepatomegaly July 19, 2024 10:14am Neutropenia July 19, 2024 10:14am Vertigo July 19, 2024 10:14am Abdominal pain August 10, 2024 12 :00pm Acid reflux August 10, 2024 12 :00pm Bloating August 10, 2024 12 :00pm BRBPR (bright red blood per rectum) Shiv root 2024 12:00pm Abdominal pain September 04, 2024 9 :57am Vertigo September 04, 2024 9 :57am Left foot pain September 04, 2024 9 :57am Cervical pain (neck) September 04, 2024 9:57am Reason for Visit Admit Date Abdominal pain June 23, 2024 9:49am Blood in stool June 23, 2024 9:49am Change in bowel habits June 23 9:49am Elevated LDL cholesterol level June 23, 2024 9:49am Neutropenia June 23, 2024 9:49am Vitamin D deficiency June 23, 2024 9:49am Abdominal pain July 19, 2024 10:14am Blood in stool July 19, 2024 10:14am Change in bowel habits July 19 10:14am EBV positive mononucleosis syndrome Dece mb 2023 10:14am Elevated liver enzymes July 19 10:14am Hepatomegaly July 19, 2024 10:14am Neutropenia July 19, 2024 10:14am Vertigo July 19, 2024 10:14am Abdominal pain August 10, 2024 12 :00pm Acid reflux August 10, 2024 12 :00pm Bloating August 10, 2024 12 :00pm BRBPR (bright red blood per rectum) Shiv root 2024 12:00pm Abdominal pain September 04, 2024 9 :57am Left foot pain September 04, 2024 9 :57am Cervical pain (neck) September 04, 2024 9:57am Chief Complaint Admit Date stomach issues June 23, 2024 9:49am R19.4 R10.81 K92.1 E78.00 E55.9 June 30, 2024 11:56am R53.83 D70.9 R10.84 July 04, 2024 11:24am FCE, work abilities July 11, 2024 8 :11am 3-4 week f/u July 19, 2024 10:14am K vertigo August 07, 2024 7:54am [address] Dr Campos Lee: melena/abdominal pa in August 10, 2024 12:00pm 6 week f/u September 04, 2024 9 :57am R74.8 September 04, 2024 1 0:55am M54.2 September 06, 2024 1 :34pm Chief Complaint Admit Date FCE, work abilities July 11, 2024 8 :11am 3-4 week f/u July 19, 2024 10:14am K vertigo August 07, 2024 7:54am [address]er Dr Campos Lee: melena/abdominal pa in August 10, 2024 12:00pm 6 week f/u September 04, 2024 9 :57am R74.8 September 04, 2024 1 0:55am M54.2 September 06, 2024 1 :34pm 4-5 week f/u October 09, 2024 9:53 am Reason for Visit Admit Date Abdominal pain July 19, 2024 10:14am Blood in stool July 19, 2024 10:14am Change in bowel habits July 19 10:14am EBV positive mononucleosis syndrome Dece mber 2023 10:14am Elevated liver enzymes July 19 10:14am Hepatomegaly July 19, 2024 10:14am Neutropenia July 19, 2024 10:14am Vertigo July 19, 2024 10:14am Abdominal pain August 10, 2024 12 :00pm Acid reflux August 10, 2024 12 :00pm Bloating August 10, 2024 12 :00pm BRBPR (bright red blood per rectum) Shiv dk 2024 12:00pm Abdominal pain September 04, 2024 9 :57am Left foot pain September 04, 2024 9 :57am Cervical pain (neck) September 04, 2024 9:57am Cervical spine pain October 09, 2024 9:53 am Lack of motivation October 09, 2024 9:53 am Left foot pain October 09, 2024 9:53 am Chief Complaint Admit Date 3-4 week f/u July 19, 2024 10:14am K vertigo August 07, 2024 7:54am [address] Dr Campos Lee: melena/abdominal pa in August 10, 2024 12:00pm 6 week f/u September 04, 2024 9 :57am R74.8 September 04, 2024 1 0:55am M54.2 September 06, 2024 1 :34pm 4-5 week f/u October 09, 2024 9:53 am Z91.89 October 09, 2024 10:5 2am Chief Complaint Admit Date 4-5 week f/u October 09, 2024 9:53 am Z91.89 October 09, 2024 10:5 2am 2 months f/u December 15, 2024 8:24am Reason for Visit Admit Date Cervical spine pain October 09, 2024 9:53 am Lack of motivation October 09, 2024 9:53 am Left foot pain October 09, 2024 9:53 am Cervical spine pain December 15, 2024 8:24am Hypotestosteronism December 15, 2024 8:24am Lack of motivation December 15, 2024 8:24am Left foot pain December 15, 2024 8:24am Migraines December 15, 2024 8:24am Chief Complaint Admit Date 4-5 week f/u October 09, 2024 9:53 am Z91.89 October 09, 2024 10:5 2am 2 months f/u December 15, 2024 8:24am bloating/stomach pain discomfort /blood in stool January 05, 2025 9:12am Reason for Visit Admit Date Cervical spine pain October 09, 2024 9:53 am Lack of motivation October 09, 2024 9:53 am Left foot pain October 09, 2024 9:53 am Cervical spine pain December 15, 2024 8:24am Hypotestosteronism December 15, 2024 8:24am Left foot pain December 15, 2024 8:24am Migraines December 15, 2024 8:24am Abdominal pain January 05, 2025 9:12a m Acid reflux January 05, 2025 9:12a m Bloating January 05, 2025 9:12a m Blood in stool January 05, 2025 9:12a m Chief Complaint Admit Date bloating/stomach pain discomfort /blood in stool January 05, 2025 9:12am abpain nausea bloating, blood stool, con stipation January 30, 2025 10:06am Amb Documentation February 07, 2025 3:47p m 3 month follow up March 30, 2025 8: 37am Reason for Visit Admit Date Abdominal pain January 05, 2025 9:12a m Acid reflux January 05, 2025 9:12a m Bloating January 05, 2025 9:12a m Blood in stool January 05, 2025 9:12a m Abdominal pain March 30, 2025 8: 37am Bilateral hand numbness March 30 8:37am Gastritis and duodenitis March 30 8:37am Numbness and tingling of both feet Augus t 2024 8:37am Chief Complaint Admit Date abpain nausea bloating, blood stool, con stipation January 30, 2025 10:06am Amb Documentation February 07, 2025 3:47p m 3 month follow up March 30, 2025 8: 37am lung soreness post covid per bpk [facility] 2024 10:23am Reason for Visit Admit Date Abdominal pain March 30, 2025 8: 37am Bilateral hand numbness March 30 8:37am Gastritis and duodenitis March 30 8:37am Numbness and tingling of both feet Augus t 2024 8:37am Post covid-19 condition, unspecified Sep tember 2024 10:23am Chief Complaint Admit Date 3 month follow up March 30, 2025 8: 37am lung soreness post covid per bp[facility] [place] 10:23am 3-4 month follow up June [...] :52am Bloating June 08, 2025 8 :52am Assessments No Assessments Information Available Family History Relationship Condition Age at Onset Recorded Date/T marco father Seizures Unknown Not SpecifiedMigraine headacheUnknown Relationship Condition Age at Onset Recorded Date/T marco father Seizures Unknown motherMigraine headacheUnknownpaternal grandmotherHypertensionUnknownHigh blood cholesterolUnknownHeart diseaseUnknownGlaucomaUnknownfamily memberMalignant neoplasmUnknownpaternal grandfatherHigh blood cholesterolUnknownDementiaUnknown HypertensionUnknown Summary Purpose Additional Source Comments REASON FOR VISIT (unrecogniz ed section and content) ReasonCommentsMigraineReasonCommentsMigraineReasonCommentsMigraineDizziness ReasonCommentsMigraineDizzinessReasonCommentsVertigoNew patient : vertigo, headaches, sinusSpecialtyDiagnoses / ProceduresReferred By ContactReferred To ContactOtolaryngology Diagnoses Migraine without status migrainosus, not intractable, unspecified migraine type (CMS/HCC) Vertigo Procedures LA OFFICE/OUTPATIENT NEW HIGH MDM 60 MINUTES Nalini Asif PA [address] [place] [address] Phone: tel: fax: Curtis Musa, [address] [facility] [place] [address] Phone: tel: fax: Referral IDStatusReasonStart DateExpiration DateVisits RequestedVisits [id number] Specialty Services Required /[id number]L results Care Teams (unrecognized sec tion and content) Team Status: Active Member Role Status Dates Campos Lee DO Primary Care Provider Active Team Status: Active Member Role Status Dates Campos Lee DO Primary Care Provider Active Sta rt: January 30, 2025 Mayra L Ly , DOAttending ProviderActiveStart: January 30, 2025 Mayra L Ly , DOOther ProviderActiveStart: January 30, 2025 Team Status: Active Member Role Status Dates Campos Lee DO Primary Care Provider Active Sta rt: February 07, 2025 Marjorie Gandara , RMAAttending ProviderActiveStart: February 07, 2025 Team Status: Inactive Member Role Status Dates Campos Lee DO Primary Care Provider Active Sta rt: March 30, 2025 End: March 30deacon Lee DOAttending ProviderActiveStart: March 30, 2025 End: March 30, 2025 Team Status: Inactive Member Role Status Dates Campos Lee DO Primary Care Provider Active Sta rt: April 30, 2025 End: April 30deacon Lee DOAttending ProviderActiveStart: April 30, 2025 End: April 30, 2025 Team Status: Inactive Member Role Status Dates Campos Lee DO Primary Care Provider Active Ahmet Herr ProviderActiveStevzion Beverly , MDReferring ProviderActive Team Status: Inactive Member Role Status Dates Campos Lee DO Primary Care Provider, Attending Provi reuben Active Team Status: Inactive Member Role Status Dates Campos Lee DO Primary Care Provider Active Eloy Turner Jr, MDEmergency ProviderActive Team Status: Inactive Member Role Status Dates Campos Lee DO Primary Care Provide r, Attending Provider Active Start: October 25, 2023 End: October 25, 2023 Team Status: Inactive Member Role Status Dates Campos Lee DO Primary Care Provide r, Attending Provider Active Start: October 27, 2023 End: October 27, 2023 Team Status: Inactive Member Role Status Dates Campos Lee DO Primary Care Provide r, Attending Provider Active Start: November 22, 2023 End: November 22, 2023 Team Status: Inactive Member Role Status Dates Campos Lee DO Primary Care Provide r, Attending Provider Active Start: December 01, 2023 End: December 01, 2023Team MemberRelationshipSpecialtyStart DateEnd Date Campos Lee MD [address] [place] [address] PCP - General01/06/24Team MemberRelationshipSpecialtyStart DateEnd Date Campos Lee MD [address] [place], [place] [id number] PCP - General01/06/24Team MemberRelationshipSpecialtyStart DateEnd Date Campos Lee MD [address] [place], [place] [phone] PCP - General01/06/24Team MemberRelationshipSpecialtyStart DateEnd Date Campos Lee MD [address] [place], [place] [phone] PCP - General01/06/24 Team Status: Inactive Member Role Status Dates Campos Lee DO Primary Care Provide r, Attending Provider Active Start: June 23, 2024 End: June 23, 2024Team MemberRelationshipSpecialtyStart DateEnd Date Campos Lee MD [address] [place] [facility] [place] [address] PCP - General01/06/24 Joey Beverly MD [address] [place] [address] Referring IdgrdfbkfDpumfycvr52/14/24 Shannon Santoyo PA [address] [place] [address] Physician YejavoayrOsjjhsjep47/14/24Team MemberRelationshipSpecialtyStart Date End Date Campos Lee MD [address] [place] [facility] [place] [address] PCP - General01/06/24 Joey Beverly MD [address] [place] [address] Referring GwpyypwbcBluzcwovj37/14/24 Shannon Santoyo PA [address] [place] [address] Physician JckpojwljWzgdggbaa77/14/24Team MemberRelationshipSpecialtyStart Date End Date Campos Lee MD [address] [place] [facility] [place] [address] PCP - General01/06/24Team MemberRelationshipSpecialtyStart DateEnd Date Campos Lee MD [address] [place] [facility] [place] [address] PCP - General01/06/24 Team Status: Inactive Member Role Status Dates Campos Lee DO Primary Care Provide r, Attending Provider Active Start: June 30, 2024 End: June 30, 2024 Team Status: Inactive Member Role Status Dates Campos Lee DO Primary Care Provide r, Attending Provider Active Start: July 04, 2024 End: July 04, 2024 Team Status: Inactive Member Role Status Dates Campos Lee DO Primary Care Provider Active Sta rt: July 11, 2024 End: July 11IZABEL Corrales-Kevan ProviderActiveStart: July 11, 2024 End: July 11, 2024 Team Status: Inactive Member Role Status Dates Campos Lee DO Primary Care Provide r, Attending Provider Active Start: July 19, 2024 End: July 19, 2024 Team Status: Active Member Role Status Dates Campos Lee DO Primary Care Provider Active Sta rt: August 07, 2024 Varinder Lee DOAttending ProviderActiveStart: August 07, 2024 Team Status: Inactive Member Role Status Dates Campos Lee DO Primary Care Provider Active Sta rt: August 10, 2024 End: August 10reg Hylton DOAttending ProviderActiveStart: August 10, 2024 End: August 10, 2024 Team Status: Inactive Member Role Status Dates Campos Lee DO Primary Care Provider Active Sta rt: August 07, 2024 End: August 07saad Lee DOAttending ProviderActiveStart: August 07, 2024 End: August 07, 2024Team MemberRelationshipSpecialtyStart DateEnd Date Campos Lee MD [address] [place] [facility] [place] [address] PCP - General01/06/24 Joey Beverly MD [address] [place] [address] Referring CheakahloMikknzuzb71/14/24 Shannon Santoyo PA [address] [place] [address] Physician BtcckzutyEmkdildor93/14/24Team MemberRelationshipSpecialtyStart Date End Date Campos Lee MD [address] [place] [facility] [place] [address] PCP - General01/06/24 Joey Beverly MD [address] [place] [address] Referring ErtrpvaicIptafszwy33/14/24 Shannon Santoyo PA [address] [place] [address] Physician UlptwvuadUrlfgiqus51/14/24 Team Status: Inactive Member Role Status Dates Campos Lee DO Primary Care Provide r, Attending Provider Active Start: September 04, 2024 End: September 04, 2024 Team Status: Inactive Member Role Status Dates Campos Lee DO Primary Care Provide r, Attending Provider Active Start: September 06, 2024 End: September 06, 2024 Team Status: Inactive Member Role Status Dates Campos Lee DO Primary Care Provide r, Attending Provider Active Start: October 09, 2024 End: October 09, 2024Team MemberRelationshipSpecialtyStart DateEnd Date Campos Lee DO [address] [place] [facility] [place] [address] PCP - General01/06/24 Joey Beverly MD [address] [place] [address] Referring XyakpopfzOorqyfvxy84/14/24 Shannon Santoyo PA [address] [place] [address] Physician PlaltbcdpMxuajrqxf03/14/24Team MemberRelationshipSpecialtyStart Date End Date Campos Lee DO [address] [place] [facility] [place] [address] PCP - General01/06/24 Joey Beverly MD [address] [place] [address] Referring FqakxwyyjOtjwxfidn39/14/24 Shannon Santoyo PA [address] [place] [address] Physician GdmshwjvlMaofgkwur85/14/24Team MemberRelationshipSpecialtyStart Date End Date Campos Lee DO [address] [place] [facility] [place] [address] PCP - General01/06/24 Joey Beverly MD [address] [place] [address] Referring AnjjqacwmOsbldtwmx23/14/24 Shannon Santoyo PA [address] [place] [address] Physician FkvauguheTvcighxlw80/14/24Team MemberRelationshipSpecialtyStart Date End Date Campos Lee DO [address] [place] [facility] [place] [address] PCP - General01/06/24 Joey Beverly MD [address] [place] [facility] [place] [address] Referring QdicrsptgEtetwsmpo25/14/24 Shannon Santoyo PA [address] [place] [address] Physician AxlydztzwBtiqwztgv50/14/24 Team Status: Inactive Member Role Status Dates Campos Lee DO Primary Care Provide r, Attending Provider Active Start: December 15, 2024 End: December 15, 2024 Team Status: Inactive Member Role Status Dates Campos Lee DO Primary Care Provider Active Sta rt: January 05, 2025 End: January 05atherine Gabo Ly , Attending ProviderActiveStart: January 05, 2025 End: January 05, 2025Team MemberRelationshipSpecialtyStart DateEnd Date Campos Lee DO [address] [place] [facility] [place] [address] PCP - General01/06/24 Joey Beverly MD [address] [place] [address] Referring YftyzhwuwEukcxkpxh25/14/24 Shannon Santoyo PA [address] [place] [address] Physician VeutyvgwgIhznlvhkt54/14/24Team MemberRelationshipSpecialtyStart Date End Date Campos Lee DO [address] [place] [address] PCP - General01/06/24 Joey Beverly MD [address] [facility] [place] [address] Referring DucwpjwmtBnqqdejpf13/14/24 Shannon Santoyo PA [address] [place] [address] Physician NsmxudlpfJraksiiqd24/14/24 Nalini Asif PA [address] [place] [address] Physician AssistantNeurology01/08/25 Curtis Musa DO [address] [place] [address] Otolaryngology01/08/25Team MemberRelationshipSpecialtyStart DateEnd Date Campos Lee DO [address] [place] [facility] [place] [address] PCP - General01/06/24 Joey Beverly MD [address] [facility], [facility] Referring JtrbtrxmkCtxazboqn73/14/24 Shannon Santoyo PA [facility] [address] [facility], [facility] Physician BdasihbdaBwkhsotpn76/14/24 Nalini Asif PA [address] [place] [phone] Physician AssistantNeurology01/08/25 Curtis Musa DO [address] [place] [address] Otolaryngology01/08/25Team MemberRelationshipSpecialtyStart DateEnd Date Campos Lee DO [address] [place] [facility] [place] [address] PCP - General01/06/24 Joey Beverly MD [address] [facility], [facility] Referring JehusngwjUbbqcavec06/14/24 Shannon Santoyo PA [address] [facility], [facility] Physician YkcviznfqWlxysxhgy12/14/24 Nalini Asif PA [address] [place] [phone] Physician AssistantNeurology01/08/25 Curtis Musa, [address] [place] [address] Otolaryngology01/08/25Team MemberRelationshipSpecialtyStart DateEnd Date Campos Lee DO [address] [facility], [facility] [facility] - General01/06/24 Joey Beverly MD [address] [facility], [facility] Referring LqqndcwnxDyxjorszb25/14/24 Shannon Santoyo PA [address] [facility], [facility] Physician WxazyufftKffmzjmwo64/14/24 Nalini Asif PA [address] [place] [phone] Physician AssistantNeurology01/08/25 Curtis Musa, [address] [place] [address] Otolaryngology01/08/25Team MemberRelationshipSpecialtyStart DateEnd Date Campos Lee DO [address] [place] [facility] [place] [address] PCP - General01/06/24 Joey Beverly MD [address] [place] [facility] [place] [address] Referring KrbkaadruKljdswcae05/14/24 Shannon Santoyo PA [address] [place] [facility] [place] [address] Physician ThsgdarxeGnsbkwnhg31/14/24 Nalini Asif PA [address] [place] [address] Physician AssistantNeurology01/08/25 Curtis Musa DO [address] [facility] [place] [address] Otolaryngology01/08/25 Team Status: Active Member Role/Relationship Status Dates Campos Lee DO Primary Care Provider Active Team Status: Inactive Member Role/Relationship Status Dates Campos Lee DO Primary Care Provider Active Sta rt: March 30, 2025 End: March 30deacon Lee DOAttending ProviderActiveStart: March 30, 2025 End: March 30, 2025 Team Status: Inactive Member Role/Relationship Status Dates Campos Lee DO Primary Care Provider Active Sta rt: April 30, 2025 End: April 30deacon Lee DOAttending ProviderActiveStart: April 30, 2025 End: April 30, 2025 Team Status: Inactive Member Role/Relationship Status Dates Campos Lee DO Primary Care Provider Active Sta rt: June 08, 2025 End: June 08reg Hylton DOAttending ProviderActiveStart: June 08, 2025 End: June 08, 2025 Goals (unrecognized section and content) Goals may be documented in a n alternate section (unrecognized sect ion and content) No Status Records FoundNo Status Records Found INFORMATION SOURCE (unrecogn ized section and content) DATE CREATED AUTHOR 02/19/2025 [facility] DATE CREATED AUTHOR BASILIA LOPEZ 04/15/2025 [facility] EPIC FOR RECORDS PERTAINING TO PATIENTS WHO ARE OR HAVE BEEN ENROLLED IN A CHEMICAL DEPENDENCY/SUBSTANCEABUSE PROGRAM, SOME INFORMATION MAY BE OMITTED. This clinical summary was aggregated from multiple sources. Caution should be exercised in using it in the provision of clinical care. This summary normalizes information from multiple sources, and as a consequence, information in this document may materially change the coding, format and clinical context of patient data. In addition, data may be omitted in some cases. CLINICAL DECISIONS SHOULD BE BASED ON THE PRIMARY CLINICAL RECORDS. [facility] [employer] [facility]. provides no warranty or guarantee of the accuracy or completeness of information in this document.
--- NOTE | 2025-06-11 08:17 | ECG_ITS ---
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 Measurements Intervals [place] Rate: 73 P: 49 CO: 146 QRS: 41 QRSD: 108 T: 57 QT: 364 QTc: 389 Interpretive Statements 1100 Sinus rhythm 2440 Incomplete right bundle branch block 9130 borderline ECG Compared to ECG 06/22/2023 16:44:58 No significant changes Electronically Signed On 06-11-2025 12:47:23 EST by HALEY WILHELM M.D.
--- NOTE | 2025-06-11 08:17 | XR_ITS ---
The [place] [id number] Patient Name: SHY HARDWICK MRN: [id number] date: 2000 Sex: M Assigned Patient Location: ED.MAIN Current Patient Location: ED.MAIN Accession/Order Number: [id number] Exam Date: 06/11/2025 08:40 Report Date: 06/11/2025 09:11 At the request of: DOMINGO GORDNO MD Procedure: XR chest 1V PORTABLE AP ERECT CHEST 0824 hours CLINICAL HISTORY: Chest pain COMPARISON: None The heart is within normal limits. There is no vascular congestion. The lungs, as visualized, are clear. There is no effusion or pneumothorax. The osseous structures are intact. XR/XR chest 1V IMPRESSION: NO ACUTE FINDINGS Impression dictated by: Adenike Christensen M.D. 06/11/2025 9:11 AM Dictation Location: [place] [address] Electronically authenticated by: [id number] Y Date: 06/11/2025 09:11
--- NOTE | 2025-06-11 08:17 | ED_ITS ---
HPI - SOB/Dyspnea General Chief Complaint: Shortness of Breath/Dyspnea Stated Complaint: CHEST PAIN WEAKNESS Time Seen by Provider: 06/11/25 08:01 Source: patient Mode of arrival: walk-in History of Present Illness HPI Narrative: The patient is a 25-year-old male who is presenting to the ER after he has been diagnosed with COVID-19 at the beginning of April he has been having chronic issues including shortness of breath on exertion, patient also was complaining of right-sided chest pain that comes whenever he take a deep breath that started almost 3 days ago, the pain is related to movement and taking a deep breath and limited to the right side mostly posterior shoulder as well just below the arm. The patient denies any fever or chills he have a chronic cough The patient denies any nausea vomiting or any abdominal pain Related Data Previous Rx's ?Medication ?Instructions ?Recorded diclofenac sodium 75 mg 75 mg PO BID PRN pain #20 ta bs 06/11/25 tablet,delayed release Allergies Allergy/AdvReac Type Severity Reaction Status Date / Time Penicillins Allergy Mild Hives Verified 06/11/25 07:37 banana Allergy throat Verified 06/11/25 07:37 itchy eggs Allergy throat Uncoded 06/11/25 07:37 itchy Review of Systems ROS Status of ROS 10 or more systems reviewed and unremark able except as noted in history and below PFSH PFSH Social History Little interest or pleasure in doing things: not at all Feeling down, depressed, or hopeless: not at all Exam Narrative Exam Narrative: Nurses notes and vital signs reviewed and patient is not hypoxic. General: Well-appearing and in no apparent distress. Skin: Warm, dry, no pallor noted. No rash. Head: Normocephalic, atraumatic. Neck: Supple, non-tender. Cardiovascular: Regular Rate and Rhythm without murmur, gallop or rub. Respiratory: No accessory muscle use or respiratory distress. Lungs are clear to auscultation, no wheezing, rales or rhonchi Chest Wall: There is tenderness upon palpation of the right sided chest wall mostly at the scapula on the right side posteriorly Back: No midline thoracic or lumbar vertebral tenderness. No CVA tenderness Musculoskeletal: normal ROM, no calf or popliteal tenderness, no lower extremity edema/swelling GI: Abdomen is soft, non-distended. Normal bowel sounds. No masses appreciated. No tenderness to palpation. No rebound, guarding, or rigidity noted. Neurological: A&O x4. No cranial nerve dysfunction observed. Constitutional Vital Signs, click to edit/add: Last Vital Signs Temp 98.0 F 06/11/25 07:38 Pulse 78 06/11/25 07:38 Resp 18 06/11/25 07:38 BP 126/85 06/11/25 07:38 Pulse Ox 97 06/11/25 07:38 O2 Del Method Room Air 06/11/25 07:38 Course Vital Signs Vital signs: Vital Signs Temperature 98.0 F 06/11/25 07:38 Pulse Rate 78 06/11/25 07:38 Respiratory Rate 18 06/11/25 07:38 Blood Pressure 126/85 06/11/25 07:38 Pulse Oximetry 97 06/11/25 07:38 Oxygen Delivery Method Room Air 06/11/25 07:38 Temperature 98.0 F 06/11/25 07:38 Pulse Rate 78 06/11/25 07:38 Respiratory Rate 18 06/11/25 07:38 Blood Pressure 126/85 06/11/25 07:38 Pulse Oximetry 97 06/11/25 07:38 Oxygen Delivery Method Room Air 06/11/25 07:38 MDM - SOB/Dyspnea MDM Narrative Medical decision making narrative: The patient EKG showing sinus rhythm with a heart rate of [address] elevation or depression The patient pain mostly secondary to muscular pain with no the x-ray showed no acute pathology as well the EKG The patient will be discharged home with Magalys for pain control He was instructed that he to follow-up with his primary care for further evaluation of his lung function in case of continued shortness of breath after COVID diagnosis almost more than 2 months ago Other chronic reason for shortness of breath need to be ruled out which is not something feasible to do at the ER specially that he might need a lung function test with his history of smoking cigarettes The patient to follow-up with the primary care within 2 to 3 days and to come back to the ER in case of any worsening of the current symptoms or any new symptoms or concerns Discharge Plan Discharge Chief Complaint: Shortness of Breath/Dyspnea Clinical Impression: Chest wall pain Patient Disposition: Home, Self-Care Time of Disposition Decision: 09:19 Condition: Good Prescriptions / Home Meds: New diclofenac sodium 75 mg tablet,delayed release (DR/EC) 75 mg PO BID PRN (Reason: pain) Qty: 20 0RF Print Language: Argentine Instructions: Chest Wall Pain (ED) Referrals: Campos Lee DO [Primary Care Provider] - 1 week
[2025-06-11] MEDS: KETOROLAC TROMETHAMINE 30 MG/ML VIAL IM (08:25)
== END 2025-06-11 09:30 | disposition home or self-care (01) ==
PROVIDERS: Emergency Provider Emergency Medicine; PCP Family Medicine
DX: R07.89 Other chest pain (principal); Z86.16 Personal history of COVID-19; R06.02 Shortness of breath
CPT/HCPCS: 71045; 93005; 96372; 99284; J1885